=== PATIENT | female | born 1945 | race Caucasian/White ===

== ENCOUNTER 2019-09-25 11:30 | Outpatient (CLI) | payer MEDICARE, SELFPAY ==
--- NOTE | ~2019-09-25 | XR_ITS ---
XR wrist LT min 3V DATE: 09/25/2019 12:03 INDICATION: Left wrist and hand pain TECHNIQUE: 4 views COMPARISON: None FINDINGS: There is prominent osteoarthritic change at the first carpometacarpal joint. Moderate osteopenia. No fracture, dislocation, periosteal reaction or bone destruction. No erosive change or chondrocalcin osis. IMPRESSION: Osteoarthritis at first carpometacarpal joint Moderate osteopenia. Reviewed, dictated and finalized at location A.
--- NOTE | ~2019-09-25 | XR_ITS ---
XR hand LT min 3V DATE: 09/25/2019 12:03 INDICATION: Left hand pain TECHNIQUE: 3 views COMPARISON: None FINDINGS: There is osteoarthritis of the first carpometacarpal joint and multiple interphalangeal brissa nts with particularly severe involvement at the third and most severely at the second distal interpha langeal joints. There is medial subluxation at the second distal interphalangeal joint. There is caitlin re joint space narrowing and prominent spurring at the distal interphalangeal joints of the second an d third digits. Lesser osteoarthritic changes noted at additional interphalangeal joints of the hand. No fracture, dislocation, periosteal reaction or bone destruction. IMPRESSION: Polyarticular osteoarthritis, involving particularly the first carpometacarpal and second and third distal interphalangeal joints Reviewed, dictated and finalized at location A. IMPRESSION: Polyarticular osteoarthritis, involving particularly the first carp ometacarpal and second and third distal interphalangeal joints
== END 2019-09-25 11:31 | disposition home or self-care (01) ==
PROVIDERS: PCP Family Medicine; Visit Provider Nurse Practitioner Family
DX: M79.642 Pain in left hand (principal); M19.042 Primary osteoarthritis, left hand; M85.842 Other specified disorders of bone density and structure, left hand
CPT/HCPCS: 73110; 73130

== ENCOUNTER 2020-03-15 08:49 | Outpatient (CLI) | payer MEDICARE, SELFPAY ==
--- NOTE | ~2020-03-15 | MM_ITS ---
EXAMINATION: MM screening jaqueline BI w canelo HISTORY: Screening mammogram TECHNIQUE: Craniocaudal and mediolateral oblique 3-D tomosynthesis images were obtained and synthetic 2-D images were generated. CAD analysis was submitted and interpreted. COMPARISON: 03/06/2019, 03/04/2018, 03/09/2017 bilateral digital screening mammogram examinations BREAST PARENCHYMAL COMPOSITION: The breasts are heterogeneously dense, which may obscure small masses . FINDINGS: There are two biopsy markers on the right; history of two benign right breast biopsies. The re are multiple bilateral benign calcifications. There is no evidence of suspicious mass, calcificat ion, or architectural distortion to suggest malignancy in either breast. There has been no suspicious interval change. IMPRESSION: 1. No mammographic evidence of malignancy. 2. Recommend routine screening mammography in one year. BI-RADS Category 2: Benign finding(s). Reviewed, dictated and finalized at location A. LE HOME LOT UTILITY WORKER
== END 2020-03-15 08:50 | disposition home or self-care (01) ==
LOC: ANHIMG 08:56
PROVIDERS: PCP Family Medicine; Visit Provider Obstetrics & Gynecology Gynecology
DX: Z12.31 Encounter for screening mammogram for malignant neoplasm of breast (principal)
CPT/HCPCS: 77063; 77067

== ENCOUNTER 2020-05-25 11:53 | Observation (INO) | payer MEDICARE, SELFPAY ==
[2020-05-25] VITALS (13 sets, daily range): BP systolic 137–174; BP diastolic 70–84; PULSE 66–92; RESP 12–17; TEMP 36.4–36.9; O2SAT 98–100; BMI 21.4
--- NOTE | ~2020-05-25 | XR_ITS ---
EXAMINATION: XR chest 1V DATE: 05/25/2020 12:32 INDICATION: Syncope. TECHNIQUE: A single frontal view of the chest was obtained. COMPARISON: Chest single view 10/02/2016, chest CT 09/07/2006 FINDINGS: There is mild scarring at the lung apices. A calcified left lung nodule and calcified left hilar lymph nodes are consistent with old granulomatous disease. No pleural effusion or pneumothorax. The heart size is normal. IMPRESSION: 1. Mild scarring at the lung apices. Reviewed, dictated and finalized at location A. DENT CARE MANAGER RN
--- NOTE | ~2020-05-25 | CT_ITS ---
EXAMINATION: CT brain wo con DATE: 05/25/2020 12:31 INDICATION: Syncope. Headache. TECHNIQUE: Computed tomography (CT) of the head was performed without intravenous contrast. The mA wa s adjusted according to patient size. Iterative reconstruction technique was employed. Exam dose: 60 5.33 mGy-cm total exam DLP. COMPARISON: 02/24/2015 MRI brain/brainstem 02/24/[address] brain FINDINGS: No intracranial mass lesion or hemorrhage or recent cerebrovascular accident is evident. No midline shift or mass effect effect. Normal ventricular size. No subdural or epidural hematoma. Orbital contents are unremarkable. Mastoid air cells and included paranasal sinuses are unremarkable. No fracture or bone destruction of the cranial vault. IMPRESSION: No significant abnormality Reviewed, dictated and finalized at Location A. Reviewed, dictated and finalized at location A. MAN IMPRESSION: No significant abnormality
--- NOTE | ~2020-05-25 | US_ITS ---
EXAMINATION: US carotid duplex BI DATE: 05/26/2020 11:14 INDICATION: Syncope. TECHNIQUE: Grayscale, color Doppler, and pulsed Doppler images of the cervical carotid arteries were obtained. The degree of vessel stenosis is placed in one of the following categories: normal, <50%, 5 0-69%, >=70% but less than near-occlusion, near-occlusion, or total occlusion. Note that percent sten osis relative to normal distal artery lumen diameter is indirectly measured from velocity measurement s as described by Jun, et al. Radiology 2003; 229:340-346. COMPARISON: Ultrasound 02/25/2015 FINDINGS: RIGHT: The right common carotid artery (CCA) peak systolic velocity (PSV) is 86 cm/s. The right internal car otid artery (ICA) PSV is 97 cm/s. The right ICA end-diastolic velocity (EDV) is 26 cm/s. The right IC A/CCA PSV ratio is 1.1. Grayscale and color Doppler images yield an estimate of <50% diameter reducti on from plaque in the ICA. There is antegrade flow in the right vertebral artery. LEFT: The left CCA PSV is 74 cm/s. The left ICA PSV is 81 cm/s. The left ICA EDV is 32 cm/s. The left ICA/C CA PSV ratio is 1.1. Grayscale and color Doppler images yield an estimate of <50% diameter reduction from plaque in the ICA. There is antegrade flow in the left vertebral artery. IMPRESSION: 1. <50% stenosis in the right internal carotid artery. 2. <50% stenosis in the left internal carotid artery. Reviewed, dictated and finalized at location A. DEALER
--- NOTE | ~2020-05-25 | MR_ITS ---
EXAMINATION: MR brain/brain stem wo/w con EXAM DATE: 05/26/2020 10:52 INDICATION: Syncope. Dizziness. TECHNIQUE: Magnetic resonance imaging (MRI) of the brain/brain stem obtained without contrast. Sagit dian T1, axial diffusion, gradient echo (T2*), T1, T2, FLAIR sequences obtained. Patient was then inj ected with 10 cc intravenous Multihance contrast. Axial and coronal postcontrast T1 weighted sequence s obtained. Comparison is made to prior examination from 02/24/2015. FINDINGS: There are no areas of restricted diffusion to suggest acute infarction. There is no acute hemorrhage seen on the T2*, a hemosiderin sensitive sequence. No intraparenchymal brain mass lesion. Punctate old right pontine lacunar infarction. There is mild periventricular and subcortical T2/FL AIR signal hyperintensity, nonspecific but probably related to small vessel ischemic disease (microan giopathy). There are no extra-axial collections. Flow voids are seen in the cerebral arteries on t he T2-weighted sequences consistent with their expected patency. The orbits are unremarkable. Soft tissue is unremarkable. There are no areas of abnormal enhancement on the postcontrast images. IMPRESSION: 1. Punctate old right pontine lacunar infarction. 2. Chronic age related findings. Reviewed, dictated and finalized at location B. C TEACHER
--- NOTE | 2020-05-25 12:14 | ECG_ITS ---
Measurements Intervals [place] Rate: 66 P: 74 AK: 205 QRS: 64 QRSD: 102 T: 59 QT: 423 QTc: 446 Interpretive Statements SINUS RHYTHM POSSIBLE LEFT ATRIAL ENLARGEMENT BORDERLINE ECG Electronically Signed On 05-25-2020 13:06:53 PIPE INSULATOR HELPER by Bradford Pacheco D.O.
--- NOTE | 2020-05-25 12:17 | ED.SYNCOPE ---
HPI - Syncope General Chief Complaint: Syncope Stated Complaint: SYNCOPAL EVENT, DIZZINESS Time Seen by Provider: 05/25/20 12:00 Source: patient Mode of arrival: wheelchair Limitations: no limitations History of Present Illness HPI narrative: Patient is 74 year old female with history of hypertension who presents for evaluation of a syncopal episode. She states she pulled out to her orthodox and she started feeling back all over. She returns she then passed out. When she gained consciousness, she had nausea and a mild headache. She called her , and he drove her to ER. She reports weakness and difficulty standing due to weakness. She continues to have nausea, but denies fever, vomiting or diarrhea. She denies chest pain, shortness of breath, palpitations . She denies history of passing out. Related Data Home Medications Medication Instructions Recorded Confirmed amlodipine 5 mg PO DAILY 05/25/20 05/25/20 aspirin 325 mg PO HS 05/25/20 05/25/20 atorvastatin 20 mg PO HS 05/25/20 05/25/20 levothyroxine 25 mcg PO DAILY 05/25/20 05/25/20 lisinopril 40 mg PO DAILY 05/25/20 05/25/20 polysorbate 80-glycerin [Refresh 1 drp OPHTHALMIC (EYE) BID PRN 05/25/20 05/25/20 Dry Eye Therapy] Allergies Allergy/AdvReac Type Severity Reaction Status Date / Time No Known Allergies Allergy Verified 05/25/20 16:24 Review of Systems Review of Systems: All systems reviewed & are unremarkable except as noted in HPI and below PMFSH Past Medical History Medical History (Updated 05/25/20 @ 17:54 by Mary Garcias NP) Graves disease History of TIA (transient ischemic attack) HTN (hypertension) with goal to be determined Hyperlipidemia Hypertension Surgical History Surgical History (Updated 05/25/20 @ 12:25 by Renee Castro MD) H/O: hysterectomy Family History Family History (Updated 05/25/20 @ 17:49 by Mary Garcias NP) Mother Diabetes mellitus Father Acute myocardial infarction Social History Social History (Updated 05/25/20 @ 17:50 by Mary Garcias NP) Social History: The patient lives with her Fahad and he is the durable power securities attorney for healthcare. The patient is a full code. The patient has 3 children. 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 Rarely drinks alcohol and does not use marijuana or any illicit drugs. Smoking status: Never smoker Alcohol intake: former Alcohol use details: rarely Substance use: never Gender identity (if verbalized by the patient): Female Spiritual care concerns: No Exam Const: General: no acute distress and alert Orientation/consciousness: patient oriented x3 HENMT: Head: normocephalic and atraumatic Ears: TM's normal bilaterally Face and sinus: face symmetric Mouth: Yes Normal oral and palatal mucosa present, Yes lip normal, Yes oropharynx normal and Yes moist mucous membranes Throat: posterior oropharynx normal, tonsils normal and uvula midline Eyes: EOM: EOMs intact bilaterally Chest: Chest palpation & inspection: normal inspection of the chest Resp: Effort & Inspection: normal respiratory effort and no retractions Auscultation: clear to auscultation bilaterally Cardio: Rate: regular rate Rhythm: regular rhythm Heart sounds: no murmurs GI: GI Palp: Yes Soft to palpation, No Tenderness to palpation present (GI) and No Guarding due to palpation present (GI) Auscultation: normal bowel sounds Skin: General skin exam: normal color Rashes: no rashes Neuro: General: patient oriented x3, moves all extremities and CN's II-XI intact bilaterally Course Consultations Consultation #1: I discussed case with Mary who accepts for observation for evaluation of syncope Date: 05/25/20 Time: 13:22 Vital Signs Vital signs: Vital Signs Pulse Rate 70 05/25/20 12:04 Respiratory Rate 17 05/25/20 12:04 Blood Pressure 140/78 05/25/20 12:04 Pulse Oximetry 100 05/25/20 12:04 Tem
--- NOTE | 2020-05-25 12:26 | PC.NURSE ---
1226 - Patient to CT at this time.
[2020-05-25 12:31] LABS: Basophils Percent Auto 0.7 % (0.2-1.2); Eosinophils Absolute Auto 0.2 K/mm3 (0-0.3); Eosinophils Percent Auto 2.9 % (0-4.4); Hematocrit 38.2 % (37.0-47.0); Hemoglobin 12.1 g/dL (12.0-15.0); Immature Granulocyte Absolute 0.02 K/mm3 (0.00-0.031); Immature Granulocyte Percent A 0.3 % (0-0.5); Lymphocytes Absolute Auto 1.62 K/mm3 (0.9-3.2); Mean Corpuscular HGB Conc 31.7 g/dl (32-36); Mean Corpuscular Hemoglobin 30.9 pg (26-34); Mean Corpuscular Volume 97.7 fl (80-100); Mean Platelet Volume 9.5 fl (7.4-10.4); Monocytes Absolute Auto 0.8 K/mm3 (0.1-0.6); Monocytes Percent Auto 13.5 % (2.6-8.5); Neutrophils Absolute Auto 3.2 K/mm3 (1.3-6.7); Neutrophils Percent Auto 54.6 % (45.5-73.1); Platelet Count Result 151 k/mm3 (150-375); Red Blood Count 3.91 M/mm3 (4.2-5.4); Red Cell Distribution Width 12.7 % (11.5-14.5); White Blood Count 5.8 K/mm3 (4.5-10.0)
[2020-05-25] MEDS: ONDANSETRON INJ 4 MG/2 ML VIAL IV PUSH (12:43)
[2020-05-25 12:46] LABS: Alanine Aminotransferase 25 U/L (4-35); Albumin Level 4.1 g/dL (3.5-5.1); Alkaline Phosphatase 80 U/L (38-126); Anion Gap 9 mmol/L (8-16); Aspartate Amino Transferase 38 U/L (14-36); Bilirubin,Total 0.4 mg/dL (0.2-1.3); Blood Urea Nitrogen 17 mg/dL (7-17); Carbon Dioxide 27 mmol/L (22-30); Chloride 106 mmol/L (98-107); Estimated CRCL calculation 53 ml/min; Estimated Glomerular Filt Rate > 60; Glucose 110 mg/dL (65-105); Magnesium 1.8 mg/dL (1.6-2.3); Potassium 3.9 mmol/L (3.4-5.0); Sodium 142 mmol/L (137-145)
[2020-05-25 12:57] LABS: Add Urine Microscopic? NO; Appearance Urine Clear (Clear); Bacteria Urine Trace /hpf; Bilirubin Urine Negative (Negative); Blood Urine Negative (Negative); Color Urine Colorless (Yellow); Glucose Urine UA Negative (Negative); Ketones Urine Negative (Negative); Leukocyte Esterase Ur Negative LEU/UL (Negative); Mucus Urine Rare /lpf; Nitrate Urine Negative (Negative); Protein Urine Negative (Negative); RBC Urine 0-2 /hpf (0-2); Urobilinogen Urine Negative mg/dL (<2.0); WBC Urine 0-3 /hpf
[2020-05-25 13:00] LABS: Troponin I < 0.012 ng/mL (0.000-0.034)
[2020-05-25 13:05] LABS: INR 0.9; Prothrombin Time 12.7 Seconds (11.1-14.7)
[2020-05-25 13:07] LABS: Partial Thromboplastin Time 26.4 SECONDS (22.3-36.8)
[2020-05-25 14:03] LABS: Glucose Point of Care 97 (65-105)
--- NOTE | 2020-05-25 15:21 | PC.NURSE ---
1522 - Report called to RN on 3rd med floor.
--- NOTE | 2020-05-25 15:51 | ADMGEN ---
This patient, Óscar Pak, was admitted to 3 Medical Room 340-01. Patient/family oriented to hospital policies and general routines including ID bracelet, bed and alarms, visiting hours, pain management, procedures, bathroom and other care routines, personal items, smoking policy, room service/diet, and visiting hours. Information on how to activate the Rapid Response Team has been discussed. Patient/Family are encouraged to report perceived risks to care and to ask questions if they do not understand what they are told or what they should do.
--- NOTE | 2020-05-25 17:40 | PM.IMHP ---
H&P: HPI History of Present Illness Date/Time: 05/25/20 17:40 Chief Complaint: Syncopal episode Narrative: Óscar Pak is a 74 year old female of having crease disease and hypertension. The patient came in to the emergency room to be evaluated for syncopal episode today. The patient stated that she was going to pickle maker her granddaughter. She was outside of the yarsanism in her car. She said that she started to have a pain all over her body and felt very dizzy. She also felt very nauseated. She said she has not been sleeping very well. She said that she just blacked out in her car. The car was not moving she was just sitting there. She was not sure how long she lost consciousness but when she regained consciousness she called her . He came to pick her up. She did have weakness and difficulty standing at that time. Since that time I did ambulate her to the bathroom without any difficulty. She has no focal weakness. No difficulty swallowing or any slurred speech. She has no fever chills. Patient stated that usually her thyroid levels are within normal limits. She was due to have her thyroid level checked tomorrow. The chest x-ray was read as mild scarring at the lung bases. Head CT was noted to have no abnormalities. Patient's blood pressure 174/84. The patient stated that she started to feel much better but wanted to stay overnight just to be monitored. Heart rate is 66 and she sinus rhythm possible left atrial enlargement. Patient is being admitted into observation status on the date of service of 05/25/2020. Review of Systems Review of Systems: All systems reviewed & are unremarkable except as noted in HPI and below Constitutional: Constitutional: Reports as per HPI and Reports no additional constitutional complaints Eyes: Eyes: Reports as per HPI and Reports no additional eye complaints ENT: Reports system reviewed and no additional complaints, except as documented and Reports Normal hearing present Cardiovascular: Cardiovascular: Reports no additional cardiovascular complaints Respiratory: Respiratory: Reports no additional respiratory complaints and Reports no additional respiratory complaints Gastrointestinal: Gastrointestinal: Reports as per HPI and Reports no additional gastrointestinal complaints Musculoskeletal: Musculoskeletal: Reports no additional musculoskeletal complaints Integumentary/Breasts: Skin/Breast: Reports system reviewed and no additional complaints, except as docu and Reports as per HPI Neurologic: Reports system reviewed and no additional complaints, except as documented, Reports as per HPI and Reports Normal hearing present Psychiatric: Psychiatric: Reports no additional psychiatric complaints and Reports as per HPI Endocrine: Endocrine: Reports no additional endocrine complaints Hematologic/Lymphatic: Hematologic/Lymphatic: Reports no additional hematologic/lymphatic complaints Allergic/Immunologic: Allergic/Immunologic: Reports no additional allergic/immunologic complaints [facility] Past Medical History Medical History (Updated 05/25/20 @ 17:54 by Mary Garcias NP) Graves disease History of TIA (transient ischemic attack) HTN (hypertension) with goal to be determined Hyperlipidemia Hypertension Surgical History Surgical History (Updated 05/25/20 @ 12:25 by Renee Castro MD) H/O: hysterectomy Family History Family History (Updated 05/25/20 @ 17:49 by Mary Gracias NP) Mother Diabetes mellitus Father Acute myocardial infarction Social History Social History (Updated 05/25/20 @ 17:50 by Mary Garcias NP) Social History: The patient lives with her Fahad and he is the durable power corporate associate attorney for healthcare. The patient is a full code. The patient has 3 children. 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 Rarely drinks alcohol and does not use marijuana or any illicit drugs. Smoking status: Never smoker Alcohol intake:
[2020-05-25] MEDS: ASPIRIN 325 MG TABLET PO (20:01)
[2020-05-25] MEDS: ATORVASTATIN 20 MG TABLET PO (20:01)
[2020-05-26] VITALS (13 sets, daily range): BP systolic 129–153; BP diastolic 58–84; PULSE 64–100; RESP 16; TEMP 36.4–36.6; O2SAT 96–100
[2020-05-26] MEDS: LEVOTHYROXINE SODIUM 25 MCG TABLET PO (05:30)
--- NOTE | 2020-05-26 06:00 | ECHO_ITS ---
Patient Info Name: Óscar Pak Age: 74 years : 1945 Gender: Female Ht: 64 in Wt: 125 lbs BSA: 1.60 m2 HR: 78 bpm BP: 146 / 76 mmHg Heart Rhythm: Sinus Rhythm Technical Quality: Good Exam Date: 05/26/2020 2:12 PM Exam Location: [facility] Patient Status: Outpatient Admit Date: 05/25/2020 Staff Ordering Physician: Renee Castro MD No Bake Molder: Alicja Green RDCS Attending Provider: Fidelia Noble PA-C Referring Physician: Matthew PRICE; Exam Type: CA echo doppler color flow Study Info Indications R55 - Syncope and collapse Complete two-dimensional, color flow and Doppler transthoracic echocardiogram is performed. Summary 1. Complete two-dimensional, color flow and Doppler transthoracic echocardiogram is performed. 2. Left ventricular systolic function is normal, estimated at 65-70%. 3. There is no increased left ventricular wall thickness. 4. The left ventricular diastolic function is normal. 5. There is mild mitral valve regurgitation. 6. There is trace tricuspid valve regurgitation. 7. Unable to estimate PA systolic pressure due to poor spectral resolution of tricuspid regurgitant jet velocity. 8. There is trivial pericardial effusion, circumferentially. There is a moderate loculated pericardial effusion in proximity to the right atrium without apparent invagination of the right atrial free wall. No evidence of tamponade physiology. Left Ventricle Left ventricular chamber dimension is normal. Left ventricular systolic function is normal, estimated at 65-70%. There is no increased left ventricular wall thickness. The left ventricular diastolic function is normal. Right Ventricle Right ventricular chamber dimension is normal. Right ventricular systolic function is normal. Left Atria Left atrial chamber dimension is normal. Right Atria Right atrial chamber dimension is normal. Aortic Valve The aortic valve is probable trileaflet. There is no aortic valve stenosis. There is no aortic valve regurgitation. Pulmonic Valve The pulmonic valve is not well visualized. There is trace pulmonic regurgitation. Mitral Valve The mitral valve has normal leaflets. There is mild mitral valve regurgitation. The mitral valve annulus is moderately calcified. Tricuspid Valve The tricuspid valve leaflets are normal. There is trace tricuspid valve regurgitation. Unable to estimate PA systolic pressure due to poor spectral resolution of tricuspid regurgitant jet velocity. Pericardium/Pleural The pericardium appears normal. There is trivial pericardial effusion, circumferentially. There is a moderate loculated pericardial effusion in proximity to the right atrium without apparent invagination of the right atrial free wall. No evidence of tamponade physiology. Inferior Vena Cava Normal inferior vena cava with >50% collapse upon inspiration consistent with normal right atrial pressure, 5 mmHg. Aorta The aortic root size at the sinus of Valsalva is normal. Left Ventricular Outflow Tract Name Value Normal LVOT 2D LVOT Diameter 2.0 cm LVOT Doppler LVOT Peak Gradient
[2020-05-26 06:07] LABS: Chloride 105 mmol/L (98-107)
[2020-05-26 06:53] LABS: Alanine Aminotransferase 24 U/L (4-35); Albumin Level 3.6 g/dL (3.5-5.1); Alkaline Phosphatase 72 U/L (38-126); Anion Gap 3 mmol/L (8-16); Aspartate Amino Transferase 34 U/L (14-36); Bilirubin,Total 0.5 mg/dL (0.2-1.3); Blood Urea Nitrogen 17 mg/dL (7-17); Calcium 8.8 mg/dL (8.4-10.2); Carbon Dioxide 29 mmol/L (22-30); Estimated CRCL calculation 42 ml/min; Estimated Glomerular Filt Rate > 60; Glucose 97 mg/dL (65-105); Magnesium 2.1 mg/dL (1.6-2.3); Potassium 4.2 mmol/L (3.4-5.0); Sodium 137 mmol/L (137-145)
[2020-05-26] MEDS: lisinopriL 20 MG TABLET 40 MG PO (09:04)
[2020-05-26] MEDS: amLODIPine BESYLATE 5 MG TABLET PO (09:04)
--- NOTE | 2020-05-26 16:08 | PM.IMPN ---
Progress Note: A&P Assessment and Plan (1) Syncopal episodes: Code(s): R55 - Syncope and collapse Status: Acute Assessment and Plan: Patient's symptoms seem more concerning for possible seizure (absence versus partial) or possible cardiac arrhythmia -will await echo -telemetry shows no abnormal arrhythmias. There are few PVCs -neurology has been consulted and recommended an EEG -patient may benefit from a 28 day Holter monitor if etiology is not found -we discussed that she will not be able to drive for at least a month until we make sure this does not reoccur -MRI and carotids negative for acute pathology -she does have a history of stroke on MRI that she takes aspirin for (2) Graves disease: Code(s): E05.00 - Thyrotoxicosis with diffuse goiter without thyrotoxic crisis or storm Status: Chronic Assessment and Plan: TSH within normal limits (3) Hyperlipidemia: Code(s): E78.5 - Hyperlipidemia, unspecified Status: Chronic Assessment and Plan: Chronic, continue atorvastatin (4) HTN (hypertension) with goal to be determined: Code(s): I10 - Essential (primary) hypertension Status: Acute Assessment and Plan: Last blood pressure 146/79 - Continue with amlodipine and lisinopril. Time Spent With Patient Time with patient: 25 - 35 minutes Subjective Date/time seen: 05/26/20 16:08 Interval history: Pt is a 74-year-old female here for loss of consciousness. Patient was seen today and there is events were reviewed again with her. She states that she was in her normal state health and she was sitting in her parked car and then suddenly felt out of her body . She had no numbness, tingling, involuntary movements, sweating, lightheadedness, or dizziness immediately prior to this. She just stated she felt weird and then noticed she had possible loss of consciousness because she does not remember what happened for a few seconds. She did not fall forward or anything like that. She does not recall any involuntary movements and did not have any pain or focal weakness afterwards. Immediately after, she was able to call her . She got out of the car and said she generally felt weak and nauseated but no other symptoms. This is never happened before in the past other than her syncopized being more than 20 years ago after standing at a hospital which does not seem to be related. At this time she has not had any recurrence. Pt denies nausea, vomiting, fevers, chills, constipation, diarrhea, chest pain, sob, or abdominal pain. Review of Systems Review of Systems: All systems reviewed & are unremarkable except as noted in HPI and below Exam Narrative: Exam Narrative: General: Well developed well nourished patient in NAD HEENT: normocephalic Neck: supple Neuro: Alert and oriented x4. Cranial nerves 2-12 intact. Equal strength the upper lower extremities 5/5. Able to do alternating movements and [id number] CV:RRR. Telemetry just shows occasional PVCs Resp:CTA Abd: Soft, non distended. No pain to palpation. Positive bowel sounds Extremities: No swelling, erythema, or pain to palpation. Objective Data Vital Signs Vital Signs: Vital Signs - 24 hr 05/25/20 19:40 05/25/20 19:42 05/25/20 19:44 Temperature 98.4 F Pulse Rate 74 Respiratory Rate 16 Blood Pressure 137/74 137/73 143/82 H Pulse Oximetry 99 05/25/20 20:00 05/26/20 00:00 05/26/20 04:00 Temperature Pulse Rate 69 75 66 Respiratory Rate Blood Pressure Pulse Oximetry 05/26/20 05:29 05/26/20 08:00 05/26/20 08:09 Temperature 97.7 F Pulse Rate 71 100 Respiratory Rate 16 Blood Pressure 136/58 L 145/79 H Pulse Oximetry 96 05/26/20 08:10 05/26/20 12:00 05/26/20 13:56 Temperature 97.6 F Pulse Rate 77 77 Respiratory Rate 16 Blood Pressure 143/84 H 146/79 H Pulse Oximetry 100 Intake/Output Intake/Output: Intake & Outpu
[2020-05-26] MEDS: SACCHAROMYCES BOULARDII 250 MG CAPSULE PO (18:15)
[2020-05-26] MEDS: ASPIRIN 325 MG TABLET PO (22:25)
[2020-05-26] MEDS: ATORVASTATIN 20 MG TABLET PO (22:26)
[2020-05-27] VITALS (8 sets, daily range): BP systolic 131–143; BP diastolic 55–80; PULSE 65–90; RESP 16; TEMP 36.2; O2SAT 98
[2020-05-27] MEDS: LEVOTHYROXINE SODIUM 25 MCG TABLET PO (06:37)
[2020-05-27] MEDS: lisinopriL 20 MG TABLET 40 MG PO (08:24)
[2020-05-27] MEDS: SACCHAROMYCES BOULARDII 250 MG CAPSULE PO (08:24)
[2020-05-27] MEDS: amLODIPine BESYLATE 5 MG TABLET PO (08:25)
--- NOTE | 2020-05-27 12:06 | WPDNEURCNPN ---
Assessment and Plan Assessment and plan (1) Syncopal episodes: Code(s): R55 - Syncope and collapse Status: Acute (2) Graves disease: Code(s): E05.00 - Thyrotoxicosis with diffuse goiter without thyrotoxic crisis or storm Status: Chronic (3) HTN (hypertension) with goal to be determined: Code(s): I10 - Essential (primary) hypertension Status: Acute (4) Hyperlipidemia: Code(s): E78.5 - Hyperlipidemia, unspecified Status: Chronic Additional Plan all the pros and cons of the diagnosis were discussed with the patient, at this stage we do not think that it is seizure but in the future if episodes recur then they would like to re-evaluate her and follow in the office. Consult date: 05/27/20 Time Seen: 12:00 HPI: Óscar Pak is a 74 year old female admitted to the hospital for syncopal episode, reportedly she was going to shrimp picker her granddaughter and was outside of the restorationist in her car when she started having pain all over her body and felt extremely dizzy along with the nausea. she has not been sleeping very well. she blacked out in the car and was not sure how long she was out but when she became conscious she called her . subsequently was experiencing weakness and difficulties in standing, at the time of initial evaluation in the ER chest x-ray was negative ,CT scan the brain was normal . admitted to the hospital for further observation. does have a history of Graves disease, TIA in the past, hypertension and hyperlipidemia, never smoker former alcohol drinker and medications included amlodipine aspirin and atorvastatin levothyroxine lisinopril with no allergies. Doppler study of the carotid less than 50% stenosis bilaterally, echocardiogram with mild mitral valve regurgitation tricuspid regurgitation and trivial pericardial effusion circumferentially, MRI with chronic age-related finding along with punctate old right pontine lacunar infarction. Review of Systems Review of Systems: All systems reviewed & are unremarkable except as noted in HPI and below PMFSH Past Medical History Medical History Graves disease History of TIA (transient ischemic attack) HTN (hypertension) with goal to be determined Hyperlipidemia Hypertension Surgical History Surgical History H/O: hysterectomy Family History Family History Mother Diabetes mellitus Father Acute myocardial infarction Social History Social History Social History: The patient lives with her Fahad and he is the durable power attorney general for healthcare. The patient is a full code. The patient has 3 children. 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 Rarely drinks alcohol and does not use marijuana or any illicit drugs. Smoking status: Never smoker Alcohol intake: former Alcohol use details: rarely Substance use: never Gender identity (if verbalized by the patient): Female Spiritual care concerns: No Meds Home Medications and Allergies Home Medications Medication Instructions Recorded Confirmed Type amlodipine 5 mg PO DAILY 05/25/20 05/25/20 History aspirin 325 mg PO HS 05/25/20 05/25/20 History atorvastatin 20 mg PO HS 05/25/20 05/25/20 History levothyroxine 25 mcg PO DAILY 05/25/20 05/25/20 History lisinopril 40 mg PO DAILY 05/25/20 05/25/20 History polysorbate 80-glycerin [Refresh 1 drp OPHTHALMIC (EYE) BID PRN 05/25/20 05/25/20 History Dry Eye Therapy] Allergies Allergy/AdvReac Type Severity Reaction Status Date / Time No Known Allergies Allergy Verified 05/25/20 16:24 Vital Signs Vital Signs - 24 hr 05/26/20 13:56 05/26/20 16:00 05/26/20 19:33 Temperature 36.4 C 36.6 C Pulse Rate 77 81 64 Respiratory Rate 16 16 Blood Pressure 146/79 H 1
--- NOTE | 2020-05-27 12:37 | P.NEURO_ITS ---
Neurology EEG Report General Information Date of Study: 05/27/20 TEST eeg DIAGNOSIS Syncopal episode CONDITION OF RECORDING awake drowsy and sleep EEG NUMBER 21-85 CLINICAL HISTORY patient reported she loss consciousness 2 days ago for a very brief movement and then was nauseous and weak. A new arthritis medication was started about 2 days ago EEG DESCRIPTION basic resting occipital frequency consists of large amount of well-organized l ow to medium voltage 8 to 10 hertz per 2nd alpha admixed with minimal amount of low-voltage 15 to 18 hertz per 2nd beta. During drowsiness low-voltage beta activity seen diffusely admixed with waxing and waning alpha activity posteriorly. Bilateral symmetrical sleep activity seen during sleep hyperventilation not done photic stimulation not done. Non paroxysmal. Nonfocal. Nonlateralizing. IMPRESSION Normal EEG
--- NOTE | 2020-05-27 13:25 | PM.DS ---
DS: Admitting Diagnosis Admitting Diagnosis Admitting Diagnosis: Loss of consciousness DS: Discharge Diagnosis Discharge Diagnosis (1) Syncopal episodes: Code(s): R55 - Syncope and collapse Status: Acute Assessment and Plan: Syncope verses loss of consciousness -echo nor EEG shows any abnormality -telemetry shows no abnormal arrhythmias. There are few PVCs -neurology has been consulted and has no additional recommendations -patient may benefit from a 28 day Holter monitor if this reoccurs. plan to f/u with pcp and cardiology -we discussed that she will not be able to drive for at least a month until we make sure this does not reoccur -MRI and carotids negative for acute pathology -she does have a history of stroke on MRI that she takes aspirin for (2) Graves disease: Code(s): E05.00 - Thyrotoxicosis with diffuse goiter without thyrotoxic crisis or storm Status: Chronic Assessment and Plan: TSH within normal limits (3) Hyperlipidemia: Code(s): E78.5 - Hyperlipidemia, unspecified Status: Chronic Assessment and Plan: Chronic, continue atorvastatin (4) HTN (hypertension) with goal to be determined: Code(s): I10 - Essential (primary) hypertension Status: Acute Assessment and Plan: Last blood pressure 140/76 - Continue with amlodipine and lisinopril. (5) Abnormal echocardiogram: Code(s): R93.1 - Abnormal findings on diagnostic imaging of heart and coronary circulation Status: Acute Assessment and Plan: Echo states: There is trivial pericardial effusion, circumferentially. There is a moderate loculated pericardial effusion in proximity to the right atrium without apparent invagination of the right atrial free wall. No evidence of tamponade physiology. Spoke with the patient and Cardiology about this. She has no signs of tamponade and I do not believe this is the cause of her syncope. Cardiology recommended to follow-up with them in the office. I educated the patient on worrisome signs and symptoms to come back to emergency room for. DS: Summary Hospital Course Hospital Course: Patient is 74-year-old female with a past medical history of hypertension and previous stroke who presented emergency room for a few seconds of loss of conscious. Patient states she was sitting in her car and then felt like she spaced out . She states that she was in her normal state health and she was sitting in her parked car and then suddenly felt out of her body . She had no numbness, tingling, involuntary movements, sweating, lightheadedness, or dizziness immediately prior to this. She just stated she felt weird and then noticed she had possible loss of consciousness because she does not remember what happened for a few seconds. She did not fall forward or anything like that. She does not recall any involuntary movements and did not have any pain or focal weakness afterwards. Immediately after, she was able to call her . She got out of the car and said she generally felt weak and nauseated but no other symptoms. This is never happened before in the past other than her syncopized being more than 20 years ago after standing at a hospital which does not seem to be related. During this hospitalization she underwent a brain MRI which showed an old stroke but nothing new, carotid Doppler which showed no significant disease, EEG which was normal, and was monitored on telemetry which showed no arrhythmias. Labs, including TSH, were normal. UA negative. She did have an echo that was abnormal, please see above for further details. All-in-all, the patient did not have any recurring symptoms and was eager for discharge. She was educated about worrisome signs and symptoms to come back to emergency room for and was discharged in stable condition. Status at Discharge Functional status at discharge: independent ambulation Overall status
== END 2020-05-27 13:50 | disposition home or self-care (01) ==
LOC: ANHED 13:43 → ANH3MED 14:43
PROVIDERS: Nurse Practitioner; Admitting Provider Internal Medicine; Emergency Provider General Practice; PCP Family Medicine; Visit Provider Physician Assistant
DX: R55 Syncope and collapse (principal); E05.00 Thyrotoxicosis with diffuse goiter without thyrotoxic crisis or storm; E78.5 Hyperlipidemia, unspecified; I10 Essential (primary) hypertension; R93.1 Abnormal findings on diagnostic imaging of heart and coronary circulation; R53.1 Weakness; R91.8 Other nonspecific abnormal finding of lung field; I31.3 Pericardial effusion (noninflammatory); I65.23 Occlusion and stenosis of bilateral carotid arteries; R11.0 Nausea; Z79.82 Long term (current) use of aspirin; Z79.899 Other long term (current) drug therapy; Z86.73 Personal history of transient ischemic attack (TIA), and cerebral infarction without residual deficits
CPT/HCPCS: 36415; 70450; 70553; 71045; 80053; 81003; 82948; 83605; 83735; 84443; 84484; 85025; 85610; 85730; 93005; 93306; 93880; 95816; 96374; 99285; A9270; A9577; G0378; J2405

== ENCOUNTER → 2020-06-29 13:25 | Outpatient (CLI) | payer MEDICARE, SELFPAY ==
--- NOTE | ~2020-06-29 | DEXA_ITS ---
Bone Density Report Name: Óscar Pak Age: 74 Sex: Female Ethnicity: White Date of : 1945 Indication: osteopenia; hysterectomy; Referring Provider: CATALINA LOPEZ Study: Bone densitometry was performed. Exam Date: June 29, 2020 Accession number: [id number] Bone Density: Region BMD T-score Z-score Classification AP Spine (L1-L4) 0.983 -0.6 1.7 Normal Femoral Neck (Left) 0.596 -2.3 -0.3 Osteopenia Total Hip (Left) 0.855 -0.7 1.0 Normal Femoral Neck (Right) 0.570 -2.5 -0.5 Osteoporosis Total Hip (Right) 0.749 -1.6 0.1 Osteopenia Total Hip Mean 0.802 -1.2 0.6 Osteopenia World Health Organization criteria for BMD impression classify patients as: Normal (T-score at or above -1.0), Osteopenia (T-score between -1.0 and -2.5), or Osteoporosis (T-score at or below -2.5). 10-year Fracture Risk: FRAX not reported because: Some T-score for Spine Total or Hip Total or Femoral Neck at or below -2.5 Previous Exams: Region Exam Age BMD T-score BMD Change BMD Change Date g/cm2 vs Baseline vs Previous AP Spine(L1-L4) 06/29/2020 74 0.983 -0.6 -0.025* -0.029* 03/05/2018 72 1.012 -0.3 0.004 -0.013 01/18/2016 70 1.025 -0.2 0.017 0.017 07/29/2009 63 1.008 -0.4 Total Hip(Left) 06/29/2020 74 0.855 -0.7 0.020 -0.014 03/05/2018 72 0.869 -0.6 0.034* -0.016 01/18/2016 70 0.885 -0.5 0.050* 0.050* 07/29/2009 63 0.835 -0.9 Total Hip(Right) 06/29/2020 74 0.749 -1.6 0.009 -0.022 03/05/2018 72 0.770 -1.4 0.030* -0.020 01/18/2016 70 0.791 -1.2 0.050* 0.050* 07/29/2009 63 0.740 -1.7 *Denotes significance at 95% confidence level, LSC for AP Spine = 0.022 g/cm2, LSC for Total Hip = 0.027 g/cm2 Clinical Information Provided by Patient: Has used the following medications: Vitamin D Has the following medical conditions: Hysterectomy Patient maximum height was 64.5 Menopause Age: 51 Does not regularly consume dairy products Drinks caffeinated beverages Onset of menses at age 14 Number of children 3 Impression: The patient has osteoporosis, based on the Right Femoral Neck T-score. The BMD for the AP Spine(L1-L4) decreased, changing by -0.029 since the last DXA exam. Discussion: INCREASED RISK OF FRACTURE. BONE DENSITY IS UNDESIRABLY LOW AT ONE OR MORE SKE
== END ==
PROVIDERS: PCP Family Medicine; Visit Provider Obstetrics & Gynecology Gynecology
DX: Z78.0 Asymptomatic menopausal state (principal); M85.852 Other specified disorders of bone density and structure, left thigh; M85.851 Other specified disorders of bone density and structure, right thigh; M81.0 Age-related osteoporosis without current pathological fracture
CPT/HCPCS: 77080

== ENCOUNTER 2020-08-15 13:43 | Outpatient (CLI) | payer MEDICARE, SELFPAY ==
--- NOTE | ~2020-08-15 | CT_ITS ---
EXAMINATION: CT brain wo/w con DATE: 08/15/2020 14:16 INDICATION: Syncope. TECHNIQUE: Computed tomography (CT) of the head was performed without and with 100 mL Omnipaque 350 i ntravenous contrast. The mA was adjusted according to patient size. Iterative reconstruction techniqu e was employed. The dose-length product was 1210.67 mGy-cm. COMPARISON: Head CT 05/25/2020, brain MRI 05/25/2020 FINDINGS: There are scattered areas of low attenuation in the cerebral white matter, which is within normal limits for the patient's age. There is no intracranial hemorrhage, acute infarction, or abnorm al intracranial mass lesion. The ventricles are normal in size. The paranasal sinuses are clear. Ther e is a small right mastoid effusion. IMPRESSION: 1. Normal aging brain. Reviewed, dictated and finalized at location A. IMPRESSION: 1. Normal aging brain.
[2020-08-15 14:08] LABS: Estimated Glomerular Filt Rate > 60
== END 2020-08-15 13:44 | disposition home or self-care (01) ==
PROVIDERS: PCP Family Medicine; Visit Provider Nurse Practitioner Family
DX: R55 Syncope and collapse (principal)
CPT/HCPCS: 70470; Q9967

== ENCOUNTER 2021-03-22 15:02 | Outpatient (CLI) | payer MEDICARE, SELFPAY ==
--- NOTE | ~2021-03-22 | MM_ITS ---
EXAMINATION: MM screening jaqueline BI w canelo HISTORY: Screening mammogram TECHNIQUE: Craniocaudal and mediolateral oblique 3-D tomosynthesis images were obtained and synthetic 2-D images were generated. CAD analysis was submitted and interpreted. COMPARISON: 03/15/2020, 03/06/2019, 03/04/2018 bilateral screening mammogram examinations BREAST PARENCHYMAL COMPOSITION: The breasts are heterogeneously dense, which may obscure small masses . FINDINGS: Right-sided biopsy markers are again noted; history of prior benign right breast biopsies. Scattered bilateral benign calcifications are again noted. There is no evidence of suspicious mass, c alcification, or architectural distortion to suggest malignancy in either breast. There has been no s uspicious interval change. IMPRESSION: 1. No mammographic evidence of malignancy. 2. Recommend routine screening mammography in one year. BI-RADS Category 2: Benign finding(s). Reviewed, dictated and finalized at location A. ETIC SALES CONSULTANT
== END 2021-03-22 15:03 | disposition home or self-care (01) ==
LOC: ANHIMG 15:04
PROVIDERS: PCP Family Medicine; Visit Provider Obstetrics & Gynecology Gynecology
DX: Z12.31 Encounter for screening mammogram for malignant neoplasm of breast (principal)
CPT/HCPCS: 77063; 77067

== ENCOUNTER → 2021-10-06 09:32 | Outpatient (CLI) | payer MEDICARE, SELFPAY ==
--- NOTE | ~2021-10-06 | XR_ITS ---
XR_CERV2-3V_CR DATE: 10/06/2021 10:04 INDICATION: Neck pain TECHNIQUE: Standing AP, lateral, open-mouth and swimmer views COMPARISON: None FINDINGS: C1 and C2 are normally aligned and the odontoid process is intact. There is mild loss of height at C2-3 interspace. There is 3 mm anterolisthesis at C5-6. There is severe degenerative change at the apophyseal joints of the cervical spine. No fracture or dislocation or locked facet or prevertebral soft tissue swelling is detected. IMPRESSION: Severe degenerative change of the apophyseal joints of the cervical spine 3 mm anterolisthesis at C5-6 Reviewed, dictated and finalized at Location A. Reviewed, dictated and finalized at location A.
--- NOTE | ~2021-10-06 | XR_ITS ---
XR thoracic spine 2V DATE: 10/06/2021 10:04 INDICATION: Thoracic back pain TECHNIQUE: AP, lateral views COMPARISON: 10/06/2021 cervical spine FINDINGS: There is osteopenia. There is mild anterolisthesis at T1-2. There is moderate levoscoliosis of the thoracic spine. The thoracic pedicles are intact. No fracture or dislocation or bone destruction is detected. No para spinal soft tissue thickening. IMPRESSION: Osteopenia Levoscoliosis Mild anterolisthesis at T1 -2 Reviewed, dictated and finalized at location A.
== END ==
PROVIDERS: PCP Family Medicine; Visit Provider Nurse Practitioner Family
DX: M85.88 Other specified disorders of bone density and structure, other site (principal); M50.30 Other cervical disc degeneration, unspecified cervical region
CPT/HCPCS: 72040; 72070

== ENCOUNTER → 2021-10-26 10:42 | Outpatient (CLI) | payer MEDICARE, SELFPAY ==
--- NOTE | ~2021-10-26 | MR_ITS ---
EXAMINATION: MR cervical spine wo con DATE: 10/26/2021 11:12 INDICATION: Cervicalgia TECHNIQUE: Magnetic resonance imaging (MRI) of the cervical spine was performed without intravenous c ontrast. Sequences included sagittal T2-weighted FSE, sagittal T2-weighted FS FSE, sagittal T1-weight ed FSE, axial MERGE and axial T2-weighted FSE. COMPARISON: Cervical spine radiographs dated 10/06/2021 FINDINGS: 2 mm anterolisthesis C6 on C7 and 1-2 mm anterolisthesis T1 on T2. Vertebral body heights are normal . Marrow edema likely related to prominent cervical facet osteoarthritis at multiple levels in the mi d to lower cervical spine which will be further detailed below. Marrow signal is otherwise normal mil d disc height loss at C3-C4 through C6-7 and at T2-3. Mild to moderate disc height loss at T3-T4 and T4-T5. There is mild associated central disc protrusion with only minimal central canal stenosis at T 3-T4 and more prominent central disc extrusion at T4-T5 resulting in mild central canal stenosis. Cor d signal intensity is normal. Cervical soft tissues are unremarkable. The following disc levels are s pecifically discussed: C2-C3: The disc does not extend beyond the endplate margin. There is no uncovertebral joint osteoarth ritis. The bilateral facet joints are fused. There is no neural foraminal stenosis. There is no centr al canal stenosis. C3-C4: Disc is bulging, eccentric to the left. There is mild right and moderate left uncovertebral noy int osteoarthritis. There is moderate to severe right and severe left facet joint osteoarthritis. The re is mild right and moderate left neural foraminal stenosis. There is mild central canal stenosis. C4-C5: Disc is bulging. There is mild bilateral uncovertebral joint osteoarthritis. There is severe b ilateral facet joint osteoarthritis. There is mild left and mild to moderate right neural foraminal s tenosis. There is mild central canal stenosis. C5-C6: Disc is bulging with superimposed annular fissure and small central disc extrusion with disc m aterial extending up to 3 to 4 mm cephalad to the level of the inferior endplate of C5. There is mild bilateral uncovertebral joint osteoarthritis. There is severe bilateral facet joint osteoarthritis. There is mild left and moderate right neural foraminal stenosis. There is mild central canal stenosis . C6-C7: Disc is mildly bulging with superimposed annular fissure and small central disc extrusion with disc material extending up to 3 mm cephalad to the level of the inferior endplate of C6. There is mi ld bilateral uncovertebral joint osteoarthritis. There is severe right and moderate left facet joint osteoarthritis. There is mild bilateral neural foraminal stenosis with moderate extra foraminal steno sis on the right. There is mild central canal stenosis. C7-T1: Disc is minimally bulging. There is mild bilateral uncovertebral joint osteoarthritis. There i s mild to moderate bilateral facet joint osteoarthritis. There is no neural foraminal stenosis. There is no central canal stenosis. IMPRESSION: 1. Cervical spondylosis with multilevel mild degenerative disc disease and multilevel severe bilatera l facet osteoarthritis. Reviewed, dictated and finalized at location A. IMPRESSION: 1. Cervical spondylosis with multilevel mild degenerative disc disease and mult ilevel severe bilateral facet osteoarthritis.
== END ==
PROVIDERS: PCP Family Medicine; Visit Provider Nurse Practitioner Family
DX: M47.892 Other spondylosis, cervical region (principal); M50.30 Other cervical disc degeneration, unspecified cervical region
CPT/HCPCS: 72141

== ENCOUNTER 2022-01-16 12:46 | Outpatient (CLI) | payer MEDICARE, SELFPAY ==
--- NOTE | ~2022-01-16 | US_ITS ---
EXAMINATION: US venous doppler [facility] DATE: 01/16/2022 13:36 INDICATION: Bilateral lower limb edema TECHNIQUE: Rodriguez scale images without and with compression and Doppler images of the bilateral lower e xtremity veins were obtained. COMPARISON: None FINDINGS: The right common femoral vein, profunda femoral vein, femoral vein, popliteal vein, peroneal trunk, p osterior tibial veins, and greater saphenous vein are patent. The left common femoral vein, profunda femoral vein, femoral vein, popliteal vein, peroneal trunk, po sterior tibial veins, and greater saphenous vein are patent. IMPRESSION: 1. Patent bilateral lower extremity veins. No evidence of deep venous thrombosis. Reviewed, dictated and finalized at location A. IMPRESSION: 1. Patent bilateral lower extremity veins. No evidence of deep venous thrombosi s.
== END 2022-01-16 12:47 | disposition home or self-care (01) ==
PROVIDERS: PCP Family Medicine; Visit Provider Family Medicine
DX: R60.0 Localized edema (principal)
CPT/HCPCS: 93970

== ENCOUNTER 2022-05-22 09:13 | Outpatient (CLI) | payer MEDICARE, SELFPAY ==
--- NOTE | ~2022-05-22 | MM_ITS ---
EXAMINATION: MM screening jaqueline BI w canelo HISTORY: Screening TECHNIQUE: Craniocaudal and mediolateral oblique 3-D tomosynthesis images were obtained and synthetic 2-D images were generated. CAD analysis was submitted and interpreted. COMPARISON: Comparison to multiple prior studies sequentially, with oldest reviewed study dated 01/20. BREAST PARENCHYMAL COMPOSITION: The breasts are extremely dense, which lowers the sensitivity of mamm ography FINDINGS: Stable benign-appearing breast calcifications. There is no evidence of suspicious mass, gabriella cification, or architectural distortion to suggest malignancy in either breast. There has been no jere picious interval change. IMPRESSION: 1. No mammographic evidence of malignancy. 2. Recommend routine screening mammography in one year. BI-RADS Category 2: Benign finding(s). Reviewed, dictated and finalized at location A. MACY AIDE
== END 2022-05-22 09:14 | disposition home or self-care (01) ==
PROVIDERS: PCP Family Medicine; Visit Provider Obstetrics & Gynecology Gynecology
DX: Z12.31 Encounter for screening mammogram for malignant neoplasm of breast (principal)
CPT/HCPCS: 77063; 77067

== ENCOUNTER 2022-06-01 15:06 | Outpatient (CLI) | payer MEDICARE, SELFPAY ==
--- NOTE | ~2022-06-01 | CT_ITS ---
EXAMINATION: CT cervical spine wo con DATE: 06/01/2022 15:35 INDICATION: Foraminal stenosis of cervical region. TECHNIQUE: Computed tomography (CT) of the cervical spine was performed without intravenous contrast. Automated exposure control and iterative reconstruction technique were employed. The dose-length pro duct was 99.10 mGy-cm. COMPARISON: Cervical spine radiograph 10/06/2021 FINDINGS: There is mild scarring at the lung apices. There is 5 degrees levocurvature of cervical spi ne. There is 2 mm anterolisthesis of C4 on C5, C5 on C6, C6 on C7, and T1 on T2. Vertebral body heigh ts are normal. There is interbody fusion at C2-C3. There is mildly decreased disc height at C6-C7, T1 -T2, and T2-T3. The following disc levels are specifically discussed: C2-C3: There is no uncovertebral joint hypertrophy. There is ankylosis of the facet joints with mild hypertrophy. There is no neural foraminal stenosis. There is no central canal stenosis. C3-C4: There is mild right and severe left uncovertebral joint osteoarthritis. There is severe bilate ral facet joint osteoarthritis. There is moderate left neural foraminal stenosis. There is no central canal stenosis. C4-C5: There is mild bilateral uncovertebral joint osteoarthritis. There is severe bilateral facet noy int osteoarthritis. There is mild bilateral neural foraminal stenosis. There is no central canal sten osis. C5-C6: There is mild bilateral uncovertebral joint osteoarthritis. There is severe bilateral facet noy int osteoarthritis. There is mild bilateral neural foraminal stenosis. There is mild central canal st enosis. C6-C7: There is no uncovertebral joint osteoarthritis. There is severe bilateral facet joint osteoart hritis. There is moderate right and mild left neural foraminal stenosis. There is mild central canal stenosis. C7-T1: There is no uncovertebral joint osteoarthritis. There is severe bilateral facet joint osteoart hritis. There is no neural foraminal stenosis. There is no central canal stenosis. T1-T2: There is severe bilateral facet joint osteoarthritis. There is mild right and severe left neur al foraminal stenosis. There is no central canal stenosis. IMPRESSION: 1. Moderate cervical spondylosis. Reviewed, dictated and finalized at location A. T METAL FABRICATOR
--- NOTE | ~2022-06-01 | XR_ITS ---
EXAMINATION: XR_CERV2-3V_CR DATE: 06/01/2022 15:39 INDICATION: Foraminal stenosis of cervical region. TECHNIQUE: Flexion and extension views of cervical spine were obtained. COMPARISON: Cervical spine radiographs 10/06/2021, CT cervical spine 06/01/2022 FINDINGS: There is 2 mm anterolisthesis of C6 on C7. Vertebral body heights are normal. There is mild ly decreased disc height at C6-C7. There is no abnormal motion with flexion or extension. There is mu ltilevel severe facet joint osteoarthritis. No central canal stenosis or prevertebral soft tissue swe lling. IMPRESSION: 1. Moderate cervical spondylosis. Reviewed, dictated and finalized at location A. OSIVE OPERATOR BOMB
== END 2022-06-01 15:07 | disposition home or self-care (01) ==
PROVIDERS: PCP Family Medicine; Visit Provider Neurological Surgery
DX: M48.02 Spinal stenosis, cervical region (principal); M47.892 Other spondylosis, cervical region
CPT/HCPCS: 72040; 72125

== ENCOUNTER 2023-04-20 08:12 | Emergency (ER) | payer MEDICARE, SELFPAY ==
[2023-04-20 08:24] VITALS: BP 159/82; PULSE 94; RESP 18; TEMP 36.4; O2SAT 97
--- NOTE | 2023-04-20 08:39 | ED.URI ---
HPI - URI/Sore Throat General Chief Complaint: Upper Respiratory Infection Stated Complaint: Sore Throat/Ears Irritation Time Seen by Provider: 04/20/23 08:27 Source: patient and RN notes reviewed Mode of arrival: ambulatory Limitations: no limitations History of Present Illness HPI Narrative: Presents today with a total day history of nasal congestion, sore throat,, sinus pressure, postnasal drainage. She currently rates it VIII/10 and has been taking Claritin without relief. Denies fever, cough. She took a home COVID test yesterday that was negative. Related Data Home Medications Medication Instructions Recorded Confirmed amlodipine 5 mg tablet 5 mg PO DAILY 05/25/20 04/20/23 aspirin 325 mg tablet 325 mg PO HS 05/25/20 04/20/23 atorvastatin 20 mg tablet 20 mg PO HS 05/25/20 04/20/23 levothyroxine 25 mcg tablet 25 mcg PO DAILY 05/25/20 04/20/23 lisinopril 40 mg tablet 40 mg PO DAILY 05/25/20 04/20/23 polysorbate 80-glycerin 1 %-1 % 1 drp ophthalmic (eye) BID PRN Dry 05/25/20 04/20/23 eye drops Eye(S) ergocalciferol (vitamin D2) 1,250 See Rx Instructions .Route .COMPLEX 04/20/23 04/20/23 mcg (50,000 unit) capsule levetiracetam 500 mg tablet 500 mg PO BID 04/20/23 04/20/23 Allergies Allergy/AdvReac Type Severity Reaction Status Date / Time No Known Allergies Allergy Verified 04/20/23 08:14 Review of Systems Review of Systems: CONSTITUTIONAL: Denies body aches, fever, chills, or sweats. EYES: Denies visual changes, redness, or discharge. ENT: Denies rhinorrhea, or otalgia.+ congestion, sinus pressure, sore throat, postnasal drip CARDIOVASCULAR: Denies chest pain, palpitations, or edema. RESPIRATORY: Denies cough or dyspnea. GASTROINTESTINAL: Denies abdominal pain, nausea, vomiting, or diarrhea. GENITOURINARY: Denies dysuria or hematuria. SKIN: Denies rash, itching, or wounds. MUSCULOSKELETAL: Denies back pain, joint pain, or myalgia. NEUROLOGIC: Denies numbness, tingling, or weakness.+ headache PSYCH: Denies depression or anxiety. [facility] Past Medical History Medical History Graves disease History of TIA (transient ischemic attack) HTN (hypertension) with goal to be determined Hyperlipidemia Hypertension Surgical History Surgical History H/O: hysterectomy Family History Family History Mother Diabetes mellitus Father Acute myocardial infarction Social History Social History Social History: The patient lives with her Fahad and he is the durable power assistant prosecuting attorney for healthcare. The patient is a full code. The patient has 3 children. 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 Rarely drinks alcohol and does not use marijuana or any illicit drugs. Smoking status: Never smoker Alcohol intake: former Alcohol use details: rarely Substance use: never Gender identity (if verbalized by the patient): Female Spiritual care concerns: No Comments At time of signature, I have reviewed and agree with nursing past medical, surgical, social and family history unless otherwise noted. Please see nursing chart for further information. There is no relevant family history pertinent to the presenting complaint Exam Narrative: GENERAL: Well-appearing, well-nourished, and in no acute distress. HEAD: Normocephalic, atraumatic. EYES: EOMI. No redness or drainage. Conjunctivae normal. ENT: Mucous membranes pink and tacky. Nares congested. No rhinorrhea. TMs normal bilaterally. Throat normal. Uvula midline. NECK: Normal AROM. Supple. No lymphadenopathy. CHEST: No respiratory distress. Clear to auscultation. HEART: Regular rate and rhythm. No murmur appreciated. EXTREMITIES: Normal range of motion. No edema. SKIN: Warm, dry,
== END 2023-04-20 08:44 | disposition home or self-care (01) ==
PROVIDERS: Emergency Provider Nurse Practitioner; PCP Family Medicine
DX: J01.90 Acute sinusitis, unspecified (principal); E05.00 Thyrotoxicosis with diffuse goiter without thyrotoxic crisis or storm; I10 Essential (primary) hypertension; E78.5 Hyperlipidemia, unspecified; Z86.73 Personal history of transient ischemic attack (TIA), and cerebral infarction without residual deficits
CPT/HCPCS: 99213; G0463

== ENCOUNTER 2023-07-16 15:04 | Outpatient (CLI) | payer MEDICARE, SELFPAY ==
--- NOTE | ~2023-07-16 | MM_ITS ---
EXAMINATION: MM screening jaqueline BI w canelo HISTORY: Screening mammogram TECHNIQUE: Craniocaudal and mediolateral oblique 3-D tomosynthesis images were obtained and synthetic 2-D images were generated. CAD analysis was submitted and interpreted. COMPARISON: 05/22/2022, 03/22/2021 bilateral screening mammogram examinations BREAST PARENCHYMAL COMPOSITION: The breasts are heterogeneously dense, which may obscure small masses . FINDINGS: Biopsy marker on the right; history of prior benign right breast biopsy. Scattered bilateral benign calcified microhematomas. There is no evidence of suspicious mass, calcifi cation, or architectural distortion to suggest malignancy in either breast. There has been no suspici ous interval change. IMPRESSION: 1. No mammographic evidence of malignancy. 2. Recommend routine screening mammography in one year. BI-RADS Category 2: Benign finding(s). Reviewed, dictated and finalized at location A.
== END 2023-07-16 15:05 | disposition home or self-care (01) ==
PROVIDERS: PCP Family Medicine; Visit Provider Obstetrics & Gynecology Gynecology
DX: Z12.31 Encounter for screening mammogram for malignant neoplasm of breast (principal)
CPT/HCPCS: 77063; 77067

== ENCOUNTER 2023-11-14 09:04 | Outpatient (CLI) | payer MEDICARE, SELFPAY ==
--- NOTE | ~2023-11-14 | XR_ITS ---
[id number] Ordering provider: Mitzi Acosta, DRAMA CRITIC-C History: . no recent injury left side neck pain . Comparison: June 01, 2022 FINDINGS: VERTEBRAL BODIES: Normal height and alignment. No visible fracture or subluxation. The dens is intact . DISK SPACES: Well maintained. Multilevel facet joint disease. Multilevel uncovertebral joint osteoarthritic changes. PARASPINOUS SOFT TISSUES: No prevertebral soft tissue swelling. IMPRESSION: No acute osseous abnormality cervical spine. Reviewed, dictated and finalized at location A.
== END 2023-11-14 09:05 ==
PROVIDERS: PCP Nurse Practitioner Family; Visit Provider Nurse Practitioner Family
DX: M54.12 Radiculopathy, cervical region (principal); M54.6 Pain in thoracic spine
CPT/HCPCS: 72040

== ENCOUNTER 2023-11-19 11:46 | Outpatient (CLI) | payer MEDICARE, SELFPAY ==
--- NOTE | ~2023-11-19 | MR_ITS ---
MRI of the cervical spine Clinical History: Radiculopathy Technique: Axial T2-weighted and gradient images, and sagittal T1-weighted, T2-weighted, and STIR halle ges were acquired. COMPARISON: 10/26/2021 Findings: No fracture and 5. Osseous alignment is stable from prior exam. Stable grade 1 anterolisthe sis of C6 over C7. No suspicious bone marrow signal abnormality seen. At C2-C3, there is no disc bulge or herniation. No spinal canal stenosis, cord compression, or neural foraminal narrowing. At C3-C4, there is no significant disc bulge or herniation. No spinal canal stenosis, cord compressio n, or right neural foraminal narrowing. There is left neural foraminal narrowing with mild left facet arthropathy. At C4-C5, there is no significant disc bulge or herniation. No spinal canal stenosis or cord compress ion. There is bilateral facet arthropathy with probable mild bilateral neural foraminal narrowing. At C5-C6, there is mild disc osteophyte complex, but no canal stenosis or cord compression. There is bilateral facet arthropathy, left worse than right, with bilateral neural foraminal narrowing, left w orse than right. At C6-C7, there is disc osteophyte complex, without canal stenosis or cord compression. There is righ t neural foraminal narrowing with right facet arthropathy. Left neural foramen preserved. Paravertebral soft tissues are unremarkable. No abnormal signal seen in the spinal cord. Impression: [id number] degenerative spondylosis, as above. Stable grade 1 anterolisthesis of C6 over C7. Reviewed, dictated and finalized at [facility]. Impression: [id number] degenerative spondylosis, as above. Stable grade 1 anterolisthesis of C6 over C7.
== END 2023-11-19 11:47 ==
LOC: GOSHIMG 11:48
PROVIDERS: Visit Provider Nurse Practitioner Family
DX: M47.22 Other spondylosis with radiculopathy, cervical region (principal)
CPT/HCPCS: 72141

== ENCOUNTER 2024-03-09 15:40 | Outpatient (CLI) | payer MEDICARE, SELFPAY ==
--- NOTE | ~2024-03-09 | XR_ITS ---
EXAMINATION: XR hip RT min 2V DATE: 03/09/2024 15:49 INDICATION: Right hip pain. TECHNIQUE: 2 views of right hip were obtained. COMPARISON: None. FINDINGS: Alignment is normal. No fracture. There is mild right hip osteoarthritis. IMPRESSION: 1. Mild right hip osteoarthritis. Reviewed, dictated and finalized at location A. E HAND
== END 2024-03-09 15:41 | disposition home or self-care (01) ==
LOC: MICIMG 15:40
PROVIDERS: PCP Nurse Practitioner Family; Visit Provider Nurse Practitioner Family
DX: M16.11 Unilateral primary osteoarthritis, right hip (principal)
CPT/HCPCS: 73502

== ENCOUNTER 2024-04-20 16:52 | Emergency (ER) | payer MEDICARE, SELFPAY ==
--- NOTE | 2024-04-20 17:00 | ED.URI ---
HPI - URI/Sore Throat General Chief Complaint: Upper Respiratory Infection Stated Complaint: congestion Time Seen by Provider: 04/20/24 17:01 Source: patient Mode of arrival: ambulatory Limitations: no limitations History of Present Illness HPI Narrative: Óscar is a 78-year-old female patient presenting to the clinic today with complaints of sinus congestion, sinus pain, and postnasal drip x5 weeks. She reports she is coughing and blowing out brown green is nasal drainage. Denies any fever or chills. Denies any chest pain or shortness of breath. Related Data Home Medications ?Medication ?Instructions ?Recorded ?Confirmed ?Last Taken ?Type amlodipine 5 mg tablet 5 mg PO DAILY 05/25/20 04/20/23 Unknown History aspirin 325 mg tablet 325 mg PO HS 05/25/20 04/20/23 Unknown History atorvastatin 20 mg tablet 20 mg PO HS 05/25/20 04/20/23 Unknown History levothyroxine 25 mcg tablet 25 mcg PO DAILY 05/25/20 04/20/23 Unknown History lisinopril 40 mg tablet 40 mg PO DAILY 05/25/20 04/20/23 Unknown History polysorbate 80-glycerin 1 %-1 % 1 drp ophthalmic (eye) BID PRN Dry 05/25/20 04/20/23 Unknown History eye drops Eye(S) ergocalciferol (vitamin D2) 1,250 See Rx Instructions .Route .COMPLEX 04/20/23 04/20/23 Unknown History mcg (50,000 unit) capsule levetiracetam 500 mg tablet 500 mg PO BID 04/20/23 04/20/23 Unknown History Allergies Allergy/AdvReac Type Severity Reaction Status Date / Time No Known Allergies Allergy Verified 04/20/24 17:08 Review of Systems Review of Systems: Pertinent positives per HPI. Patient denies any fever, chills, rash, headache, visual changes, dizziness, cough, shortness of breath, chest pain, palpitations, nausea, vomiting, diarrhea, constipation, abdominal pain, or any urinary issues. [facility] Past Medical History Medical History HTN (hypertension) with goal to be determined Hyperlipidemia History of TIA (transient ischemic attack) Graves disease Hypertension Surgical History Surgical History H/O: hysterectomy Family History Family History Mother Diabetes mellitus Father Acute myocardial infarction Social History Social History Social History: The patient lives with her Fahad and he is the durable power family law attorney for healthcare. The patient is a full code. The patient has 3 children. 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 Rarely drinks alcohol and does not use marijuana or any illicit drugs. Smoking status: Never smoker Alcohol intake: former Alcohol use details: rarely Substance use: never Gender identity (if verbalized by the patient): Female Spiritual care concerns: No Comments At the time of my signature, I reviewed and agree with the nursing past medical, surgical, social, and family history. There is no relevant family history pertinent to the patient complaint. Exam Narrative: General: Well-developed, well nourished, in no apparent distress Head: Normocephalic, atraumatic Eyes: Pupils equally round and reactive to light bilaterally, EOM intact, sclera and conjunctive clear, no discharge, lids normal Ears: TMs intact and clear, ear canals clear, no drainage, grossly hearing normal. Nose: Nares patent, green discharge, severe inflammation, maxillary and frontal sinus tenderness. Mouth: Oral pharynx without lesions or masses, good dentition, MMM. Postnasal drip Neck: Supple, trachea midline, no enlargement of anterior or posterior cervical nodes, no thyroid masses or goiter palpable. Cardio: Regular rate and rhythm, s1 and s2 normal, no murmur appreciated. Resp: Clear to auscultation bilaterally, no rhonchi, rales, wheezing or rubs Course Course Emergency Course: Portions of this record may have been created with voice recognition software. Level of Care: Express Care Visit Vital Signs Vital signs: Vital signs reviewed MDM - URI/Sore Throat MDM Narrative Medical decision making narrative: At the time of visit patient is resting comfortably on the exam table. Patient appears to be nontoxic. Plan: I suspect patient has acute bacterial rhinosinusitis. Prescription for Augmentin and prednisone was sent to the pharmacy per Supportive measures were discussed with the patient and they voiced understanding discharge instructions and agrees to treatment plan. Return precautions reviewed Differential Diagnosis Differential diagnosis: Likely upper respiratory infection, otitis media, sinusitis, viral infection, bronchitis, influenza, pharyngitis and other (COVID) Discharge Plan Discharge Clinical Impression: Acute bacterial rhinosinusitis Patient Disposition: Home, Self-Care Condition: Stable Instructions: Antibiotic Form, Rhinosinusitis (ED) Additional Instructions: Take prescription medications only as prescribed-Augmentin and prednisone Increase fluids and stay well hydrated Tylenol/motrin for pain/fever Flonase and OTC antihistamines as directed Vicks vapor rub to open sinuses Sinus rinses for congestion Cepacol spray, cough drops, throat lozenges, warm tea with honey/lemon, gargle salt water to soothe throat BRAT diet for diarrhea Clear liquids x 24 hours then advance as tolerated for nausea/vomiting Go to the ED if you develop a worsening in your condition- high fever not controlled by Tylenol or Motrin, dehydration, weakness, lethargy, shortness of breath, or chest pain. Follow up with your PCP in 3-5 days if symptoms persist. Patient Language: Gibraltarian Prescriptions: New amoxicillin-pot clavulanate 875-125 mg tablet 1 tablet PO Q12H 10 Days Qty: 20 0RF prednisone 20 mg tablet 40 mg PO DAILY 5 Days Qty: 10 0RF No Action ergocalciferol (vitamin D2) 1,250 mcg (50,000 unit) capsule See Rx Instructions .ROUTE .COMPLEX Rx Instructions: 1,250 mcg orally twice a month levetiracetam 500 mg tablet 500 mg PO BID atorvastatin 20 mg tablet 20 mg PO HS aspirin 325 mg Tablet 325 mg PO HS amlodipine 5 mg tablet 5 mg PO DAILY levothyroxine 25 mcg tablet 25 mcg PO DAILY lisinopril 40 mg tablet 40 mg PO DAILY polysorbate 80-glycerin 1-1 % Drops 1 drp OPHTHALMIC (EYE) BID PRN (Reason: Dry Eye(S)) Follow-up/Referrals: PHYSICIAN,ELECTRONICS TEST ENGINEER [Primary Care Provider] - Time of Disposition: 17:09 Quality NIHSS Nursing Documentation ED NIHSS nursing documentation: reviewed/agree
[2024-04-20 17:04] VITALS: BP 163/84; PULSE 87; RESP 18; TEMP 36.6; O2SAT 99
== END 2024-04-20 17:13 | disposition home or self-care (01) ==
PROVIDERS: Emergency Provider Nurse Practitioner Family; Referring Provider Emergency Medicine
DX: J01.90 Acute sinusitis, unspecified (principal); I10 Essential (primary) hypertension; E78.5 Hyperlipidemia, unspecified; E05.00 Thyrotoxicosis with diffuse goiter without thyrotoxic crisis or storm; Z79.82 Long term (current) use of aspirin
CPT/HCPCS: 99213; G0463

== ENCOUNTER 2024-07-13 07:08 | Outpatient (CLI) | payer MEDICARE, SELFPAY ==
--- NOTE | ~2024-07-13 | US_ITS ---
Limited ABDOMINAL ULTRASOUND Ordering provider: Elena Christianson APRN History: . elevated liver enzymes . Comparison: The FINDINGS: LIVER: Normal size and echotexture. No focal hepatic lesions or perihepatic fluid collections are iman ntified. Portal vein flow is normal. GALLBLADDER: Unremarkable. No evidence for stones, sludge, gallbladder wall thickening or pericholecy stic fluid collections. Wall thickness is 1 mm. A negative sonographic Nguyen's sign was noted. BILIARY DUCTS: No evidence for intra or extrahepatic biliary dilation. Common bile duct measures 4.2 mm in diameter which is within normal limits. PANCREAS: Partially visualized. UPPER ABDOMINAL AORTA: Normal in caliber. IVC: Patent. FREE FLUID: None. IMPRESSION: Unremarkable limited ultrasound of the abdomen. Reviewed, dictated and finalized at location A.
--- OUTSIDE RECORDS SUMMARY | 2024-07-13 07:10 | XMS_ITS | Continuity of Care Document ---
Author Organization [facility] Address [address] [place] [address] Phone Care Team Providers Care Farmworker General Name Role Phone Doisy, Edward Unavailable Unavailable Advance Directives Directive Yes / No Effective Date File Name No Information Encounters Encounter Description Practice Location Reason(s) For Visit Diagnoses Date Provider Providers Copied on Encounter [facility], [address], [place], [place], [id number], [place] tel:[phone] [facility] No Information [address] Edward. [address] , [address], [place], [address], [place]. tel:[phone] Family History Family Member Type Diagnosis Age At Onset No Information Payers Payer name Insurance type Covered democrat ID Authoriza tion(s) No Information Social History Type Description Quantity Date Captured Comments Sex Female Smoking Status No Information Chief Complaint And Reason For Visit No Information Reason For Referral Reason For Referral No Information History Of Present Illness Encounter Date Complaint History Of Prese nt Illness No Information Functional Status Date Functional Assessmen t No Information Instructions Date Instruction Additional Infor mation No Information Assessments Type Assessment Date No Information Patient Care Teams Name Effective Dates (start - stop) Status Members No Information
--- OUTSIDE RECORDS SUMMARY | 2024-07-13 07:11 | XMS_ITS | Encounter Summary ---
Author Organization [facility] Healthcare Address [address] [place] [address] Care Team Providers Care Laborer Pipelines Name Role Phone Devora Olguin MD Primary Care Provider [phone] Encounter Details Date Type Department Care Team (Late st Contact Info) Description 07/12/2024 Results Follow-Up [facility] Medical Group Cardiology [address] [facility] [address], [place] [id number] [place] [address] [place] [address] [address] [place], [place] [id number] Social History Tobacco Use Types Packs/Day Years Used Date Smoking Tobacco: Never Smokeless Tobacco: Never Alcohol Use Standard Drinks/Week Comments Yes 0 (1 standard drink = 0.6 oz pur e alcohol) PHQ-2 Answer Date Recorded PHQ-2 Total Score (If total score is 3 or more points, staff should administer the PHQ-9) 0 10/01/2019 Comments Unknown Sex and Gender Information Value Date Recorded Sex Assigned at Not on file Legal 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
--- OUTSIDE RECORDS SUMMARY | 2024-07-13 07:11 | XMS_ITS | Referral Summary ---
Author Organization [address] Address [address] [place] [phone] Care Team Providers Care Order Desk Clerk Name Role Phone Devora Olguin MD Primary Care Provider [phone] Encounters Date Type Department Care Team Description 07/12/2024 Results Follow-Up [facility] Medical Group Cardiology [address] [place], [place] [address] [address] Ciaran George MD 07/01/2024 2:00 PM CDT Ancillary Procedure [facility] Medical [facility] Cardiology [address] [place] [address] [place] [phone] FLORES (dyspnea on exertion); Essential hypertension 05/27/2024 11:15 AM MECHANICAL MANAGER Office Visit [facility] Cardiology [address] [place] [address] [place] [phone] Ciaran George MD FLORES (dyspnea on exertion) (Primary Dx); Essential hypertension; History of CVA (cerebrovascular accident); History of syncope from Last 3 Months Allergies No known active allergies Medications lisinopril (PRINIVIL,ZESTR IL) 40 mg tablet take 1 tablet by oral route every day 0 0 03/15/2015 Active ergocalciferol (VITAMIN D) 50,000 unit capsule take 1 tab twice a month 10 3 03/25/2012 Active atorvastatin (LIPITOR) 20 mg tablet Take 1 tablet (20 mg total) by mouth daily Active Lacto.acidophil us-Bif.animalis 5 billion cell capsule, sprinkle Take by mouth. Active cholecalciferol (VITAMIN D-3) 2,000 unit capsule 1 capsule (2,000 Units total) Active levothyroxine (Synthroid) 25 mcg tablet Take 1 tablet (25 mcg total) by mouth daily 90 tablet 3 10/06/2019 Active levETIRAcetam (KEPPRA) 500 mg tablet Take 1 tablet (500 mg total) by mouth 2 (two) times a day Active aspirin 81 mg enteric coated tablet Take 1 tablet (81 mg total) by mouth daily 30 tablet 11 08/29/2022 Active amLODIPine (NORVASC) 10 mg tablet TAKE 1 TABLET BY MOUTH DAILY 100 tablet 2 12/30/2023 Active Active Problems Problem Noted Date Diagnosed Date Syncope and collapse 12/12/2020 Assessment & Plan (12/12/2020 2:57 PM CDT): Patient has had 4 episodes of syncope and/or near-syncope. Echocardiography and extended Holter monitoring have been unrevealing to date. In addition CT imaging of the brain, MRI, and EEG have been unrevealing. Based on clinical description of events, her recurrent syncope is doubtful for seizure. With the MRI an EEG being normal save for an incidental lacune in the [place], I do not have any reason to believe these episodes were seizure. I have suggested if she would have additional episode she may wish to consider pursuing a tilt-table test to exclude autonomic insufficiency as a explanation. She will follow-up in neurology clinic on an as-needed basis. Hypothyroidism 09/05/2013 Overview (07/25/2016): HYPOTHYROIDISM NOS Assessment & Plan (10/01/2019 10:14 AM CDT): Will check TSH and free T4 Will adjust dose of Levothyroxine accordingly . If there is a need to make changes, will recheck levels in 2-3 months. Instructions to patient on taking medication properly : in the morning, on an empty stomach , 1 h part from food and/or other meds. If any doses are missed, can take 2-3 tab together ,to make up for the missed dose; make sure at the end to the week, 7 tabs have been taken. Samples provided Will send 90 day rx when results. Assessment & Plan (03/11/2018 9:44 AM MECHANICAL MANAGER): Will check TSH and free T4 Will adjust dose of Levothyroxine accordingly . If there is a need to make changes, will recheck levels in 2-3 months. Instructions to patient on taking medication properly : in the morning, on an empty stomach , 1 h part from food and/or other meds. If any doses are missed, can take 2-3 tab together ,to make up for the missed dose; make sure at the end to the week, 7 tabs have been taken. Send rx Assessment & Plan (03/05/2017 9:39 AM MECHANICAL MANAGER): Check TSH, free T4 Adjust dose of Levothyroxine accordingly . 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 Social History Tobacco Use Types Packs/Day Years [...] on file Legal Sex Female 10:53 AM MECHANICAL MANAGER Gender Identity Not on file Sexual Orientation Not on file Last Filed Vital Signs Vital Sign Reading Time Taken Comments Blood Pressure 134/70 05/27/2024 11:19 AM MECHANICAL MANAGER Pulse 100 05/27/2024 11:19 AM MECHANICAL MANAGER Temperature 36.6 C (97.8 F) 12/12/2020 2:00 PM CDT Respiratory Rate 12 10/01/2019 9:46 AM CDT Oxygen Saturation 98% 05/27/2024 11:19 AM MECHANICAL MANAGER Inhaled Oxygen Concentration - - Weight 56.2 kg (124 lb) 05/27/2024 11:19 AM MECHANICAL MANAGER Height 162.6 cm (5' 4 ) 05/27/2024 11:19 AM MECHANICAL MANAGER Body Mass Index 21.28 05/27/2024 11:19 AM MECHANICAL MANAGER Plan of Treatment Not on file Procedures Procedure Name Priority Date/Time Associated Diagnosis Comments TRANSTHORACIC ECHO (TTE) COMPLETE W DOPPLER/CF WO CONTRAST Routine 07/01/2024 2:18 PM CDT FLORES (dyspnea on exertion) Essential hypertension from Last 3 Months Results * TRANSTHORACIC ECHO (TTE) COMPLETE W DOPPLER/CF WO CONTRAST (07/01/2024 2:18 PM CDT) Anatomical Region Laterality Modality Ultrasound 07/01/2024 1:55 PM CDT Narrative 07/01/2024 2:44 PM CDT [facility] Medical Group Cardiology [address] [facility] [address], [place] [address] [address] [facility] [address], [place] [address] P:[phone] P:[phone] Echocardiographic Report Patient Name: ÓSCAR PAK S : 1945 Study Date: 07/01/2024 1:55:56 PM Gender: F Tech: Location: [facility] Provider: CIARAN GEORGE Height(Cm): 163 BSA: 1.6 Weight(Kg): 56.2 Heart Rate: 87 BP: 134 / 70 Quality: Good Order Provider: CIARAN GEORGE PROCEDURES: Echocardiographic Report: Transthoracic echocardiogram with complete 2D, M-Mode, and color Doppler examination. With Strain Analysis. INDICATIONS: Dyspnea on Exertion and I10 Essential (primary) hypertension. MEASUREMENTS: 2D/MM Value Range Doppler Value Range EF Mod BP 64 % [ 54 - 74 ] NELLIE Vmax 2.00 cm2 [ 2.00 - 4.00 ] EF Teich MM 76 % [ 54 - 74 ] AV Mean PG 5 mmHg LVIDd 2D 4.11 cm [ 3.80 - 5.20 ] AV Peak Taran 1.46 m/s [ 1.00 - 1.70 ] LVIDd MM 3.71 cm [ 3.80 - 5.20 ] AV Peak PG 9 mmHg LVIDs 2D 2.41 cm [ 2.20 - 3.50 ] AV VTI 28.98 cm LVIDs MM 2.07 cm [ 2.20 - 3.50 ] LVOT Diam 2.13 cm [ 1.70 - 2.10 ] LVPWd 2D 1.07 cm [ 0.60 - 0.90 ] LVOT Peak Taran 0.82 m/s [ 0.70 - 1.10 ] LVPWd MM 1.24 cm [ 0.60 - 0.90 ] LVOT VTI 17.86 cm IVSd 2D 1.08 cm [ 0.60 - 0.90 ] MV E Peak Taran 0.93 m/s [ 0.60 - 1.30 ] IVSd MM 1.34 cm [ 0.60 - 0.90 ] MV A Peak Taran 1.36 m/s [ 1.00 - 1.20 ] LA Dimension MM 3.46 cm [ 2.70 - 3.80 ] MV Mean PG 5 mmHg [ 0 - 5 ] AoR Diam MM 3.25 cm [ 2.70 - 3.70 ] MV PHT 47 msec [ 20 - 100 ] LA Volume Index 26 cc/m2 [ 16 - 34 ] MVA PHT 4.67 cm2 [ 2.00 - 4.00 ] ACS MM 1.84 cm MV Decel Time 152 msec [ 104 - 258 ] PV Peak Taran 0.89 m/s [ 0.40 - 0.80 ] TR Peak Taran 2.54 m/s [ 1.00 - 2.80 ] TR Peak PG 26 mmHg RVSP 34.00 mmHg [ 10.00 - 36.00 ] Lateral E` 0.08 m/s [ 0.10 - 0.15 ] E` 0.06 m/s E/E` 12 2D/MM Value Range Doppler Value Range - FINDINGS: Interpretation Site: Exam was interpreted at [facility]. Left Ventricle: Normal left ventricular size. Mild concentric left ventricular hypertrophy. Normal global left ventricular systolic function. Impaired diastolic relaxation Grade I. Ejection fraction is measured at 64 %. Global Longitudinal Strain is -16 %. Right Ventricle: Normal right ventricular size. Normal right ventricular systolic function. Left Atrium: The left atrium is normal in size. Right Atrium: The right atrium is normal in size. Atrial Septum: Normal atrial septum. Mitral Valve: Mild mitral annular calcification. Trivial regurgitation of the mitral valve. Aortic Valve: Normal appearance of the aortic valve. No evidence of hemodynamically significant aortic stenosis by Doppler. Tricuspid Valve: Normal appearance of the tricuspid valve. Estimated peak RVSP is 34 mmHg. Mild tricuspid regurgitation. Pulmonic Valve: Normal appearance of the pulmonic valve. Mild pulmonic regurgitation. Pericardium: Trivial to small pericardial effusion, predominantly along RA wall. No echocardiographic evidence to suggest pericardial tamponade. Aorta: Normal aortic root. IVC: Normal size and normal respiratory collapse consistent with normal right atrial pressure (<5 mmHg). CONCLUSIONS: Normal left ventricular size. Mild left ventricular hypertrophy. Normal global left ventricular systolic function. Impaired diastolic relaxation Grade I. Ejection fraction is measured at 64 %. Global Longitudinal Strain is -16 %. Normal RV size and systolic function. Mild mitral annular calcification. Trivial MR. Normal appearance of the aortic valve. No evidence of hemodynamically significant aortic stenosis by Doppler. Estimated RVSP 34 mmHg. Mild tricuspid and pulmonic regurgitation. Trivial to small pericardial effusion, predominantly along RA wall. No echocardiographic evidence to suggest pericardial tamponade. Electronically Signed By: Ciaran George MD, [facility] 07/01/2024 2:43:17 PM CDT Procedure Note Ciaran George MD - 07/01/2024 [facility] Medical Group Cardiology [address] [facility] [address], [place] [address] [address] [facility] [address] [place] [address] P:[phone] P:[phone] Echocardiographic Report Patient Name: ÓSCAR PAK S : 1945 Study Date: 07/01/2024 1:55:56 PM Gender: F Tech: Location: [place] Ref Provider: CIARAN GEORGE Height(Cm): 163 BSA: 1.6 Weight(Kg): 56.2 Heart Rate: 87 BP: 134 / 70 Quality: Good Order Provider: KOUL,CIARAN PROCEDURES: Echocardiographic Report: Transthoracic echocardiogram with complete 2D, M-Mode, and color Dopplerexamination. With Strain Analysis. INDICATIONS: Dyspnea on Exertion and I10 Essential (primary) hypertension. MEASUREMENTS: 2D/MM Value Range Doppler ValueRange EF Mod BP 64 % [ 54 - 74 ] NELLIE Vmax 2.00cm2 [ 2.00 - 4.00 ] EF Teich MM 76 % [ 54 - 74 ] AV Mean PG 5mmHg LVIDd 2D 4.11 cm [ 3.80 - 5.20 ] AV Peak Taran 1.46m/s [ 1.00 - 1.70 ] LVIDd MM 3.71 cm [ 3.80 - 5.20 ] AV Peak PG 9mmHg LVIDs 2D 2.41 cm [ 2.20 - 3.50 ] AV VTI 28.98cm LVIDs MM 2.07 cm [ 2.20 - 3.50 ] LVOT Diam 2.13 cm[ 1.70 - 2.10 ] LVPWd 2D 1.07 cm [ 0.60 - 0.90 ] LVOT Peak Taran 0.82m/s [ 0.70 - 1.10 ] LVPWd MM 1.24 cm [ 0.60 - 0.90 ] LVOT VTI 17.86cm IVSd 2D 1.08 cm [ 0.60 - 0.90 ] MV E Peak Taran 0.93m/s [ 0.60 - 1.30 ] IVSd MM 1.34 cm [ 0.60 - 0.90 ] MV A Peak Taran 1.36m/s [ 1.00 - 1.20 ] LA Dimension MM 3.46 cm [ 2.70 - 3.80 ] MV Mean PG 5 mmHg[ 0 - 5 ] AoR Diam MM 3.25 cm [ 2.70 - 3.70 ] MV PHT 47 msec[ 20 - 100 ] LA Volume Index 26 cc/m2 [ 16 - 34 ] MVA PHT 4.67cm2 [ 2.00 - 4.00 ] ACS MM 1.84 cm MV Decel Time 152msec [ 104 - 258 ] PV Peak Taran 0.89 m/s [ 0.40 - 0.80 ] TR Peak Taran 2.54 m/s [ 1.00 - 2.80 ] TR Peak PG 26 mmHg RVSP 34.00 mmHg [ 10.00 - 36.00 ] Lateral E` 0.08 m/s [ 0.10 - 0.15 ] E` 0.06 m/s E/E` 12 2D/MM Value Range Doppler ValueRange - FINDINGS: Interpretation Site: Exam was interpreted at [facility]. Left Ventricle: Normal left ventricular size. Mild concentric left ventricularhypertrophy. Normal global left ventricular systolic function. Impaired diastolic relaxation Grade I.Ejection fraction is measured at 64 %. Global Longitudinal Strain is -16 %. Right Ventricle: Normal right ventricular size. Normal right ventricular systolicfunction. Left Atrium: The left atrium is normal in size. Right Atrium: The right atrium is normal in size. Atrial Septum: Normal atrial septum. Mitral Valve: Mild mitral annular calcification. Trivial regurgitation of the mitralvalve. Aortic Valve: Normal appearance of the aortic valve. No evidence of hemodynamicallysignificant aortic stenosis by Doppler. Tricuspid Valve: Normal appearance of the tricuspid valve. Estimated peak RVSP is 34 mmHg.Mild tricuspid regurgitation. Pulmonic Valve: Normal appearance of the pulmonic valve. Mild pulmonic regurgitation. Pericardium: Trivial to small pericardial effusion, predominantly along RA wall. Noechocardiographic evidence to suggest pericardial tamponade. Aorta: Normal aortic root. IVC: Normal size and normal respiratory collapse consistent with normal rightatrial pressure (<5 mmHg). CONCLUSIONS: Normal left ventricular size. Mild left ventricular hypertrophy. Normalglobal left ventricular systolic function. Impaired diastolic relaxation Grade I.Ejection fraction is measured at 64 %. Global Longitudinal Strain is -16 %. Normal RV size and systolic function. Mild mitral annular calcification. Trivial MR. Normal appearance of the aortic valve. No evidence of hemodynamicallysignificant aortic stenosis by Doppler. Estimated RVSP 34 mmHg. Mild tricuspid and pulmonic regurgitation. Trivial to small pericardial effusion, predominantly along RA wall. Noechocardiographic evidence to suggest pericardial tamponade. Electronically Signed By: Ciaran George MD, [facility] 07/01/2024 2:43:17 PM CDT Ciaran George MD CV ECHO PROCEDURES Final Result from Last 3 Months Insurance [facility] UHC MEDICARE ADVANTAGE [place] [address] [facility] MEDICARE ADVANTAGE Care Teams Order Desk Clerk Relationship Specialty Start Date End Date Devora Olguin MD [address] [place] [address] PCP - General Family Medicine 05/27/24
--- OUTSIDE RECORDS SUMMARY | 2024-07-13 07:11 | XMS_ITS | Clinical Summary ---
Author Organization [address] Address [address] [place] [phone] Care Team Providers Care Acquisitions Assistant Name Role Phone Devora Olguin MD Primary Care Provider [phone] Allergies No known active allergies Medications lisinopril [...] results. Assessment & Plan (03/11/2018 9:44 AM SAUSAGE SMOKER): Will check TSH and free T4 Will [...] rx Assessment & Plan (03/05/2017 9:39 AM SAUSAGE SMOKER): Check TSH, free T4 Adjust dose of Levothyroxine accordingly . 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 Encounters Date Type Department Care Team Description 07/12/2024 Results Follow-Up [facility] Medical Group Cardiology [address] [facility] [address] [place] [phone] Ciaran George MD 07/01/2024 2:00 PM CDT Ancillary Procedure [facility] Cardiology [address] [facility] [address] [place] [phone] FLORES (dyspnea on exertion); Essential hypertension 05/27/2024 11:15 AM SAUSAGE SMOKER Office Visit [facility] Cardiology [address] [place] [address] [address] [place] [phone] Ciaran George MD FLORES (dyspnea on exertion) (Primary Dx); Essential hypertension; History of CVA (cerebrovascular accident); History of syncope from Last 3 Months Surgical History Surgery Date Site/Laterality Comments HYSTERECTOMY 04/22/1989 - 04/21/1990 EYE SURGERY TONSILLECTOMY/ADENOIDECTOMY BREAST BIOPSY 01/01/2014 Right BREAST BIOPSY 01/01/2014 Right Medical History Medical History Date Comments Disorder of thyroid Thyroid dise ase Osteoporosis osteoporosis Hypertension History of TIA (transient ischemic attack) Cancer (HCC) High cholesterol Family History Medical History Relation Name Comments Arthritis Brother Fortino Heart attack Father Tanisha Diabetes Mother Heidy Hypertension Mother Heidy Diabetes type II Other Family hist ory of Diabetes -Type II; Arthritis Sister Simona Relation Name Status Comments Brother Fortino Alive Father Tanisha (Age 73) Mother Heidy (Age 89) Other Sister Simona Alive Social History Tobacco Use Types Packs/Day Years [...] on file Legal Sex Female 10:53 AM SAUSAGE SMOKER Gender Identity Not on file Sexual Orientation Not on file Obstetrics History Last Filed Vital Signs Vital Sign Reading Time Taken Comments Blood Pressure 134/70 05/27/2024 11:19 AM SAUSAGE SMOKER Pulse 100 05/27/2024 11:19 AM SAUSAGE SMOKER Temperature 36.6 C (97.8 F) 12/12/2020 2:00 PM CDT Respiratory Rate 12 10/01/2019 9:46 AM CDT Oxygen Saturation 98% 05/27/2024 11:19 AM SAUSAGE SMOKER Inhaled Oxygen Concentration - - Weight 56.2 kg (124 lb) 05/27/2024 11:19 AM SAUSAGE SMOKER Height 162.6 cm (5' 4 ) 05/27/2024 11:19 AM SAUSAGE SMOKER Body Mass Index 21.28 05/27/2024 11:19 AM SAUSAGE SMOKER Plan of Treatment Health Maintenance Due Date Last Done Comments Fall Risk Assessment 1945 Hepatitis C Screening 1945 Osteoporosis Screening-Bone Density Scan 1945 DTaP/Tdap/Td Vaccine (1 - Tdap) 1957 Hepatitis B Screening 1964 Well Visit 65+ 08/23/2011 Depression Screening 09/30/2020 10/01/2019, 03/05/20 17 Influenza Vaccine (#1) 2023 9, 02/05/2018, 01/17/2017, Additional history exists Pneumococcal vaccine 65+ Completed 07/18/2016, 06/20 Zoster Vaccine Completed 01/23/2019, 05/2018, 04/22/2011 Breast Cancer Screening-Mammogram Discontinued 07/16/2023, 12/17/2013, 10/10/2012, Additional history exists Procedures Procedure Name Priority Date/Time Associated Diagnosis Comments TRANSTHORACIC ECHO (TTE) COMPLETE W DOPPLER/CF WO CONTRAST Routine 07/01/2024 2:18 PM CDT FLORES (dyspnea on exertion) Essential hypertension from Last 3 Months Results * TRANSTHORACIC ECHO (TTE) COMPLETE W DOPPLER/CF WO CONTRAST (07/01/2024 2:18 PM CDT) Anatomical Region Laterality Modality Ultrasound 07/01/2024 1:55 PM CDT Narrative 07/01/2024 2:44 PM CDT [facility] Medical Group Cardiology [address], [place] [address] [address] [facility] [address], [place] [address] P:[phone] P:[phone] Echocardiographic Report Patient Name: ÓSCAR PAK S : 1945 Study Date: 07/01/2024 1:55:56 PM Gender: F Tech: Location: [facility] Provider: CIARAN GEORGE Height(Cm): 163 BSA: [...] FINDINGS: Interpretation Site: Exam was interpreted at [facility]. Left Ventricle: Normal left ventricular size. Mild [...] tamponade. Electronically Signed By: Ciaran George MD, [facility] 07/01/2024 2:43:17 PM CDT Procedure Note Ciaran George MD - 07/01/2024 [facility] Medical Group Cardiology [address] [facility] [address] [address] [address] [facility] [address] [place], [place] [address] P:[phone] P:[phone] Echocardiographic Report Patient Name: ÓSCAR PAK S : 1945 Study Date: 07/01/2024 1:55:56 PM Gender: F Tech: Location: [facility] Provider: CIARAN GEORGE Height(Cm): 163 BSA: [...] FINDINGS: Interpretation Site: Exam was interpreted at [facility]. Left Ventricle: Normal left ventricular size. Mild [...] tamponade. Electronically Signed By: Ciaran George MD, [facility] 07/01/2024 2:43:17 PM CDT Ciaran George MD CV ECHO PROCEDURES Final Result from Last [address] [place] [address] [facility] MEDICARE ADVANTAGE [facility] MEDICARE ADVANTAGE [facility] MEDICARE ADVANTAGE Care Teams Acquisitions Assistant Relationship Specialty Start Date End Date Devora Olguin MD [address] [place] [address] PCP - General Family Medicine 05/27/24
--- OUTSIDE RECORDS SUMMARY | 2024-07-13 07:11 | XMS_ITS | Data Portability ---
Author Organization [place] - [facility], Main Office Address [address] [place] [address] Assessment No assessment recorded. Plan of Treatment Reminders Order Date Submit Date Provider Last Modified By Organization Details Last Modified Time Details Appointments None recorded. Lab noninvasive colorectal cancer DNA + occult blood screening, QL, stool 2023 024 [email or web address] [employer] (Cologuard Orders Only), [address], [address], [place], [address], 4 08:56:17 CBC w/ auto diff 2022 023 [email or web address] Not available 3 08:06:51 BMP, serum or plasma 2022 023 [email or web address] Not available 3 08:06:51 lipid panel, serum 2022 023 [email or web address] Not available 3 08:06:51 hepatic function panel, serum 2022 023 [email or web address] Not available 3 08:06:52 TSH, serum or plasma 2022 023 [email or web address] Not available 3 08:06:51 T4, free, serum 2022 023 [email or web address] Not available 3 08:06:51 Referral None recorded. Procedures None recorded. Surgeries None recorded. Imaging None recorded. Medication Orders atorvastati n 20 mg tablet 2023 024 BETINA [facility], [facility] [address], [place] [address], [place], [place], [id number], 10:55:07 Patient TargetsNo targets recorded. Patient Instructions Encounter Date Encounter Id Patient Instructions Last Modified By Organization Details Last Modified Time 08/21/2022 [id number] dementia rating scale-2* [email or web address] Not available 08/21/2022 12:24:34 multi-dimensiona l health assessment questionnaire* BETINA Not available 08/21/2022 11:16:54 care plan* [email or web address] Not available 05/2022 12:24:25 Personalized Hea lth Plan and Screening Recommendations Advance Directives - Do you have one? Advance Directives - Do we have your advance directive on file in your health record? Primary Prevention/Interven tion (prevents or decreases the chance of common diseases from occurring) Smoking Risk: Alcohol Misuse Screening: Weight: Physical activity: Nutrition: Fall Risk (screened today): Vaccines Pneumococcal: Influenza: Your next one in the fall of this year Chronic Disease Risks Stroke: I have no recommendations Act rafal diagnosis, Continue current treatment plan Heart Attack: I have no recommendations Act rafal diagnosis, Continue current treatment plan Clogging of the Arteries: I have no recommendations Act rafal diagnosis, Continue current treatment plan Diabetes: Active diagnosis, Continue current treatment plan Secondary Prevention/Interven tion (detects treatable diseases before they may cause symptoms, disability, or ) Breast Cancer Screening with mammogram: Cervical/Uterine/Ov wilman Cancer Screening: Osteoporosis Screening: Date Screening Last Performed: Colon Cancer Screening: Colonoscopy Fecal Occult Blood Cologuard (DNA stool test) Date Screening Last Performed: Eye Disease Screening: Dementia Risk: Depression Screening: Active diagnosis, Continue current treatment plan Not available 09/18/2022 18:12:53 08/28/2023 [id number] dementia rating scale-2* [email or web address] Not available 08/28/2023 13:40:05 Personalized Hea lth Plan and Screening Recommendations Advance Directives - Do you have one? Advance Directives - Do we have your advance directive on file in your health record? Primary Prevention/Interven tion (prevents or decreases the chance of common diseases from occurring) Smoking Risk: Alcohol Misuse Screening: Weight: Physical activity: Nutrition: Fall Risk (screened today): Vaccines Pneumococcal: Influenza: Your next one in the fall of this year Chronic Disease Risks Stroke: I have no recommendations Act rafal diagnosis, Continue current treatment plan Heart Attack: I have no recommendations Act rafal diagnosis, Continue current treatment plan Clogging of the Arteries: I have no recommendations Act rafal diagnosis, Continue current treatment plan Diabetes: Active diagnosis, Continue current treatment plan Secondary Prevention/Interven tion (detects treatable diseases before they may cause symptoms, disability, or ) Breast Cancer Screening with mammogram: Cervical/Uterine/Ov wilman Cancer Screening: Osteoporosis Screening: Date Screening Last Performed: Colon Cancer Screening: Date Screening Last Performed: Eye Disease Screening: Dementia Risk: Depression Screening: Active diagnosis, Continue current treatment plan Not available 09/08/2023 12:50:16 Reason for Referral None Reported. Results Created Date Observation Date Name Description Value Unit Range Abnormal Flag Note LastModifiedBy Organization Detail LastModifiedTime 01/11/20 22 01/11/2022 VITAM IN D,25- OH,TO SIMONE,I A vitamin D,25-oh,tota l,ia 74 NG/mL 30-100 normal Vitam in D Statu s 25-OH Vitam in D: Defic iency : <20 ng/mL Insuf ficie ncy: 20 - 29 ng/mL Optim al: > or = 30 ng/mL For 25-OH Vitam in D testi ng on patie nts on D2-shultz pplem entat ion and patie nts for whom quant itati on of D2 and D3 fract ions is requi red, the [facility] Ass[facility] eD(TM ) 25-OH VIT D, (D2,D 3), LC/MS /MS is recom jaye d: order code 07779 (mitul ents >2yrs ). See Note 1 Note 1 For addit ional infor stephanie lizama e refer to http: //myriam michelle.Que stDia gnost ics.c om/fa q/FAQ 199 (This link is being provi ded for infor matio nal/ educa jun l purpo ses only. ) Not Available [facility] [address], [address], 01/11/2022 07:20:38 01/11/20 22 01/11/2022 VITAM IN B12/F OLATE , SERUM PANEL vitamin B12 290 pg/mL 200-11 00 normal Pleas e Note: Altho ugh the refer ence range for vitam in B12 is 200-1 100 pg/mL , it has been repor thiago that betwe en 5 and 10% of patie nts with value s betwe en 200 and 400 pg/mL may exper ience neuro psych iatri c and hemat ologi c abnor malit ies due to occul t B12 defic iency ; less than 1% of patie nts with value s above 400 pg/mL will have sympt oms. Not Available [facility] [address], [address], 01/11/2022 07:20:37 01/11/20 22 01/11/2022 VITAM IN B12/F OLATE , SERUM PANEL folate, serum 13.5 NG/mL normal Refer ence Range Low: <3.4 Borde rline : 3.4-5 .4 Guera l: >5.4 Not Available [facility] [address], [address], 01/11/2022 07:20:37 01/11/20 22 01/11/2022 CBC (INCL UDES DIFF/ PLT) white blood cell count 5.3 thous and/u L 3.8-10 .8 normal Not Available [facility] [address], [address], 01/11/2022 07:20:37 01/11/2001/11/2022 CBC (INCL UDES DIFF/ PLT) red blood cell count 3.96 eddi on/uL 3.80-5 .10 normal Not Available [facility] [address], [address], 01/11/2022 07:20:37 01/11/20 22 01/11/2022 CBC (INCL UDES DIFF/ PLT) hemoglobin 11.9 g/dL 11.7-1 5.5 normal Not Available [address], [address], 01/11/2022 07:20:37 01/11/20 22 01/11/2022 CBC (INCL UDES DIFF/ PLT) hematocrit 37.0 % 35.0-4 5.0 normal Not Available [address], [address], 01/11/2022 07:20:37 01/11/2001/11/2022 CBC (INCL UDES DIFF/ PLT) MCV 93.4 fL 80.0-1 00.0 normal Not Available [address], [address], 01/11/2022 07:20:37 01/11/20 22 01/11/2022 CBC (INCL UDES DIFF/ PLT) MCH 30.1 pg 27.0-3 3.0 normal Not Available [address], [address], 01/11/2022 07:20:37 01/11/20 22 01/11/2022 CBC (INCL UDES DIFF/ PLT) MCHC 32.2 g/dL 32.0-3 6.0 normal Not Available [address], [address], 01/11/2022 07:20:37 01/11/2001/11/2022 CBC (INCL UDES DIFF/ PLT) RDW 11.8 % 11.0-1 5.0 normal Not Available [address], [address], 01/11/2022 07:20:37 01/11/20 22 01/11/2022 CBC (INCL UDES DIFF/ PLT) platelet count 176 thous and/u L 140-40 0 normal Not Available [address], [address], 01/11/2022 07:20:37 01/11/20 22 01/11/2022 CBC (INCL UDES DIFF/ PLT) MPV 9.8 fL 7.5-12 .5 normal Not Available [address], [address], 01/11/2022 07:20:37 01/11/20 22 01/11/2022 CBC (INCL UDES DIFF/ PLT) absolute neutrophils 3535 cells /uL 1500-7 800 normal Not Available [address], [address], 01/11/2022 07:20:37 01/11/20 22 01/11/2022 CBC (INCL UDES DIFF/ PLT) absolute lymphocytes 843 cells /uL 850-39 00 low Not Available [address], [address], 01/11/2022 07:20:37 01/11/20 22 01/11/2022 CBC (INCL UDES DIFF/ PLT) absolute monocytes 604 cells /uL 200-95 0 normal Not Available [address], [address], 01/11/2022 07:20:37 01/11/20 22 01/11/2022 CBC (INCL UDES DIFF/ PLT) absolute eosinophils 270 cells /uL 15-500 normal Not Available [address], [address], 01/11/2022 07:20:37 01/11/20 22 01/11/2022 CBC (INCL UDES DIFF/ PLT) absolute basophils 48 cells /uL 0-200 normal Not Available [address], [address], 01/11/2022 07:20:37 01/11/20 22 01/11/2022 CBC (INCL UDES DIFF/ PLT) neutrophils 66.7 % normal Not Available [address], [address], 01/11/2022 07:20:37 01/11/20 22 01/11/2022 CBC (INCL UDES DIFF/ PLT) lymphocytes 15.9 % normal Not Available [address], [address], 01/11/2022 07:20:37 01/11/20 22 01/11/2022 CBC (INCL UDES DIFF/ PLT) monocytes 11.4 % normal Not Available [address], [address], 01/11/2022 07:20:37 01/11/20 22 01/11/2022 CBC (INCL UDES DIFF/ PLT) eosinophils 5.1 % normal Not Available [address], [address], 01/11/2022 07:20:37 01/11/20 22 01/11/2022 CBC (INCL UDES DIFF/ PLT) basophils 0.9 % normal Not Available [address], [address], 01/11/2022 07:20:37 01/11/20 22 01/11/2022 BASIC METAB OLIC PANEL creatinine 0.82 mg/dL 0.60-1 .00 normal Not Available [facility] [address], [address], 01/11/2022 07:20:36 01/11/20 22 01/11/2022 BASIC METAB OLIC PANEL glucose 84 mg/dL 65-99 normal Fasti ng refer ence inter miryam Not Available [address], [address], 01/11/2022 07:20:36 01/11/20 22 01/11/2022 BASIC METAB OLIC PANEL urea nitrogen (BUN) 20 mg/dL 7-25 normal Not Available [address], [address], 01/11/2022 07:20:36 01/11/20 22 01/11/2022 BASIC METAB OLIC PANEL eGFR 75 mL/mi n/1.7 3m2 > or = 60 normal The eGFR is based on the CKD-E PI 2020 equat ion. To calcu late the new eGFR from a previ ous Creat inine or Cysta tin C resul t, go to https ://saloni marquez.linda christine.o christine/mei spicer s/ kdoqi /gfr% 5Fcal culat or Not Available [place] [address] [place], [address], 01/11/2022 07:20:36 01/11/20 22 01/11/2022 BASIC METAB OLIC PANEL BUN/creatini ne ratio not applic able (calc ) 6-22 Not Available [place] [address] [place], [address], 01/11/2022 07:20:36 01/11/20 22 01/11/2022 BASIC METAB OLIC PANEL sodium 143 mmol/ L 135-14 6 normal Not Available [address], [address], 01/11/2022 07:20:36 01/11/20 22 01/11/2022 BASIC METAB OLIC PANEL potassium 4.3 mmol/ L 3.5-5. 3 normal Not Available [place] [address] [place], [address], 01/11/2022 07:20:36 01/11/20 22 01/11/2022 BASIC METAB OLIC PANEL chloride 109 mmol/ L 98-110 normal Not Available [place] [address] [place], [address], 01/11/2022 07:20:36 01/11/20 22 01/11/2022 BASIC METAB OLIC PANEL carbon dioxide 28 mmol/ L 20-32 normal Not Available [address], [address], 01/11/2022 07:20:36 01/11/20 22 01/11/2022 BASIC METAB OLIC PANEL calcium 9.3 mg/dL 8.6-10 .4 normal Not Available [address], [address], 01/11/2022 07:20:36 01/11/20 22 01/11/2022 TSH+F REE T4 TSH 3.15 mIU/L 0.40-4 .50 normal Not Available [address], [address], 01/11/2022 07:20:35 01/11/20 22 01/11/2022 TSH+F REE T4 T4, free 1.2 NG/dL 0.8-1. 8 normal Not Available [address], [address], 01/11/2022 07:20:35 03/21/20 22 03/22/2022 VITAM IN B12 vitamin B12 948 pg/mL 200-11 00 normal Not Available [address], [address], 03/22/2022 18:34:17 03/21/20 22 03/22/2022 FOLAT E, SERUM folate, serum 20.7 NG/mL normal Refer ence Range Low: <3.4 Borde rline : 3.4-5 .4 Guera l: >5.4 Not Available [address], [address], 03/22/2022 18:34:17 06/28/19 23 06/28/2022 FOLAT E, SERUM folate, serum 21.3 NG/mL normal Refer ence Range Low: <3.4 Borde rline : 3.4-5 .4 Guera l: >5.4 Not Available [address], [address], 06/28/2022 03:09:16 06/28/19 23 06/28/2022 VITAM IN B12 vitamin B12 1071 pg/mL 200-11 00 normal Not Available [address], [address], 06/28/2022 03:09:17 03/11/20 23 03/12/2023 LIPID PANEL , STAND DELLA cholesterol, total 150 mg/dL <200 normal Not Available [address], [address], 03/12/2023 05:04:38 03/11/20 23 03/12/2023 LIPID PANEL , STAND EDLLA HDL cholesterol 64 mg/dL > or = 50 normal Not Available [address], [address], 03/12/2023 05:04:38 03/11/20 23 03/12/2023 LIPID PANEL , STAND DELLA triglyceride s 84 mg/dL <150 normal Not Available [address], [address], 03/12/2023 05:04:38 03/11/20 23 03/12/2023 LIPID PANEL , STAND DELLA LDL-choleste rol 70 mg/dL _(gabriella c) normal Refer ence range : <100 Ok able range <100 mg/dL for prima ry preve ntion ; <70 mg/dL for patie nts with CHD or diabe tic patie nts with > or = 2 CHD risk facto rs. LDL-C is now calcu lated using the Irma n-Hop kins calcu latroxanna n, which is a valid ated novel metho d provi amber licea r accur acy than the Fried herlinda equat ion in the estim ation of LDL-C . Irma michelle SS et al. HOWARD. 2013; 310(1 9): 2061- 2068 (http ://ed ucati on.Total Immersion raynaWSC Group. Animal [employer]/f aq/FA Q164) Not Available [address], [address], 03/12/2023 05:04:38 03/11/20 23 03/12/2023 LIPID PANEL , STAND DELLA chol/HDLC ratio 2.3 (calc ) <5.0 normal Not Available [address], [address], 03/12/2023 05:04:38 03/11/20 23 03/12/2023 LIPID PANEL , STAND DELLA non HDL cholesterol 86 mg/dL _(gabriella c) <130 normal For patie nts with diabe kathia plus 1 major ASCVD risk facto r, treat ing to a non-H DL-C goal of <100 mg/dL (LDL- C of <70 mg/dL ) is consi dered a thera pewilmer c salmao n. Not Available [address], [address], 03/12/2023 05:04:38 03/11/20 23 03/12/2023 BASIC METAB OLIC PANEL glucose 93 mg/dL 65-99 normal Fasti ng refer ence inter miryam Not Available [place] [address] [place], [address], 03/12/2023 05:04:39 03/11/20 23 03/12/2023 BASIC METAB OLIC PANEL urea nitrogen (BUN) 19 mg/dL 7-25 normal Not Available [facility] [address], [address], 03/12/2023 05:04:39 03/11/20 23 03/12/2023 BASIC METAB OLIC PANEL creatinine 0.80 mg/dL 0.60-1 .00 normal Not Available [address], [address], 03/12/2023 05:04:39 03/11/20 23 03/12/2023 BASIC METAB OLIC PANEL eGFR 76 mL/mi n/1.7 3m2 > or = 60 normal Not Available [address], [address], 03/12/2023 05:04:39 03/11/20 23 03/12/2023 BASIC METAB OLIC PANEL BUN/creatini ne ratio SEE NOTE: (calc ) 6-22 Not Repor thiago: BUN and Creat inine are withi n refer ence range . Not Available [address], [address], 03/12/2023 05:04:39 03/11/20 23 03/12/2023 BASIC METAB OLIC PANEL sodium 141 mmol/ L 135-14 6 normal Not Available [address], [address], 03/12/2023 05:04:39 03/11/20 23 03/12/2023 BASIC METAB OLIC PANEL potassium 4.3 mmol/ L 3.5-5. 3 normal Not Available [address], [address], 03/12/2023 05:04:39 03/11/20 23 03/12/2023 BASIC METAB OLIC PANEL chloride 108 mmol/ L 98-110 normal Not Available [address] [place], [address], 03/12/2023 05:04:39 03/11/20 23 03/12/2023 BASIC METAB OLIC PANEL carbon dioxide 27 mmol/ L 20-32 normal Not Available [address], [address], 03/12/2023 05:04:39 03/11/20 23 03/12/2023 BASIC METAB OLIC PANEL calcium 8.9 mg/dL 8.6-10 .4 normal Not Available [address], [address], 03/12/2023 05:04:39 03/11/20 23 03/12/2023 HEPAT IC FUNCT ION PANEL protein, total 6.0 g/dL 6.1-8. 1 low Not Available [address], [address], 03/12/2023 05:04:40 03/11/20 23 03/12/2023 HEPAT IC FUNCT ION PANEL albumin 3.8 g/dL 3.6-5. 1 normal Not Available [address], [address], 03/12/2023 05:04:40 03/11/20 23 03/12/2023 HEPAT IC FUNCT ION PANEL globulin 2.2 g/dL_ (calc ) 1.9-3. 7 normal Not Available [address], [address], 03/12/2023 05:04:40 03/11/20 23 03/12/2023 HEPAT IC FUNCT ION PANEL albumin/glob ulin ratio 1.7 (calc ) 1.0-2. 5 normal Not Available [address], [address], 03/12/2023 05:04:40 03/11/20 23 03/12/2023 HEPAT IC FUNCT ION PANEL bilirubin, total 0.5 mg/dL 0.2-1. 2 normal Not Available [address], [address], 03/12/2023 05:04:40 03/11/20 23 03/12/2023 HEPAT IC FUNCT ION PANEL bilirubin, direct 0.1 mg/dL < or = 0.2 normal Not Available [address], [address], 03/12/2023 05:04:40 03/11/20 23 03/12/2023 HEPAT IC FUNCT ION PANEL bilirubin, indirect 0.4 mg/dL _(gabriella c) 0.2-1. 2 normal Not Available [facility] [address], [address], 03/12/2023 05:04:40 03/11/20 23 03/12/2023 HEPAT IC FUNCT ION PANEL alkaline phosphatase 189 U/L 37-153 high Not Available [facility] [address], [address], 03/12/2023 05:04:40 03/11/20 23 03/12/2023 HEPAT IC FUNCT ION PANEL AST 34 U/L 10-35 normal Not Available [address], [address], 03/12/2023 05:04:40 03/11/20 23 03/12/2023 HEPAT IC FUNCT ION PANEL ALT 30 U/L 6-29 high Not Available [facility] [address], [address], 03/12/2023 05:04:40 03/11/20 23 03/12/2023 CBC (INCL UDES DIFF/ PLT) white blood cell count 4.1 thous and/u L 3.8-10 .8 normal Not Available [facility] [address], [address], 03/12/2023 05:04:41 03/11/20 23 03/12/2023 CBC (INCL UDES DIFF/ PLT) red blood cell count 3.76 eddi on/uL 3.80-5 .10 low Not Available [facility] [address], [address], 03/12/2023 05:04:41 03/11/20 23 03/12/2023 CBC (INCL UDES DIFF/ PLT) hemoglobin 11.8 g/dL 11.7-1 5.5 normal Not Available [address], [address], 03/12/2023 05:04:41 03/11/20 23 03/12/2023 CBC (INCL UDES DIFF/ PLT) hematocrit 35.5 % 35.0-4 5.0 normal Not Available [address], [address], 03/12/2023 05:04:41 03/11/20 23 03/12/2023 CBC (INCL UDES DIFF/ PLT) MCV 94.4 fL 80.0-1 00.0 normal Not Available [address], [address], 03/12/2023 05:04:41 03/11/20 23 03/12/2023 CBC (INCL UDES DIFF/ PLT) MCH 31.4 pg 27.0-3 3.0 normal Not Available [address], [address], 03/12/2023 05:04:41 03/11/20 23 03/12/2023 CBC (INCL UDES DIFF/ PLT) MCHC 33.2 g/dL 32.0-3 6.0 normal Not Available [address], [address], 03/12/2023 05:04:41 03/11/20 23 03/12/2023 CBC (INCL UDES DIFF/ PLT) RDW 11.8 % 11.0-1 5.0 normal Not Available [address], [address], 03/12/2023 05:04:41 03/11/20 23 03/12/2023 CBC (INCL UDES DIFF/ PLT) platelet count 168 thous and/u L 140-40 0 normal Not Available [address], [address], 03/12/2023 05:04:41 03/11/20 23 03/12/2023 CBC (INCL UDES DIFF/ PLT) MPV 10.1 fL 7.5-12 .5 normal Not Available [address], [address], 03/12/2023 05:04:41 03/11/20 23 03/12/2023 CBC (INCL UDES DIFF/ PLT) absolute neutrophils 2169 cells /uL 1500-7 800 normal Not Available [address], [address], 03/12/2023 05:04:41 03/11/20 23 03/12/2023 CBC (INCL UDES DIFF/ PLT) absolute lymphocytes 1111 cells /uL 850-39 00 normal Not Available [address], [address], 03/12/2023 05:04:41 03/11/20 23 03/12/2023 CBC (INCL UDES DIFF/ PLT) absolute monocytes 574 cells /uL 200-95 0 normal Not Available [address], [address], 03/12/2023 05:04:41 03/11/20 23 03/12/2023 CBC (INCL UDES DIFF/ PLT) absolute eosinophils 197 cells /uL 15-500 normal Not Available [address], [address], 03/12/2023 05:04:41 03/11/20 23 03/12/2023 CBC (INCL UDES DIFF/ PLT) absolute basophils 49 cells /uL 0-200 normal Not Available [address], [address], 03/12/2023 05:04:41 03/11/20 23 03/12/2023 CBC (INCL UDES DIFF/ PLT) neutrophils 52.9 % normal Not Available [address], [address], 03/12/2023 05:04:41 03/11/20 23 03/12/2023 CBC (INCL UDES DIFF/ PLT) lymphocytes 27.1 % normal Not Available [address], [address], 03/12/2023 05:04:41 03/11/20 23 03/12/2023 CBC (INCL UDES DIFF/ PLT) monocytes 14.0 % normal Not Available [address], [address], 03/12/2023 05:04:41 03/11/20 23 03/12/2023 CBC (INCL UDES DIFF/ PLT) eosinophils 4.8 % normal Not Available [facility] [address], [address], 03/12/2023 05:04:41 03/11/20 23 03/12/2023 CBC (INCL UDES DIFF/ PLT) basophils 1.2 % normal Not Available [address], [address], 03/12/2023 05:04:41 03/11/20 23 03/12/2023 T4, FREE T4, free 1.0 NG/dL 0.8-1. 8 normal Not Available [address], [address], 03/12/2023 05:04:42 03/11/20 23 03/12/2023 TSH TSH 5.12 mIU/L 0.40-4 .50 high Not Available [address], [address], 03/12/2023 05:04:43 07/10/19 24 07/11/2023 T4, FREE T4, free 1.2 NG/dL 0.8-1. 8 normal Not Available [address], [address], 07/11/2023 06:01:16 07/10/19 24 07/11/2023 TSH TSH 2.42 mIU/L 0.40-4 .50 normal Not Available [facility] [address] [place], [address], 07/11/2023 06:01:17 09/10/19 24 09/10/2023 COLOG UARD cologuard result reportable NEGATI VE negati ve normal NEGAT RAFAL TEST RESUL T. A negat rafal Colog uard resul t indic ates a low likel ihood that a color ectal cance r (CRC) or advan mihaela adeno ma (meredith omato us polyp s with more advan mihaela pre-m align ant featu res) is prese nt. The [facility] e that a perso n with a negat rafal Colog uard test has a color ectal cance r is less than 1 in 1500 (nega tive predi ctive value >99.9 %) or has an advan mihaela adeno ma is less than 5.3% (nega tive predi ctive value 94.7% ). These data are based on a prosp ectiv e cross -sect ional study of 10,00 0 indiv idual s at [facility] risk for color ectal cance r who were scree isiah with both Colog uard and colon oscop y. (Zoraida Harden. et al, N Engl J Med 2014; 370(1 4):12 86-12 97) The guera l value (refe rence range ) for this assay is negat rafal. COLOG UARD RE-SC REENI NG RECOM MENDA TION: Perio dic color ectal cance r screchichi gupta is an impor tant part of preve ntive healt hcare for asymp tomat ic indiv idual s at [facility] risk for color ectal cance r. Follo wing a negat rafal Colog uard resul t, the Ameri can Cance r Socie ty and U.S. Multi -Soci ety Task Force scree candy guide lines recom mend a Colog uard re-sc reeni ng inter miryam of 3 years . Refer ences : Neto can Cance r Socie ty Guide line for Color ectal Cance r Scree candy: https ://saloni w.can cer.o rg/ca ncer/ colon -rect al-ca ncer/ detec tion- diagn osis- stagi ng/ac s-rec ommen datio ns.ht ml.; Victoriano DK, Janki powell CR, Matthew HarrisK, Color ectal Cance r Scree candy: Recom menda tions for Physi cians and Patie nts from the U.S. Multi -Soci ety Task Force on Color ectal Cance r Scree candy , Am J Gastr oente rolog y 2017; 112:1 016-1 030. TEST DESCR IPTIO N: [place] site algor ithmi c jonathon sis of stool DNA-b manish alfaro with hemog lobin immun oassa y. Quant itati ve value s of indiv idual bioma rkers are not repor table and are not assoc iated with indiv idual bioma rker resul t refer ence range s. Colog uard is inten ded for color ectal cance r scree candy of adult s of eithe r sex, 45 years or older , who are at [facility] for color ectal cance r (CRC) . Colog uard has been appro maycol for use by the U.S. FDA. The perfo rmanc e of Colog uard was estab lishe d in a cross secti onal study of [facility] adult s aged 50-84 . Colog uard perfo rmanc e in patie nts ages 45 to 49 years was estim ated by sub-g roup jonathon sis of near- age group s. Colon oscop ies perfo rmed for a posit rafal resul t may find as the most clini guicho signi jesica mendez n: color ectal cance r [4.0% ], advan mihaela adeno ma (incl uding sessi le boone thiago polyp s great er than or equal to 1cm diame ter) [20%] or non- advan mihaela adeno ma [31%] ; or no color ectal neopl gemma [45%] . These estim ates are deriv ed from a prosp ectiv e cross -sect ional teresa gupta study of , 0 indiv idual s at avera ge risk for color ectal cance r who were scree isiah with both Colog uard and colon oscop y. (Zoraida Cline al, N Engl J Med 2014; 370(1 4):12 86-12 97.) Colog uard may produ ce a false negat rafal or false posit rafal resul t (no color ectal cance r or preca ncero us polyp prese nt at colon oscop y follo w up). A negat rafal Colog uard test resul t does not guara ntee the absen ce of CRC or advan mihaela adeno ma (pre- cance r). The curre nt Colog uard teresa gupta inter miryam is every 3 years . ([employer] and [place] [employer] Task Force ). Colog uard perfo rmanc e data in a 0 patie nt pivot al study using colon oscop y as the refer ence metho d can be acces sed at the follo wing locat ion: www.e xactl abs.c om/re sammy . Addit ional descr iptio n of the Colog uard test proce ss, warni ngs and preca ution s can be found at www.c robbin kangd.c om. Not Available [employer] (Cologuard Orders Only) [address], [place], [address], 09/23/2023 20:53:06 01/17/20 22 01/16/2022 US, doppl er, venou s No observ ation record ed. [id number], [address], 06/20/2022 01:33:19 05/22/19 23 05/22/2022 MAMMO , teresa gupta, digit al, bilat eral No observ ation record ed. [id number] [place], [address], 06/20/2022 01:33:19 06/01/19 23 06/01/2022 XR, cervi gabriella spine No observ ation record ed. [id number], [place], [address], 06/20/2022 01:33:19 06/01/19 23 06/01/2022 CT, cervi gabriella spine , w/o contr ast No observ ation record ed. [id number], [place], [address], 06/20/2022 01:33:19 08/21/19 23 08/20/2022 DEXA No observ ation record ed. [address], [address], 08/21/2022 08:08:57 07/16/19 24 07/16/2023 MAMMO , scree candy, bilat eral No observ ation record ed. [address] [facility], [place], [address], 08/28/2023 10:37:50 Result Notes None recorded. Problems Name Problem SNOMED Code Status Onset Date Resolution Date Notes Provider Name and Address Organization Details Recorded Time Acute sinusitis 50813379 Active Not Available [facility] 4 09:14:42 Pain in throat 717768171 Active Not Available [facility] 4 09:14:42 Cerebrovas cular accident 766820811 Completed Not Available [facility] 3 01:11:19 Gastroesop hageal reflux disease 570330141 Active Not Available [facility] 4 09:14:42 Transient cerebral ischemia 922084809 Active 5 Not Available [facility] 4 09:14:42 Sinusitis 19123432 Active Not Available [facility] 4 09:14:42 Primary malignant neoplasm of uterine cervix 791034983 Active s/p hyst Not Available [facility] 4 09:14:42 Hypertensi ve disorder 21378685 Active Not Available [facility] 4 09:14:42 Upper respirator y infection 25187283 Active Not Available [facility] 4 09:14:42 Nasal congestion 78415601 Active Not Available [facility] 4 09:14:42 Posterior rhinorrhea 63688226 Active Not Available [facility] 4 09:14:42 Fatigue 69199448 Active Not Available [facility] 4 09:14:42 Seizure 72382470 Active 2021 Not Available [facility] 4 09:14:42 Degenerati on of cervical interverte bral disc 97907392 Active 2022 Not Available [facility] 4 09:14:42 Essential hypertensi on 26123532 Active 2022 Not Available [facility] 4 09:14:42 Hypothyroi dism 90915416 Active 2022 Not Available [facility] 4 09:14:42 Hyperlipid emia 21300526 Active 2022 Not Available [facility] 4 09:14:42 Edema of lower extremity 430348982 Active 2022 Not Available [facility] 4 09:14:42 Problem Notes None recorded. Procedures Surgical History Date Name Laterality Status Provider Name and Address Organization Details Recorded Time 4 Medicare Wellness CPT Code, subsequent completed Zulma Liu RN [facility] [facility] 08/28/2023 10:26:50 3 Medicare Wellness CPT Code, subsequent completed DONNIE Clark Rosa [place] [employer] [facility] 08/21/2022 10:28:05 3 Medicare Wellness CPT Code, Initial completed [facility] 08/21/2022 10:28:07 Imaging Results Imaging Date Name Status LastModified by Organiz ation Details LastModified Time 06/01/2022 XR, cervical spine completed [id number] [address] [place] [address] [place] [address], [address], 06/20/2022 01:33:19 05/22/2022 MAMMO, screening, digital, bilateral completed [id number] [address] [place] [address], [place], [address], 06/20/2022 01:33:19 06/01/2022 CT, cervical spine, w/o contrast completed [id number] [address] [place] [address], [place], [address], 06/20/2022 01:33:19 01/16/2022 US, doppler, venous completed [id number] [address] [place] [address], [place], [address], 06/20/2022 01:33:19 08/20/2022 DEXA completed [address], [address], 08/21/2022 08:08:57 07/16/2023 MAMMO, screening, bilateral completed [address], [address], 08/28/2023 10:37:50 Procedure Notes None recorded. Medical Equipment None Reported. Allergies Allergen ID Allergen Name Allergen Category Reaction Reaction Severity Criticality Documentation Date Start Date Code Code System Note Provider Name and Address Organization Details Recorded Time 2702 Augmentin medicatio n Not available Not available Not available 06/20/2022 46417 2 RxNorm c-dif f Not Available [facility] 01:32:21 Medications Name Sig Start Date Stop Date Status Note LastModified by Organization Details LastModified Time cyclobenz aprine 10 mg tablet TAKE 1/2 TO 1 TABLET BY MOUTH THREE TIMES DAILY FOR 10 DAYS NEEDED 01/10 completed Not Available Not Available Not Available methocarb lesa 500 mg tablet TAKE ONE TABLET BY MOUTH EVERY 6 HOURS NEEDED FOR MUSCLE ACHE active Not Available Not Available No t Available doxycycli ne hyclate 100 mg capsule TAKE 1 CAPSULE BY MOUTH TWICE DAILY FOR 10 DAYS 08/27 completed Not Available Not Available Not Available atorvasta tin 20 mg tablet TAKE 1 TABLET BY MOUTH EVERY NIGHT AT BEDTIME active Not Available Not Available No t Available azithromy ralph 250 mg tablet TK 2 TS PO D FOR 1 DAY THEN 1 T D FOR 4 DAYS. active Not Available Not Available No t Available aspirin 325 mg tablet Take 1 tablet every day by oral route. 2015 active Not Available Not Available Not Avai lable levetirac etam 500 mg tablet TAKE 1 TABLET BY MOUTH TWICE DAILY. active Not Available Not Available No t Available hydrocodo ne 5 mg-acetam inophen 325 mg tablet TAKE ONE TABLET BY MOUTH EVERY 4 HOURS NEEDED FOR PAIN active Not Available Not Available No t Available lisinopri l 20 mg tablet Take 1 tablet twice a day by oral route for 90 days. 09/27 completed Not Available Not Available Not Available prednison e 20 mg tablet Take 2 tablets every day by oral route for 5 days. 04/03 completed Not Available Not Available Not Available alendrona te 70 mg tablet Take 1 tablet every week by oral route for 84 days. 04/05 completed Not Available Not Available Not Available alclometa sone 0.05 % topical cream 01/10 completed Not Available Not Available Not Available amlodipin e 5 mg tablet Take 1 tablet by mouth once daily 03/29 completed Not Available Not Available Not Available sulfameth oxazole 800 mg-trimet hoprim 160 mg tablet Take 1 tablet every 12 hours by oral route for 10 days. 10/02 completed Not Available Not Available Not Available omeprazol e 40 mg capsule,d elayed release Take 1 capsule every day by oral route. active Not Available Not Available No t Available triamcino lone acetonide 0.1 % topical cream APPLY THIN LAYER TOPICALL Y TO THE AFFECTED AREA TWICE DAILY active Not Available Not Available No t Available levothyro xine 25 mcg tablet TAKE 1 TABLET BY MOUTH ONCE DAILY 08/27 completed Not Available Not Available Not Available amoxicill in 875 mg tablet Take 1 tablet every 12 hours by oral route with meals for 10 days. 10/02 completed Not Available Not Available Not Available famotidin e 20 mg tablet Take 1 tablet twice a day by oral route. 08/21 completed Not Available Not Available Not Available estradiol 1 mg tablet TK 1 T PO QD active Not Available Not Available No t Available amlodipin e 10 mg tablet 1 po qday active Not Available Not Available No t Available levothyro xine 50 mcg tablet TAKE 1 TABLET BY MOUTH DAILY active Not Available Not Available No t Available simvastat in 20 mg tablet Take 1 po daily 09/27 completed Not Available Not Available Not Available methylpre dnisolone acetate 40 mg/mL suspensio n for injection 08/21 completed Not Available Not Available Not Available cyanocoba dinorah (vit B-12) 1,000 mcg/mL injection solution Inject 1 mL every month by subcutan eous route. 08/21 completed Not Available Not Available Not Available oseltamiv ir 75 mg capsule 08/27 completed Not Available Not Available Not Available neomycin- polymyxin -dexameth 3.5 mg/mL-10, 000 unit/mL-0 .1% eye drops INSTILL 1 DROP IN AFFECTED EYE(S) FOUR TIMES DAILY FOR 5 DAYS active Not Available Not Available No t Available lisinopri l 10 mg tablet Take 1 tablet every day by oral route for 30 days. active Not Available Not Available No t Available lisinopri l 30 mg tablet Take 1 tablet twice a day by oral route for 30 days. active Not Available Not Available No t Available gabapenti n 300 mg capsule 08/21 completed Not Available Not Available Not Available furosemid e 20 mg tablet TAKE 1 TO 2 TABLETS BY MOUTH EVERY MORNING NEEDED FOR SWELLING active Not Available Not Available No t Available estradiol 0.5 mg tablet Take 1 tablet every day by oral route for 90 days. 05/[address] Ole figueredo Not Available Not Available Not Available ergocalci ferol (vitamin D2) 1,250 mcg (50,000 unit) capsule TAKE ONECAPSU LE BY MOUTH TWICE A MONTH active Not Available Not Available No t Available levofloxa ralph 500 mg tablet TK 1 T PO Q 24 H FOR 7 DAYS 04/03 completed Not Available Not Available Not Available methylpre dnisolone 4 mg tablets in a dose pack FOLLOW PACKAGE DIRECTIO NS 08/21 completed Not Available Not Available Not Available albuterol sulfate HFA 90 mcg/actua tion aerosol inhaler Inhale 2 puffs every 4 hours by inhalati on route. 04/03 completed Not Available Not Available Not Available celecoxib 100 mg capsule TAKE 1 CAPSULE BY MOUTH TWICE DAILY 08/21 completed Not Available Not Available Not Available lisinopri l 40 mg tablet TAKE 1 TABLET BY MOUTH DAILY active Not Available Not Available No t Available fluticaso ne propionat e 50 mcg/actua tion nasal spray,jere pension [place] 1 spray every day by intranas al route as needed for 30 days. active Use 1 spray into both nostril daily as directed . Not Available Not Available Not Available amoxicill in 875 mg-potass ium clavulana te 125 mg tablet TAKE 1 TABLET BY MOUTH EVERY 12 HOURS FOR 10 DAYS 08/27 completed Not Available Not Available Not Available amoxicill in 500 mg-potass ium clavulana te 125 mg tablet Take 1 tablet every 12 hours by oral route. 11/10 completed Not Available Not Available Not Available Blood Glucose Test strips test once daily dx E16.2 active Not Available Not Available No t Available [facility] 1.5 billion cell capsule Take 1 capsule every day by oral route in the morning for 30 days. 12/02 completed Not Available Not Available Not Available Fluzone High-Dose 2013- (PF) 180 mcg/0.5 mL intramusc ular syringe INJECT 0.5 ML INTRAMUS CULARLY DIRECTED . 05/12 completed Not Available Not Available Not Available Fluzone High-Dose (PF) 180 mcg/0.5 mL intramusc ular syringe active Not Available Not Available Not Available OneTouch Verio Flex Meter TEST DIRECTED active Not Available Not Available No t Available Fluzone High-Dose (PF) 180 mcg/0.5 mL intramusc ular syringe ADM 0.5ML IM UTD 04/01 completed Not Available Not Available Not Available Shingrix (PF) 50 mcg/0.5 mL intramusc ular suspensio n, kit PHARMACI ST ADMINIST ERED IMMUNIZA TION ADMINIST ERED AT TIME OF DISPENSI NG active Not Available Not Available No t Available OneTouch Delica Plus Lancet 33 gauge TEST EVERY DAY active Not Available Not Available No t Available Fluad 65yr up(PF)45 mcg(15 mcgx3)/0. 5 mL intramusc ular syringe PHARMACI ST ADMINIST ERED IMMUNIZA TION ADMINIST ERED AT TIME OF DISPENSI NG active Not Available Not Available No t Available ID NOW COVID-19 Test Kit TEST DIRECTED TODAY active Not Available Not Available No t Available Fluad Quad [id number] (65yr up)(PF) 60 mcg (15 mcg x 4)/0.5mL IM syringe PHARMACI ST ADMINIST ERED IMMUNIZA TION ADMINIST ERED AT TIME OF DISPENSI NG active Not Available Not Available No t Available Paxlovid 300 mg (150 mg x 2)-100 mg tablets in a dose pack TK 2 NIRMATRE LVIR TS AND 1 RITONAVI R T TOGETHER PO BID FOR 5 DAYS 08/27 completed Not Available Not Available Not Available Vitals Date Recorded Body mass index (BMI) Body height Oxygen saturation Oxygen saturation in Arterial blood by Pulse oximetry Heart rate Body temperature Body weight Systolic blood pressure Diastolic blood pressure Provider Name and Address Organization Details Last Updated DateTime 2 21.5 kg/m2 162.56 cm 98 % 98 % 74 /min 97.9 [degF] 72273.0 5 g 152 mm[Hg] 88 mm[Hg] Not Available [facility] 3 01:07:08 Date Recorded Body mass index (BMI) Body height Oxygen saturation Oxygen saturation in Arterial blood by Pulse oximetry Heart rate Body temperature Body weight Systolic blood pressure Diastolic blood pressure Provider Name and Address Organization Details Last Updated DateTime 2 21.6 kg/m2 162.56 cm 98 % 98 % 81 /min 97.7 [degF] 03302.6 4 g 130 mm[Hg] 80 mm[Hg] Not Available [facility] 3 01:07:09 Date Recorded Body height Body mass index (BMI) Body weight Body temperature Heart rate Oxygen saturation Oxygen saturation in Arterial blood by Pulse oximetry Systolic blood pressure Diastolic blood pressure Provider Name and Address Organization Details Last Updated DateTime 3 162.56 cm 21.1 kg/m2 09479.8 6 g 97.3 [degF] 72 /min 97 % 97 % 100 mm[Hg] 71 mm[Hg] Jacquie Brewer [place] [facility] [place] [employer] 3 10:30:51 Date Recorded Body height Body mass index (BMI) Body weight Body temperature Heart rate Provider Name and Address Organization Details Last Updated DateTime 02/18/2023 162.56 cm 21.3 kg/m2 45231.45 g 97.6 [degF] 76 /min Zulma Liu RN [facility] [facility] 3 16:19:12 Date Recorded Systolic blood pressure Diastolic blood pressure Provider Name and Address Organization Details Last Updated DateTime 02/18/2023 138 mm[Hg] 82 mm[Hg] Elizabeth Manuel MD [address] [facility], [facility] [address], [place], [address], [facility] [facility] 02/18/2023 16:45:14 Date Recorded Body height Body mass index (BMI) Body weight Body temperature Heart rate Oxygen saturation Oxygen saturation in Arterial blood by Pulse oximetry Systolic blood pressure Diastolic blood pressure Provider Name and Address Organization Details Last Updated DateTime 162.56 cm 21.1 kg/m2 91398.8 6 g 98 [degF] 90 /min 96 % 96 % 136 mm[Hg] 78 mm[Hg] Zulma Liu RN [facility] [facility] 10:29:13 Social History Question Answer Notes LastModified by Organizat ion Details LastModified Time Tobacco Smoking Status Never Smoker Not Available [facility] 06/20/2022 00:53:50 What Is Your Level Of Alcohol Consumption? None [id number] Information not available 06/20/2022 What Is Your Level Of Caffeine Consumption? Moderate [id number] Information not available 06/20/2022 How Much Tobacco Do You Chew? None [id number] Information not available 06/20/2022 What Type Of Diet Are You Following? REGULAR [id number] Information not available 06/20/2022 Do You Or Have You Ever Used E-cigarettes Or Vape? Never Used Electronic Cigarettes [id number] Information not available 06/20/2022 What Is Your Occupation? Retired [id number] Information not available 06/20/2022 What Was The Date Of Your Most Recent Tobacco Screening? 08/28/2023 Information not available 08/28/2023 Do You Or Have You Ever Used Smokeless Tobacco? Never Used Smokeless Tobacco [id number] Information not available 06/20/2022 How Much Tobacco Do You Smoke? No [id number] Information not available 06/20/2022 Do You Use Any Illicit Or Recreational Drugs? No [email or web address] Information not available 08/21/2022 Do You Or Have You Ever Used Any Other Forms Of Tobacco Or Nicotine? No [email or web address] Information not available 08/21/2022 Sex: Unknown Functional Status Question Answer Note LastModified by Organizat ion Details LastModified Time What is your exercise level? Moderate [id number] Information not available 06/20/2022 Mental Status None recorded. Family History Relationship Description Onset Age of this Age Resolved Age Notes LastModified by Organization Details LastModified Time Father No current problems or disability [email or web address] Not available 08/21 10:40:09 Mother No current problems or disability [email or web address] Not available 08/21 10:40:09 Notes:No breast, ovary, colo n cancer Medical History Condition Response BLINDNESS N RHEUMATIC FEVER N KIDNEY STONES N BLADDER PROBLEMS N MRSA N OTHER # 1 N POLIO N LUNG DISEASE/DISORDER N RADIATION / CHEMOTHERAPY N COPD N Other # 2 N BLOOD DISEASES N SURGERY N EAR OR HEARING PROBLEMS N MUMPS N FEMALE PROBLEMS / INFECTIONS N DEPRESSION (INCLUDING POST ) N BOWEL PROBLEMS N STROKE/TIA N THYROID DISEASE N ULCERS N BENIGN PROSTATIC HYPERPLASIA N MEASLES N CERVICALGIA N TB SKIN TEST N MYOCARDIAL INFARCTION N PARAPELGIA N OBESITY N GERD/NAUSEA N ANEURYSM N URINARY/BLADDER/KIDNEY PROBLEMS N CORONARY ARTERY DISEASE (CAD) N MENIERE'S DISEASE N ADDICTION CONCERNS N ENDOMETRIOSIS N USE OF BLOOD THINNERS N SKIN PROBLEMS N EMPHYSEMA N GASTROINTESTINAL DISORDER N MUSCLE,JOINT OR BONE PROBLEMS N GASTROINTESTINAL BLEEDING N BLOOD CLOTS N ASTHMA N CATARACTS N ERECTILE DYSFUNCTION N GI PROBLEMS N CHF N Low Testosterone N NEUROPATHY N INFERTILITY N AIDS/HIV N FRACTURES N CHEMOTHERAPY / RADIATION N VISION/EYE PROBLEMS N LIVER DISEASE N MALE HYPOGONADISM N HYPERTENSION N TOURETTE'S N ANXIETY DISORDER N BLOOD TRANSFUSION N ANEMIA/BLOOD DISORDER N CHRONIC EAR INFECTIONS N BRONCHITIS N TUBERCULOSIS N GLAUCOMA N FOOT PROBLEM N DIVERTICULITIS N SLEEP APNEA N CHICKENPOX N ALLERGIES/HAYFEVER N INFECTIOUS DISEASE N PROSTATE N HEART ARRHYTHMIA N INSOMNIA N HIGH CHOLESTEROL / HYPERLIPIDEMIA N HYPERTHYROIDISM N EYE PROBLEMS N EATING DISORDER N EDEMA N CHRONIC PAIN SYNDROME N CONSTIPATION N CAROTID BLOCKAGE N BACK / NECK PROBLEMS N HAVE YOU BEEN HOSPITALIZED OR SEEN IN [facility] ER IN THE PAST YEAR ? N ATHEROSCLEROSIS N BREAST PROBLEMS N DIALYSIS N ECZEMA N FIBROMYALGIA N OSTEOPOROSIS N ARTHRITIS N NO SIGNIFICANT PAST MEDICAL HISTORY N APPENDICITIS N DIABETES, TYPE N BAD TEETH N HEARTBURN / REFLUX N ADD/ADHD N AUTISM SPECTRUM DISORDER (ASD) N HEPATITIS / LIVER DISEASE N PULMONARY DISEASE N GOUT N SLEEP DISORDER N ALZHEIMER'S DISEASE N PAIN N HERPES N DEMENTIA N SEIZURES/EPILEPSY N HEADACHES/MIGRAINES N VASCULAR DISEASE N PACEMAKER N DIZZINESS N KIDNEY DISEASE N HEART DISEASE/HEART PROBLEMS N SCARLET FEVER N MULTIPLE SCLEROSIS N MENTAL DISORDER/ILLNESS N DEVELOPMENTAL OR BEHAVIORAL DISORDERS N CARDIAC ARRHYTHMIA N CANCER: SPECIFY N PNEUMONIA N Gall Stones N ATRIAL FIBRILLATION N PULMONARY EMBOLISM N AUTOIMMUNE DISEASE N Gynecological History Statement/Question Response Abnormal Pap N Date of Last Mammogram Date of Last Colonoscopy Most Recent Bone Density Date of Last Pap Current Control Method Menopause Breast Problems no Obstetrics History GPAL:G 3 P 3 0 0 3 Type Value Full Term 3 Living 3 Total 3 Immunizations Vaccine Type Date Status Note Provider Nam e and Address Organization Details Recorded Time Respiratory syncytial virus (RSV) vaccine, unspecified 4 completed Zohra Fernandez RN null, [place] - [facility] [employer] 06/21/2023 16:04:52 COVID-19, mRNA, LNP-S, bivalent, PF, 30 mcg/0.3 mL dose 2 completed Not Available [facility] 05/31/2023 06:23:31 pneumococcal polysaccharide PPV23 7 completed Not Available [facility] 05/31/2023 06:23:31 Pneumococcal conjugate PCV 13 6 completed Not Available [facility] 05/31/2023 06:23:31 Influenza, split virus, trivalent, preservative 5 completed Not Available [facility] 05/31/2023 06:23:31 Influenza, split virus, trivalent, preservative 4 completed Not Available [facility] 05/31/2023 06:23:31 zoster live 2 completed Not Available [facility] 05/31/2023 06:23:31 Influenza, high-dose, quadrivalent, PF 2 completed Not Available [facility] 05/31/2023 06:23:31 Past Encounters Encounter ID Performer Location Encounter Start Date Encounter Closed Date Diagnosis/Indication Diagnosis SNOMED-CT Code Diagnosis ICD10 Code Diagnosis Note [id number] [facility] [place] [address] [place] [address] 06/23/2020 00:00:00 07/13/2020 18:06:58 [id number] [facility] [place] [address] [place] [address] 08/10/2020 00:00:00 08/10/2020 13:21:51 [id number] [facility] [place] [address] [place] [address] 08/24/2020 00:00:00 08/24/2020 11:51:52 [id number] [facility] [place] [address] [place] [address] 10/05/2020 00:00:00 10/18/2020 15:20:58 [id number] [facility] [place] [address] [place] [address] 01/26/2021 00:00:00 02/17/2021 09:25:47 [id number] [facility] [place] [address] [place] [address] 07/12/2021 00:00:00 07/18/2021 21:44:27 [id number] [facility] [place] [address] [place] [address] 01/10/2022 00:00:00 01/10/2022 10:17:33 [id number] [facility] [place] [address] [place] [address] 01/15/2022 00:00:00 01/15/2022 16:00:14 [id number] [facility] [place] [address] [place] [address] 01/24/2022 00:00:00 02/12/2022 21:20:55 [id number] [facility] [address] [facility] [facility] [address] [place] [address] 03/29/2022 00:00:00 04/19/2022 18:57:15 [id number] Elizabeth Manuel MD [facility] Primary Care [facility] [address] [place] [address] 08/21/2022 10:20:59 08/21/2022 11:11:05 Degeneration of cervical intervertebral disc 25109152 M50.30 seeing neurosurge ry after failing PT, meds, home traction Adult heal th examination 859114588 Z00.[address] Handy for paps and mammograms DEXA done with bdr 2022 Cologuard normal 06-01-2020 , repeat 2023 hold [id number] labs in December Screening for disorder 400707883 Z13.9 [id number] Elizabeth Manuel MD [facility] Primary Care [address] [place] [address] 02/18/2023 16:09:59 02/18/2023 16:50:22 Essential hypertension 00824625 I10 stable Hypothyroidism 43244706 E03.9 stable Hyperlipidemia 55459735 E78.5 Edema of l ower extremity 401324399 R60.0 likely a combo of htn, amlodipine and dependent edemareass urance givencompr ession stockings, elevation [id number] Elizabeth Manuel MD [facility] Primary Care [address] [place] [address] 08/28/2023 10:23:42 08/28/2023 10:58:23 Adult health examination 211859458 Z00.[address] Handy for paps and mammograms DEXA done with bdr ologu della normal 06-01-2020 , repeat ordered 2023Shingl es vaccine 12/08, 02/07Prevn ar 13 2016Pneumo vax 23 2017RSV 2024Covid boosters per cdc guidelineF valerie vaccine yearly Screening for disorder 684935070 Z13.9 Screening for malignant neoplasm of colon 909438027 Z12.11 Essential hypertension 00619658 I10 stable Hyperlipidemia 92734837 E78.5 stable Health Concerns Section Related Observation LastModified by Organization Detai ls LastModified Time None Recorded Concern Status LastModified by Organization Details LastModified Time None Recorded Advance Directives Directive None Recorded Payers Encounter Date Sequence Insurance Name Policy Number Policy Waldron Covered Member ID Waldron Member ID Guarantor Name 08/21/2022 1 [facility] (MEDICARE REPLACEMENT/A DVANTAGE - PPO) [id number] Óscar S Pasha [id number] Óscar S Pasha 02/18/2023 1 [facility] (MEDICARE REPLACEMENT/A DVANTAGE - PPO) [id number] Óscar S Pasha [id number] Óscar S Pasha 08/28/2023 1 [facility] (MEDICARE REPLACEMENT/A DVANTAGE - PPO) [id number] Óscar S Pasha [id number] Óscar S Pasha Notes Date Note Type Note Provider Name and Address Organization Details Recorded Time 08/21/2022 text/html here for shar s exam. She is dealing with neck pain. Has done pt, home traction, injections will meet with Dr. Gray to discuss spinal surgery Elizabeth Manuel MD [address], [place], [address], [employer] 09/18/2022 18:13:07 02/18/2023 text/html here for shar s exam. She is dealing with neck pain. Has done pt, home traction, injections will meet with Dr. Gray to discuss spinal surgery update 02/19/23: Since last appt she has undergone T1-T2 foraminotomy and feeling well. No syncopal episodes. No chest pain or sob. She does have edema in lower extremities that is better in AM and worse later in the day Elizabeth Manuel MD [address], [place], [address], [employer] 02/19/2023 09:46:46 08/28/2023 text/html here for shar s exam. No chest pain or sob, no syncopal episodes Elizabeth Manuel MD [address], [place], [address], [employer] 09/08/2023 12:50:30 OBGyn Episode No OBEpisode recorded.
--- OUTSIDE RECORDS SUMMARY | 2024-07-13 07:11 | XMS_ITS | Clinical Summary ---
Author Organization [facility] Address [address] [facility] [place] [address] Care Team Providers Care Ball Winder Name Role Phone Jess Bird MD Primary Care Provider [phone] Source Comments [facility],non-[facility] Affiliates and Associated Physician Practices is amultiple site organization consisting of ambulatory clinics and hospital sitesin [place], [place], [place] and [place]. This disclosure is being madepursuant to the Care Everywhere program and may not contain all information available regarding this patient. Last updated 18.[facility] [employer] Social History Tobacco Use Types Packs/Day Years Used Date Smoking Tobacco: Never Assessed Sex and Gender Information Value Date Recorded Sex Assigned at Not on file Gender Identity Not on file Sexual Orientation Not on file Last Filed Vital Signs Vital Sign Reading Time Taken Comments Blood Pressure 155/85 07/07/2015 8:56 AM CDT Pulse 80 07/07/2015 8:56 AM CDT Temperature 36.6 C (97.8 F) 07/07/2015 8:56 AM CDT Respiratory Rate - - Oxygen Saturation - - Inhaled Oxygen Concentration - - Weight 56.9 kg (125 lb 8 oz) 07/07/2015 8:56 AM CDT Height 162.6 cm (5' 4 ) 07/07/2015 8:56 AM CDT Body Mass Index 21.54 07/07/2015 8:56 AM CDT Plan of Treatment Health Maintenance Due Date Last Done Comments BONE DENSITY TESTING 1945 HEPATITIS C SCREENING 08/17/1964 DTAP/TDAP/TD VACCINES (1 - Tdap) 1965 PNEUMOCOCCAL VACCINE 50+ (1 of 1 - PCV) 1996 ZOSTER VACCINE (1 of 2) 1996 Respiratory Syncytial Virus (RSV) Vaccine Pt: or over 60 yrs (1 - 1-dose 75+ series) 2021 COVID-19 VACCINE (1 - 2023-2 5 season) 2023 INFLUENZA VACCINE (#1) 2023 DEPRESSION SCREENING 04/22/2024 MEDICARE AWV CALENDAR YEAR 2024 HEPATITIS B VACCINE Aged Out No longe r eligible based on patient's age to complete this topic HIB VACCINE Aged Out No longer eligi ble based on patient's age to complete this topic HPV VACCINE Aged Out No longer eligi ble based on patient's age to complete this topic MENINGOCOCCAL (Group B) VACC INE SHARED DECISION-MAKING Aged Out No longer eligibl e based on patient's age to complete this topic MENINGOCOCCAL GROUPS A/C/Y/W VACCINE Aged Out No longer eligible b ased on patient's age to complete this topic Care Teams Ball Winder Relationship Specialty Start Date End Date Jess Bird MD [address] [place] [phone] PCP - General 08/17/20
--- OUTSIDE RECORDS SUMMARY | 2024-07-13 07:11 | XMS_ITS | Clinical Summary ---
Author Organization [facility] [place] Address [address] [place] [address] Phone Care Team Providers Care Teacher'S Aide Name Role Phone Jess Bird MD Primary Care Provider [phone] Allergies No known active allergies Medications estradiol (ESTRACE) 2 mg tabletIndication s:Abnormal mammogram Take 2 mg by mouth daily. Active ergocalciferol (VITAMIN D2) 50,000 unit capsuleIndicatio ns:Abnormal mammogram Take 50,000 Units by mouth. Active cholecalciferol, Vitamin D3, (VITAMIN D3) 2,000 unit TabletIndication s:Abnormal mammogram Take by mouth daily. Active LEVOTHYROXINE SODIUM (SYNTHROID ORAL)Indications :Abnormal mammogram Take by mouth. Active ALENDRONATE SODIUM (ALENDRONATE ORAL)Indications :Abnormal mammogram Take by mouth. Active Active Problems Patient Care Coordination No te Formatting of this note migh t be different from the original. Primary Care: Jess Bird MD Referring Provider: Dorene Handy MD [address] [facility] [address] [place] [address] Other: Problem Noted Date Diagnosed Date Abnormal mammogram 12/25/2013 Graves disease Cervical cancer Overview (01/01/2014): mirco invasive cervical cancer Family History Medical History Relation Name Comments Heart Disease Father Cancer Paternal Grandfather bone ca ncer Relation Name Status Comments Father Paternal Grandfather Social History Tobacco Use Types Packs/Day Years Used Date Smoking Tobacco: Never Smokeless Tobacco: Never Alcohol Use Standard Drinks/Week Comments Yes 0 (1 standard drink = 0.6 oz pur e alcohol) rarely Comments No Sex and Gender Information Value Date Recorded Sex Assigned at Not on file Legal Sex Female 10:58 AM CDT Gender Identity Not on file Sexual Orientation Not on file Occupation Industry Job Start Date Job End Date Not on file Not on file Not on file Not on file Last Filed Vital Signs Vital Sign Reading Time Taken Comments Blood Pressure 188/106 01/01/2014 10:36 AM CDT Pulse 64 01/01/2014 10:36 AM CDT Temperature - - Respiratory Rate - - Oxygen Saturation - - Inhaled Oxygen Concentration - - Weight 57.4 kg (126 lb 9.6 oz) 01/01/2014 10:36 AM CDT Height 163.8 cm (5' 4.5 ) 01/01/2014 10:36 AM CD T Body Mass Index 21.4 01/01/2014 10:36 AM CDT Plan of Treatment Health Maintenance Due Date Last Done Comments DTAP/TDAP/TD VACCINES (1 - Tdap) 1965 PNEUMOCOCCAL VACCINE 50+ YEARS (1 of 1 - PCV) 08/22/18 97 ZOSTER VACCINE (1 of 2) 1996 OSTEOPOROSIS SCREENING 08/23/2011 RSV VACCINE (60+ or ) (1 - 1-dose 75+ series) 2021 INFLUENZA VACCINE (#1) [address] [place] [address] MEDICARE PART A AND B [employer] ACCESS/TRUE [facility] PPO Care Teams Teacher'S Aide Relationship Specialty Start Date End Date Jess Bird MD [address] [address] PCP - General 04/08/15
--- OUTSIDE RECORDS SUMMARY | 2024-07-13 07:11 | XMS_ITS | Clinical Summary ---
Author Organization [facility] Address [facility] [place] [address] Care Team Providers Care Wind Turbine Mechanical Engineer Name Role Phone Norm Nielson Primary Care Provider + Allergies No known active allergies Medications Cholecalciferol (VITAMIN D3) 50 MCG (2000 UT) Cap Take 2,000 Units by mouth daily. Active Probiotic Product (PROBIOTIC DAILY) Cap Take 1 tablet by mouth daily. Active levothyroxine 25 MCG tablet Take 25 mcg by mouth daily. 03/17/2019 Active amlodipine 5 MG tablet Take 5 tablets by mouth daily. 03/30/2019 Active lisinopril 40 MG tablet Take 40 mg by mouth daily. 4 02/12/2019 Active aspirin 325 MG tablet Take 325 mg by mouth daily. 03/15/2015 Active fish oil 1000 MG Cap capsule Take 1,000 mg by mouth daily. Active Active Problems Problem Noted Date Diagnosed Date History of cervical cancer 04/01/2019 Overview (04/01/2019): Overview: mirco invasive cervical cancer Graves disease 04/01/2019 Vitamin D deficiency 04/01/2019 Abnormal mammogram 12/25/2013 Hypothyroidism 09/05/2013 Overview (04/01/2019): Overview: HYPOTHYROIDISM NOS Last Assessment & Plan: Will check TSH and free T4 Will [...] 7 tabs have been taken. Send rx Hypertension Immunizations Name Administration Dates Next Due Fluzone High Dose - >Age 65 (Prefilled Syringe) 01/17/2017,01/04/2016,02/02/2015,2013 Influenza Adult (Generic) 12/31/2018,02/05/2018, 01/31/2015 Pneumococcal (Pneumovax 23) 07/18/2016 Pneumococcal (Prevnar 13) 06/30/2015 Shingrix 01/23/2019,11/21/2018 Zoster (Zostavax) [address]339 Unt/0.65Ml 04/22/2011 Family History Medical History Relation Comments Heart Disease Father Diabetes Mother Relation Status Comments Father Mother Social History Tobacco Use Types Packs/Day Years Used Date Smoking Tobacco: Never Smokeless Tobacco: Never Alcohol Use Standard Drinks/Week Comments Yes 0 (1 standard drink = 0.6 oz pur e alcohol) AUDIT-C Answer Date Recorded Frequency of Alcohol Consumption Monthly or less 04/01/2019 Average Number of Drinks 1 or 2 019 Frequency of Binge Drinking Never 03/22 PHQ-2 Answer Date Recorded PHQ-2 Score 0 04/01/2019 Comments Unknown Sex and Gender Information Value Date Recorded Sex Assigned at Not on file Legal Sex Female 1:15 PM COUPON COLLECTION CLERK Gender Identity Not on file Sexual Orientation Not on file Occupation Industry Job Start Date Job End Date Not on file Not on file Not on file Not on file Last Filed Vital Signs Vital Sign Reading Time Taken Comments Blood Pressure 168/82 04/01/2019 8:04 AM COUPON COLLECTION CLERK Pulse 73 04/01/2019 8:04 AM COUPON COLLECTION CLERK Temperature 37.1 C (98.8 F) 04/01/2019 8:04 AM COUPON COLLECTION CLERK Respiratory Rate 16 04/01/2019 8:04 AM COUPON COLLECTION CLERK Oxygen Saturation 97% 04/01/2019 8:04 AM COUPON COLLECTION CLERK Inhaled Oxygen Concentration - - Weight 55.8 kg (123 lb 2 oz) 04/01/2019 8:04 AM COUPON COLLECTION CLERK Height 163.8 cm (5' 4.5 ) 04/01/2019 8:04 AM COUPON COLLECTION CLERK Body Mass Index 20.81 04/01/2019 8:04 AM COUPON COLLECTION CLERK Plan of Treatment Health Maintenance Due Date Last Done Comments Hepatitis C 1963 DTaP, Tdap and Td Vaccines (1 - Tdap) 1965 Annual Medicare Wellness Visit 08/23/2011 Dexa Scan (General) 08/23/2011 RSV Immunization or 60+ Years (1 - 1-dose 75+ series) 2021 COVID-19 Vaccine ( - season) 2023 Influenza Adult (#1) 2024 12/31/2018, 02/05/2018, 01/17/2017, Additional history exists Pneumococcal Vaccine: 65+ Years Completed 07/18/2016, 06/30/2015 Zoster Vaccines Completed 01/23/2019, 05/2018, 04/22/2011 Meningococcal B Vaccine Aged Out No l onger eligible based on patient's age to complete this topic Meningococcal Vaccine Aged Out No laura kevin eligible based on patient's age to complete this topic RSV Immunizations Under 20 Months Aged Out No longer eligible based on patient's age to complete this topic Insurance Care Teams Wind Turbine Mechanical Engineer Relationship Specialty Start Date End Date Norm Nielson DO [address] [place] [id number] PCP - General FAMILY PRACTICE 03/10/19
== END 2024-07-13 07:09 | disposition home or self-care (01) ==
PROVIDERS: Visit Provider Nurse Practitioner
DX: R74.8 Abnormal levels of other serum enzymes (principal); R53.83 Other fatigue; E05.00 Thyrotoxicosis with diffuse goiter without thyrotoxic crisis or storm
CPT/HCPCS: 76705

== ENCOUNTER 2024-07-22 07:31 | Outpatient (CLI) | payer MEDICARE, SELFPAY ==
--- OUTSIDE RECORDS SUMMARY | 2024-07-22 07:35 | XMS_ITS | Continuity of Care Document ---
Author Organization [facility] Address [address] [place] [address] Phone Care Team Providers Care Quality Measurement Specialist Name Role Phone Doisy, Edward Unavailable Unavailable Advance Directives Directive Yes / No Effective Date File Name No Information Encounters Encounter Description Practice Location Reason(s) For Visit Diagnoses Date Provider Providers Copied on Encounter [facility], [address], [place], [place], [id number], [place] tel:[phone] [facility] No Information [address] Edward. [address] , [address], [place], [address], [place]. tel:[phone] Family History Family Member Type Diagnosis Age At Onset No Information Payers Payer name Insurance type Covered constitution party ID Authoriza tion(s) No Information Social History [...]
--- OUTSIDE RECORDS SUMMARY | 2024-07-22 07:35 | XMS_ITS | Clinical Summary ---
Author Organization [facility] Address [address] [facility] [place] [address] Care Team Providers Care Director Of Curriculum And Instruction Name Role Phone Jess Bird MD Primary Care Provider Source Comments [facility] Affiliates and Associated Physician Practices is amultiple site organization consisting of ambulatory clinics and hospital sitesin [place], [place], [place] and [place]. This disclosure is being madepursuant to the Care Everywhere program and may not contain all information available regarding this patient. Last updated 18.[facility] [employer] Social History Tobacco Use Types Packs/Day Years [...] age to complete this topic Care Teams Director Of Curriculum And Instruction Relationship Specialty Start Date End Date Jess Bird MD [address] [place] [phone] PCP - General 08/17/20
--- OUTSIDE RECORDS SUMMARY | 2024-07-22 07:35 | XMS_ITS | Clinical Summary ---
Author Organization [facility] [place] Address [address] [place] [address] Phone Care Team Providers Care Pick Up And Delivery Driver Name Role Phone Jess Bird MD Primary Care Provider [phone] Allergies No known active allergies Medications estradiol [...] Provider: Dorene Handy MD [address] [facility] [address] [place] [address] Other: Problem Noted Date Diagnosed Date Abnormal [...] 2021 INFLUENZA VACCINE (#1) [address] [place] [address] MEDICARE PART A AND B [employer] ACCESS/TRUE [employer] PPO Care Teams Pick Up And Delivery Driver Relationship Specialty Start Date End Date Jess Bird MD [address] [address] PCP - General 04/08/15
--- OUTSIDE RECORDS SUMMARY | 2024-07-22 07:35 | XMS_ITS | Encounter Summary ---
Author Organization [facility] Address [address] [place] [address] Care Team Providers Care Hand Spray Operator Name Role Phone Devora Olguin MD Primary Care Provider Encounter Details Date Type Department Care Team (Late st Contact Info) Description 07/12/2024 Results Follow-Up [facility] Medical [facility] Cardiology [address] [facility] [address], [place] [phone] [place] [address] [place] [address] [address] [place], [place] [id number] Social History Tobacco Use Types Packs/Day Years [...] on file Legal Sex Female 10:53 AM DROP HAMMER 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
--- OUTSIDE RECORDS SUMMARY | 2024-07-22 07:35 | XMS_ITS | Data Portability ---
Author Organization [place] - [facility] jigl, Main Office Address [address] [place] [address] Assessment No assessment recorded. Plan of Treatment Reminders Order Date Submit Date Provider Last Modified By Organization Details Last Modified Time Details Appointments None recorded. Lab noninvasive colorectal cancer DNA + occult blood screening, QL, stool 2023 024 [email or web address] [employer] (Cologuard Orders Only), [address], [address], [place], [address], 4 08:56:17 CBC w/ auto diff 2022 [...] 2023 024 BETINA [facility], [facility] [address], [place] [address], [place], [place], [id number], 10:55:07 Patient TargetsNo targets recorded. Patient Instructions Encounter Date Encounter Id Patient Instructions Last Modified By Organization Details Last Modified Time 08/21/2022 [id number] dementia rating scale-2* [email or web address] Not available 08/21/2022 [...] treatment plan Not available 09/18/2022 18:12:53 08/28/2023 [id number] dementia rating scale-2* Not available 08/28/2023 13:40:05 Personalized Hea lth [...] /MS is recom jaye d: order code 54900 (mitul ents >2yrs ). See Note 1 Note 1 For addit ional infor stephanie lizama e refer to http: //myriam michelle.Que stDia gnost ics.c om/fa q/FAQ 199 (This link is being provi ded for infor matio nal/ educa jun l purpo ses only. ) Not Available [employer] [address], [address], 01/11/2022 07:20:38 01/11/20 22 01/11/2022 VITAM IN [...] pg/mL will have sympt oms. Not Available [employer] [address], [address], 01/11/2022 07:20:37 01/11/20 22 01/11/2022 VITAM IN B12/F OLATE , SERUM PANEL folate, serum 13.5 NG/mL normal Refer ence Range Low: <3.4 Borde rline : 3.4-5 .4 Guera l: >5.4 Not Available [employer] [address], [address], 01/11/2022 07:20:37 01/11/20 22 01/11/2022 CBC (INCL UDES DIFF/ PLT) white blood cell count 5.3 thous and/u L 3.8-10 .8 normal Not Available [facility] [address], [address], 01/11/2022 07:20:37 01/11/2001/11/2022 CBC (INCL UDES DIFF/ PLT) red blood cell count 3.96 eddi on/uL 3.80-5 .10 normal Not Available [employer] [address], [address], 01/11/2022 07:20:37 01/11/20 22 01/11/2022 CBC (INCL UDES DIFF/ PLT) hemoglobin 11.9 g/dL 11.7-1 5.5 normal Not Available [address], [address], 01/11/2022 07:20:37 01/11/20 22 01/11/2022 CBC (INCL UDES DIFF/ PLT) hematocrit 37.0 % 35.0-4 5.0 normal Not Available [address], [address], 01/11/2022 07:20:37 01/11/2001/11/2022 CBC (INCL UDES DIFF/ PLT) MCV 93.4 fL 80.0-1 00.0 normal Not Available [address], [address], 01/11/2022 07:20:37 01/11/20 22 01/11/2022 CBC (INCL UDES DIFF/ PLT) MCH 30.1 pg 27.0-3 3.0 normal Not Available [address], [address], 01/11/2022 07:20:37 01/11/20 22 01/11/2022 CBC (INCL UDES DIFF/ PLT) MCHC 32.2 g/dL 32.0-3 6.0 normal Not Available [address], [address], 01/11/2022 07:20:37 01/11/2001/11/2022 CBC (INCL UDES DIFF/ PLT) RDW 11.8 % 11.0-1 5.0 normal Not Available [address], [address], 01/11/2022 07:20:37 01/11/20 22 01/11/2022 CBC (INCL UDES DIFF/ PLT) platelet count 176 thous and/u L 140-40 0 normal Not Available [address], [address], 01/11/2022 07:20:37 01/11/20 22 01/11/2022 CBC (INCL UDES DIFF/ PLT) MPV 9.8 fL 7.5-12 .5 normal Not Available [address], [address], 01/11/2022 07:20:37 01/11/20 22 01/11/2022 CBC (INCL UDES DIFF/ PLT) absolute neutrophils 3535 cells /uL 1500-7 800 normal Not Available [address], [address], 01/11/2022 07:20:37 01/11/20 22 01/11/2022 CBC (INCL UDES DIFF/ PLT) absolute lymphocytes 843 cells /uL 850-39 00 low Not Available [address], [address], 01/11/2022 07:20:37 01/11/20 22 01/11/2022 CBC (INCL UDES DIFF/ PLT) absolute monocytes 604 cells /uL 200-95 0 normal Not Available [address], [address], 01/11/2022 07:20:37 01/11/20 22 01/11/2022 CBC (INCL UDES DIFF/ PLT) absolute eosinophils 270 cells /uL 15-500 normal Not Available [address], [address], 01/11/2022 07:20:37 01/11/20 22 01/11/2022 CBC (INCL UDES DIFF/ PLT) absolute basophils 48 cells /uL 0-200 normal Not Available [address], [address], 01/11/2022 07:20:37 01/11/20 22 01/11/2022 CBC (INCL UDES DIFF/ PLT) neutrophils 66.7 % normal Not Available [address], [address], 01/11/2022 07:20:37 01/11/20 22 01/11/2022 CBC (INCL UDES DIFF/ PLT) lymphocytes 15.9 % normal Not Available [address], [address], 01/11/2022 07:20:37 01/11/20 22 01/11/2022 CBC (INCL UDES DIFF/ PLT) monocytes 11.4 % normal Not Available [address], [address], 01/11/2022 07:20:37 01/11/20 22 01/11/2022 CBC (INCL UDES DIFF/ PLT) eosinophils 5.1 % normal Not Available [address], [address], 01/11/2022 07:20:37 01/11/20 22 01/11/2022 CBC (INCL UDES DIFF/ PLT) basophils 0.9 % normal Not Available [address], [address], 01/11/2022 07:20:37 01/11/20 22 01/11/2022 BASIC METAB OLIC PANEL creatinine 0.82 mg/dL 0.60-1 .00 normal Not Available [facility] [address], [address], 01/11/2022 07:20:36 01/11/20 22 01/11/2022 BASIC METAB OLIC PANEL glucose 84 mg/dL 65-99 normal Fasti ng refer ence inter miryam Not Available [address], [address], 01/11/2022 07:20:36 01/11/20 22 01/11/2022 BASIC METAB OLIC PANEL urea nitrogen (BUN) 20 mg/dL 7-25 normal Not Available [address], [address], 01/11/2022 07:20:36 01/11/20 22 01/11/2022 BASIC METAB [...] kdoqi /gfr% 5Fcal culat or Not Available [place] [address] [place], [address], 01/11/2022 07:20:36 01/11/20 22 01/11/2022 BASIC METAB OLIC PANEL BUN/creatini ne ratio not applic able (calc ) 6-22 Not Available [place] [address] [place], [address], 01/11/2022 07:20:36 01/11/20 22 01/11/2022 BASIC METAB OLIC PANEL sodium 143 mmol/ L 135-14 6 normal Not Available [address], [address], 01/11/2022 07:20:36 01/11/20 22 01/11/2022 BASIC METAB OLIC PANEL potassium 4.3 mmol/ L 3.5-5. 3 normal Not Available [place] [address] [place], [address], 01/11/2022 07:20:36 01/11/20 22 01/11/2022 BASIC METAB OLIC PANEL chloride 109 mmol/ L 98-110 normal Not Available [place] [address] [place], [address], 01/11/2022 07:20:36 01/11/20 22 01/11/2022 BASIC METAB OLIC PANEL carbon dioxide 28 mmol/ L 20-32 normal Not Available [address], [address], 01/11/2022 07:20:36 01/11/20 22 01/11/2022 BASIC METAB OLIC PANEL calcium 9.3 mg/dL 8.6-10 .4 normal Not Available [address], [address], 01/11/2022 07:20:36 01/11/20 22 01/11/2022 TSH+F REE T4 TSH 3.15 mIU/L 0.40-4 .50 normal Not Available [address], [address], 01/11/2022 07:20:35 01/11/20 22 01/11/2022 TSH+F REE T4 T4, free 1.2 NG/dL 0.8-1. 8 normal Not Available [address], [address], 01/11/2022 07:20:35 03/21/20 22 03/22/2022 VITAM IN B12 vitamin B12 948 pg/mL 200-11 00 normal Not Available [address], [address], 03/22/2022 18:34:17 03/21/20 22 03/22/2022 FOLAT E, SERUM folate, serum 20.7 NG/mL normal Refer ence Range Low: <3.4 Borde rline : 3.4-5 .4 Guera l: >5.4 Not Available [address], [address], 03/22/2022 18:34:17 06/28/19 23 06/28/2022 FOLAT E, SERUM folate, serum 21.3 NG/mL normal Refer ence Range Low: <3.4 Borde rline : 3.4-5 .4 Guera l: >5.4 Not Available [address], [address], 06/28/2022 03:09:16 06/28/19 23 06/28/2022 VITAM IN B12 vitamin B12 1071 pg/mL 200-11 00 normal Not Available [address], [address], 06/28/2022 03:09:17 03/11/20 23 03/12/2023 LIPID PANEL , STAND DELLA cholesterol, total 150 mg/dL <200 normal Not Available [address], [address], 03/12/2023 05:04:38 03/11/20 23 03/12/2023 LIPID PANEL , STAND DELLA HDL cholesterol 64 mg/dL > or = 50 normal Not Available [address], [address], 03/12/2023 05:04:38 03/11/20 23 03/12/2023 LIPID PANEL , STAND DELLA triglyceride s 84 mg/dL <150 normal Not Available [address], [address], 03/12/2023 05:04:38 03/11/20 23 03/12/2023 LIPID PANEL [...] 310(1 9): 2061- 2068 (http ://ed ucati on.[employer] raynaBitInstant. Rexter/f aq/FA Q164) Not Available [address], [address], 03/12/2023 05:04:38 03/11/20 23 03/12/2023 LIPID PANEL , STAND DELLA chol/HDLC ratio 2.3 (calc ) <5.0 normal Not Available [address], [address], 03/12/2023 05:04:38 03/11/20 23 03/12/2023 LIPID PANEL , STAND DELLA non HDL cholesterol 86 mg/dL _(gabriella c) <130 normal For patie nts with diabe kathia plus 1 major ASCVD risk facto r, treat ing to a non-H DL-C goal of <100 mg/dL (LDL- C of <70 mg/dL ) is consi dered a thera pewilmer c salmao n. Not Available [address], [address], 03/12/2023 05:04:38 03/11/20 23 03/12/2023 BASIC METAB OLIC PANEL glucose 93 mg/dL 65-99 normal Fasti ng refer ence inter miryam Not Available [place] [address] [place], [address], 03/12/2023 05:04:39 03/11/20 23 03/12/2023 BASIC METAB OLIC PANEL urea nitrogen (BUN) 19 mg/dL 7-25 normal Not Available [employer] [address], [address], 03/12/2023 05:04:39 03/11/20 23 03/12/2023 BASIC METAB OLIC PANEL creatinine 0.80 mg/dL 0.60-1 .00 normal Not Available [address], [address], 03/12/2023 05:04:39 03/11/20 23 03/12/2023 BASIC METAB OLIC PANEL eGFR 76 mL/mi n/1.7 3m2 > or = 60 normal Not Available [address], [address], 03/12/2023 05:04:39 03/11/20 23 03/12/2023 BASIC METAB OLIC PANEL BUN/creatini ne ratio SEE NOTE: (calc ) 6-22 Not Repor thiago: BUN and Creat inine are withi n refer ence range . Not Available [address], [address], 03/12/2023 05:04:39 03/11/20 23 03/12/2023 BASIC METAB OLIC PANEL sodium 141 mmol/ L 135-14 6 normal Not Available [address], [address], 03/12/2023 05:04:39 03/11/20 23 03/12/2023 BASIC METAB OLIC PANEL potassium 4.3 mmol/ L 3.5-5. 3 normal Not Available [address], [address], 03/12/2023 05:04:39 03/11/20 23 03/12/2023 BASIC METAB OLIC PANEL chloride 108 mmol/ L 98-110 normal Not Available [address] [place], [address], 03/12/2023 05:04:39 03/11/20 23 03/12/2023 BASIC METAB OLIC PANEL carbon dioxide 27 mmol/ L 20-32 normal Not Available [address], [address], 03/12/2023 05:04:39 03/11/20 23 03/12/2023 BASIC METAB OLIC PANEL calcium 8.9 mg/dL 8.6-10 .4 normal Not Available [address], [address], 03/12/2023 05:04:39 03/11/20 23 03/12/2023 HEPAT IC FUNCT ION PANEL protein, total 6.0 g/dL 6.1-8. 1 low Not Available [address], [address], 03/12/2023 05:04:40 03/11/20 23 03/12/2023 HEPAT IC FUNCT ION PANEL albumin 3.8 g/dL 3.6-5. 1 normal Not Available [address], [address], 03/12/2023 05:04:40 03/11/20 23 03/12/2023 HEPAT IC FUNCT ION PANEL globulin 2.2 g/dL_ (calc ) 1.9-3. 7 normal Not Available [address], [address], 03/12/2023 05:04:40 03/11/20 23 03/12/2023 HEPAT IC FUNCT ION PANEL albumin/glob ulin ratio 1.7 (calc ) 1.0-2. 5 normal Not Available [address], [address], 03/12/2023 05:04:40 03/11/20 23 03/12/2023 HEPAT IC FUNCT ION PANEL bilirubin, total 0.5 mg/dL 0.2-1. 2 normal Not Available [address], [address], 03/12/2023 05:04:40 03/11/20 23 03/12/2023 HEPAT IC FUNCT ION PANEL bilirubin, direct 0.1 mg/dL < or = 0.2 normal Not Available [address], [address], 03/12/2023 05:04:40 03/11/20 23 03/12/2023 HEPAT IC FUNCT ION PANEL bilirubin, indirect 0.4 mg/dL _(gabriella c) 0.2-1. 2 normal Not Available [facility] [employer] [address], [address], 03/12/2023 05:04:40 03/11/20 23 03/12/2023 HEPAT IC FUNCT ION PANEL alkaline phosphatase 189 U/L 37-153 high Not Available [facility] [employer] [address], [address], 03/12/2023 05:04:40 03/11/20 23 03/12/2023 HEPAT IC FUNCT ION PANEL AST 34 U/L 10-35 normal Not Available [address], [address], 03/12/2023 05:04:40 03/11/20 23 03/12/2023 HEPAT IC FUNCT ION PANEL ALT 30 U/L 6-29 high Not Available [employer] [address], [address], 03/12/2023 05:04:40 03/11/20 23 03/12/2023 CBC (INCL UDES DIFF/ PLT) white blood cell count 4.1 thous and/u L 3.8-10 .8 normal Not Available [employer] [address], [address], 03/12/2023 05:04:41 03/11/20 23 03/12/2023 CBC (INCL UDES DIFF/ PLT) red blood cell count 3.76 eddi on/uL 3.80-5 .10 low Not Available [employer] [address], [address], 03/12/2023 05:04:41 03/11/20 23 03/12/2023 CBC (INCL UDES DIFF/ PLT) hemoglobin 11.8 g/dL 11.7-1 5.5 normal Not Available [address], [address], 03/12/2023 05:04:41 03/11/20 23 03/12/2023 CBC (INCL UDES DIFF/ PLT) hematocrit 35.5 % 35.0-4 5.0 normal Not Available [address], [address], 03/12/2023 05:04:41 03/11/20 23 03/12/2023 CBC (INCL UDES DIFF/ PLT) MCV 94.4 fL 80.0-1 00.0 normal Not Available [address], [address], 03/12/2023 05:04:41 03/11/20 23 03/12/2023 CBC (INCL UDES DIFF/ PLT) MCH 31.4 pg 27.0-3 3.0 normal Not Available [address], [address], 03/12/2023 05:04:41 03/11/20 23 03/12/2023 CBC (INCL UDES DIFF/ PLT) MCHC 33.2 g/dL 32.0-3 6.0 normal Not Available [address], [address], 03/12/2023 05:04:41 03/11/20 23 03/12/2023 CBC (INCL UDES DIFF/ PLT) RDW 11.8 % 11.0-1 5.0 normal Not Available [address], [address], 03/12/2023 05:04:41 03/11/20 23 03/12/2023 CBC (INCL UDES DIFF/ PLT) platelet count 168 thous and/u L 140-40 0 normal Not Available [address], [address], 03/12/2023 05:04:41 03/11/20 23 03/12/2023 CBC (INCL UDES DIFF/ PLT) MPV 10.1 fL 7.5-12 .5 normal Not Available [address], [address], 03/12/2023 05:04:41 03/11/20 23 03/12/2023 CBC (INCL UDES DIFF/ PLT) absolute neutrophils 2169 cells /uL 1500-7 800 normal Not Available [address], [address], 03/12/2023 05:04:41 03/11/20 23 03/12/2023 CBC (INCL UDES DIFF/ PLT) absolute lymphocytes 1111 cells /uL 850-39 00 normal Not Available [address], [address], 03/12/2023 05:04:41 03/11/20 23 03/12/2023 CBC (INCL UDES DIFF/ PLT) absolute monocytes 574 cells /uL 200-95 0 normal Not Available [address], [address], 03/12/2023 05:04:41 03/11/20 23 03/12/2023 CBC (INCL UDES DIFF/ PLT) absolute eosinophils 197 cells /uL 15-500 normal Not Available [address], [address], 03/12/2023 05:04:41 03/11/20 23 03/12/2023 CBC (INCL UDES DIFF/ PLT) absolute basophils 49 cells /uL 0-200 normal Not Available [address], [address], 03/12/2023 05:04:41 03/11/20 23 03/12/2023 CBC (INCL UDES DIFF/ PLT) neutrophils 52.9 % normal Not Available [address], [address], 03/12/2023 05:04:41 03/11/20 23 03/12/2023 CBC (INCL UDES DIFF/ PLT) lymphocytes 27.1 % normal Not Available [address], [address], 03/12/2023 05:04:41 03/11/20 23 03/12/2023 CBC (INCL UDES DIFF/ PLT) monocytes 14.0 % normal Not Available [address], [address], 03/12/2023 05:04:41 03/11/20 23 03/12/2023 CBC (INCL UDES DIFF/ PLT) eosinophils 4.8 % normal Not Available [facility] [address], [address], 03/12/2023 05:04:41 03/11/20 23 03/12/2023 CBC (INCL UDES DIFF/ PLT) basophils 1.2 % normal Not Available [address], [address], 03/12/2023 05:04:41 03/11/20 23 03/12/2023 T4, FREE T4, free 1.0 NG/dL 0.8-1. 8 normal Not Available [address], [address], 03/12/2023 05:04:42 03/11/20 23 03/12/2023 TSH TSH 5.12 mIU/L 0.40-4 .50 high Not Available [address], [address], 03/12/2023 05:04:43 07/10/19 24 07/11/2023 T4, FREE T4, free 1.2 NG/dL 0.8-1. 8 normal Not Available [address], [address], 07/11/2023 06:01:16 07/10/19 24 07/11/2023 TSH TSH 2.42 mIU/L 0.40-4 .50 normal Not Available Owned it [facility] [address] [place], [address], 07/11/2023 06:01:17 09/10/19 24 09/10/2023 COLOG UARD [...] of 10,00 0 indiv idual s at [facility] risk for color ectal cance [...] asymp tomat ic indiv idual s at [facility] risk for color ectal cance [...] 112:1 016-1 030. TEST DESCR IPTIO N: Alvord site algor ithmi c jonathon sis of [...] years or older , who are at [facility] for color ectal cance r (CRC) . Colog uard has been appro maycol for use by the U.[place]. FDA. The perfo rmanc e of Colog uard was estab lishe d in a cross secti onal study of [facility] adult s aged 50-84 . Colog [...] at www.c robbin kangd.c om. Not Available [employer] (Cologuard Orders Only) [address], [place], [address], 09/23/2023 20:53:06 01/17/20 22 01/16/2022 US, doppl er, venou s No observ ation record ed. [id number], [address], 06/20/2022 01:33:19 05/22/19 23 05/22/2022 MAMMO , teresa gputa, digit al, bilat eral No observ ation record ed. [id number] [place], [address], 06/20/2022 01:33:19 06/01/19 23 06/01/2022 XR, cervi gabriella spine No observ ation record ed. [id number], [place], [address], 06/20/2022 01:33:19 06/01/19 23 06/01/2022 CT, cervi gabriella spine , w/o contr ast No observ ation record ed. [id number], [place], [address], 06/20/2022 01:33:19 08/21/19 23 08/20/2022 DEXA No observ ation record ed. [address], [address], 08/21/2022 08:08:57 07/16/19 24 07/16/2023 MAMMO , scree candy, bilat eral No observ ation record ed. [address] [facility], [place], [address], 08/28/2023 10:37:50 Result Notes None recorded. Problems Name Problem SNOMED Code Status Onset Date Resolution Date Notes Provider Name and Address Organization Details Recorded Time Acute sinusitis 65323930 Active Not Available [employer] 4 09:14:42 Pain in throat 379363056 Active Not Available [facility] 4 09:14:42 Cerebrovas cular accident 108334953 Completed Not Available [facility] 3 01:11:19 Gastroesop hageal reflux disease 365011598 Active Not Available [facility] 4 09:14:42 Transient cerebral ischemia 570443379 Active 5 Not Available [facility] 4 09:14:42 Sinusitis 47845450 Active Not Available [facility] 4 09:14:42 Primary malignant neoplasm of uterine cervix 107512315 Active s/p hyst Not Available [facility] 4 09:14:42 Hypertensi ve disorder 99655715 Active Not Available [facility] 4 09:14:42 Upper respirator y infection 86741071 Active Not Available [facility] 4 09:14:42 Nasal congestion 89928846 Active Not Available [facility] 4 09:14:42 Posterior rhinorrhea 81563306 Active Not Available [facility] 4 09:14:42 Fatigue 72682715 Active Not Available [facility] 4 09:14:42 Seizure 84141264 Active 2021 Not Available [facility] 4 09:14:42 Degenerati on of cervical interverte bral disc 18294312 Active 2022 Not Available [facility] 4 09:14:42 Essential hypertensi on 67893296 Active 2022 Not Available [facility] 4 09:14:42 Hypothyroi dism 28790279 Active 2022 Not Available [facility] 4 09:14:42 Hyperlipid emia 45599946 Active 2022 Not Available [facility] 4 09:14:42 Edema of lower extremity 412110668 Active 2022 Not Available [facility] 4 09:14:42 Problem Notes None recorded. Procedures Surgical History Date Name Laterality Status Provider Name and Address Organization Details Recorded Time 4 Medicare Wellness CPT Code, subsequent completed Zulma Liu RN [facility] [employer] [facility] 08/28/2023 10:26:50 3 Medicare Wellness CPT Code, subsequent completed DONNIE Clark Rosa OR [employer] [facility] 08/21/2022 10:28:05 3 Medicare Wellness CPT Code, Initial completed [facility] [employer] [facility] 08/21/2022 10:28:07 Imaging Results Imaging Date Name Status LastModified by Organiz ation Details LastModified Time 06/01/2022 XR, cervical spine completed [id number] [address] [place] [address] [place] [address], [address], 06/20/2022 01:33:19 05/22/2022 MAMMO, screening, digital, bilateral completed [id number] [address] [place] [address], [place], [address], 06/20/2022 01:33:19 06/01/2022 CT, cervical spine, w/o contrast completed [id number] [address] [place] [address], [place], [address], 06/20/2022 01:33:19 01/16/2022 US, doppler, venous completed [id number] [address] [place] [address], [place], [address], 06/20/2022 01:33:19 08/20/2022 DEXA completed [address], [address], 08/21/2022 08:08:57 07/16/2023 MAMMO, screening, bilateral completed [address], [address], 08/28/2023 10:37:50 Procedure Notes None recorded. Medical Equipment None Reported. Allergies Allergen ID Allergen Name Allergen Category Reaction Reaction Severity Criticality Documentation Date Start Date Code Code System Note Provider Name and Address Organization Details Recorded Time 2702 Augmentin medicatio n Not available Not available Not available 06/20/2022 50233 2 RxNorm c-dif f Not Available [facility] 01:32:21 Medications Name Sig Start Date Stop [...] e 50 mcg/actua tion nasal spray,jere pension Nebo 1 spray every day by intranas al [...] Not Available Not Available No t Available [employer] [place] 1.5 billion cell capsule Take 1 capsule [...] Not Available No t Available Fluad Quad 5507-5497 (65yr up)(PF) 60 mcg (15 mcg x [...] % 98 % 74 /min 97.9 [degF] 97288.0 5 g 152 mm[Hg] 88 mm[Hg] Not Available [facility] 3 01:07:08 Date Recorded Body mass index (BMI) Body height Oxygen saturation Oxygen saturation in Arterial blood by Pulse oximetry Heart rate Body temperature Body weight Systolic blood pressure Diastolic blood pressure Provider Name and Address Organization Details Last Updated DateTime 2 21.6 kg/m2 162.56 cm 98 % 98 % 81 /min 97.7 [degF] 81701.6 4 g 130 mm[Hg] 80 mm[Hg] Not Available [facility] 3 01:07:09 Date Recorded Body height Body mass index (BMI) Body weight Body temperature Heart rate Oxygen saturation Oxygen saturation in Arterial blood by Pulse oximetry Systolic blood pressure Diastolic blood pressure Provider Name and Address Organization Details Last Updated DateTime 3 162.56 cm 21.1 kg/m2 52582.8 6 g 97.3 [degF] 72 /min 97 % 97 % 100 mm[Hg] 71 mm[Hg] Jacquie Brewer MA [place] [facility] [employer] 3 10:30:51 Date Recorded Body height Body mass index (BMI) Body weight Body temperature Heart rate Provider Name and Address Organization Details Last Updated DateTime 02/18/2023 162.56 cm 21.3 kg/m2 48256.45 g 97.6 [degF] 76 /min Zulma Liu RN [facility] [employer] [facility] 3 16:19:12 Date Recorded Systolic blood pressure Diastolic blood pressure Provider Name and Address Organization Details Last Updated DateTime 02/18/2023 138 mm[Hg] 82 mm[Hg] Elizabeth Manuel MD [address] [facility], [facility] [address], [place], [address], [facility] [employer] [facility] 02/18/2023 16:45:14 Date Recorded Body height Body mass index (BMI) Body weight Body temperature Heart rate Oxygen saturation Oxygen saturation in Arterial blood by Pulse oximetry Systolic blood pressure Diastolic blood pressure Provider Name and Address Organization Details Last Updated DateTime 162.56 cm 21.1 kg/m2 77085.8 6 g 98 [degF] 90 /min 96 % 96 % 136 mm[Hg] 78 mm[Hg] Zulma Liu RN [facility] [employer] [facility] 10:29:13 Social History Question Answer Notes LastModified by Organizat ion Details LastModified Time Tobacco Smoking Status Never Smoker Not Available [facility] 06/20/2022 00:53:50 What Is Your Level Of Alcohol Consumption? None [id number] Information not available 06/20/2022 What Is Your Level Of Caffeine Consumption? Moderate [id number] Information not available 06/20/2022 How Much Tobacco Do You Chew? None [id number] Information not available 06/20/2022 What Type Of Diet Are You Following? REGULAR [id number] Information not available 06/20/2022 Do You Or Have You Ever Used E-cigarettes Or Vape? Never Used Electronic Cigarettes [id number] Information not available 06/20/2022 What Is Your Occupation? Retired [id number] Information not available 06/20/2022 What Was The Date Of Your Most Recent Tobacco Screening? 08/28/2023 Information not available 08/28/2023 Do You Or Have You Ever Used Smokeless Tobacco? Never Used Smokeless Tobacco [id number] Information not available 06/20/2022 How Much Tobacco Do You Smoke? No [id number] Information not available 06/20/2022 Do You Use Any Illicit Or Recreational Drugs? No [email or web address] Information not available 08/21/2022 Do You Or Have You Ever Used Any Other Forms Of Tobacco Or Nicotine? No [email or web address] Information not available 08/21/2022 Sex: Unknown Functional Status Question Answer Note LastModified by Organizat ion Details LastModified Time What is your exercise level? Moderate [id number] Information not available 06/20/2022 Mental Status [...] MUMPS N FEMALE PROBLEMS / INFECTIONS N BOWEL PROBLEMS N DEPRESSION (INCLUDING POST ) N STROKE/TIA N THYROID DISEASE N ULCERS [...] INSOMNIA N HIGH CHOLESTEROL / HYPERLIPIDEMIA N EYE PROBLEMS N HYPERTHYROIDISM N EATING DISORDER N EDEMA N CHRONIC PAIN SYNDROME N CONSTIPATION N CAROTID BLOCKAGE N BACK / NECK PROBLEMS N HAVE YOU BEEN HOSPITALIZED OR SEEN IN [facility] IN THE PAST YEAR ? N [...] DISORDER N ALZHEIMER'S DISEASE N PAIN N DEMENTIA N HERPES N SEIZURES/EPILEPSY N HEADACHES/MIGRAINES N VASCULAR DISEASE N PACEMAKER N DIZZINESS N HEART DISEASE/HEART PROBLEMS N KIDNEY DISEASE N SCARLET FEVER N MULTIPLE SCLEROSIS N DEVELOPMENTAL OR BEHAVIORAL DISORDERS N MENTAL DISORDER/ILLNESS N CANCER: SPECIFY N CARDIAC ARRHYTHMIA N PNEUMONIA N ATRIAL FIBRILLATION N Gall Stones N PULMONARY EMBOLISM N AUTOIMMUNE DISEASE N [...] Zohra Fernandez RN null, [place] - S jigl 06/21/2023 16:04:52 COVID-19, mRNA, LNP-S, bivalent, PF, 30 mcg/0.3 mL dose 2 completed Not Available [facility] 05/31/2023 06:23:31 pneumococcal polysaccharide PPV23 7 completed Not Available [facility] 05/31/2023 06:23:31 Pneumococcal conjugate PCV 13 6 completed Not Available [facility] 05/31/2023 06:23:31 Influenza, split virus, trivalent, preservative 5 completed Not Available [facility] 05/31/2023 06:23:31 Influenza, split virus, trivalent, preservative 4 completed Not Available [facility] 05/31/2023 06:23:31 zoster live 2 completed Not Available [facility] 05/31/2023 06:23:31 Influenza, high-dose, quadrivalent, PF 2 completed Not Available [facility] 05/31/2023 06:23:31 Past Encounters Encounter ID Performer Location Encounter Start Date Encounter Closed Date Diagnosis/Indication Diagnosis SNOMED-CT Code Diagnosis ICD10 Code Diagnosis Note [id number] [facility] [place] [address] [place] [address] 06/23/2020 00:00:00 07/13/2020 18:06:58 [id number] [facility] [place] [address] [place] [address] 08/10/2020 00:00:00 08/10/2020 13:21:51 [id number] [facility] [place] [address] [place] [address] 08/24/2020 00:00:00 08/24/2020 11:51:52 [id number] [facility] [place] [address] [place] [address] 10/05/2020 00:00:00 10/18/2020 15:20:58 [id number] [facility] [place] [address] [place] [address] 01/26/2021 00:00:00 02/17/2021 09:25:47 [id number] [facility] [place] [address] [place] [address] 07/12/2021 00:00:00 07/18/2021 21:44:27 [id number] [facility] [place] [address] [place] [address] 01/10/2022 00:00:00 01/10/2022 10:17:33 [id number] [facility] [place] [address] [place] [address] 01/15/2022 00:00:00 01/15/2022 16:00:14 [id number] [facility] [place] [address] [place] [address] 01/24/2022 00:00:00 02/12/2022 21:20:55 [id number] [facility] [address] [facility] [address] [place] [address] 03/29/2022 00:00:00 04/19/2022 18:57:15 [id number] Elizabeth Manuel MD [facility] Primary Care [facility] [address] [facility] [address] [place] [address] 08/21/2022 10:20:59 08/21/2022 11:11:05 Degeneration of cervical intervertebral disc 87952124 M50.30 seeing neurosurge ry after failing PT, meds, home traction Adult heal th examination 018370221 Z00.00 Sees sewer and drain technician Dr. Handy for paps and mammograms DEXA done with sewer and drain technician 2022 Cologuard normal 06-01-2020 , repeat 2023 hold g21ifsut labs in December Screening for disorder 180845356 Z13.9 [id number] Elizabeth Manuel MD [facility] Primary Care [address] [place] [address] 02/18/2023 16:09:59 02/18/2023 16:50:22 Essential hypertension 06141167 I10 stable Hypothyroidism 81306458 E03.9 stable Hyperlipidemia 20695984 E78.5 Edema of l ower extremity 259527212 R60.0 likely a combo of htn, amlodipine and dependent edemareass urance givencompr ession stockings, elevation [id number] Elizabeth Manuel MD [facility] Primary Care [address] [place] [address] 08/28/2023 10:23:42 08/28/2023 10:58:23 Adult health examination 194831408 Z00.00 Sees sewer and drain technician Dr. Handy for paps and mammograms DEXA done with sewer and drain technician ologu della normal 06-01-2020 , repeat ordered 2023Shingl es vaccine 12/08, 02/07Prevn ar 13 2016Pneumo vax 23 2017RSV 2024Covid boosters per cdc guidelineF valerie vaccine yearly Screening for disorder 868333864 Z13.9 Screening for malignant neoplasm of colon 128588529 Z12.11 Essential hypertension 94606064 I10 stable Hyperlipidemia 33458165 E78.5 stable Health Concerns Section Related Observation LastModified by Organization Detai ls LastModified Time None Recorded Concern Status LastModified by Organization Details LastModified Time None Recorded Advance Directives Directive None Recorded Payers Encounter Date Sequence Insurance Name Policy Number Policy Waldron Covered Member ID Waldron Member ID Guarantor Name 08/21/2022 1 [facility] (MEDICARE REPLACEMENT/A DVANTAGE - PPO) [id number] Óscar S Pasha [id number] Óscar S Pasha 02/18/2023 1 [facility] (MEDICARE REPLACEMENT/A DVANTAGE - PPO) [id number] Óscar S Pasha [id number] Óscar S Pasha 08/28/2023 1 [facility] (MEDICARE REPLACEMENT/A DVANTAGE - PPO) [id number] Óscar S Pasha [id number] Óscar S Pasha Notes Date Note Type Note Provider Name and Address Organization Details Recorded Time 08/21/2022 text/html here for shar s exam. She is dealing with neck pain. Has done pt, home traction, injections will meet with Dr. Gray to discuss spinal surgery Elizabeth Manuel MD [address], [place], [address], [employer] 09/18/2022 18:13:07 02/18/2023 text/html here for shar [...] Elizabeth Manuel MD [address], [place], [address], [employer] 02/19/2023 09:46:46 08/28/2023 text/html here for shar s exam. No chest pain or sob, no syncopal episodes Elizabeth Manuel MD [address], [place], [address], [employer] 09/08/2023 12:50:30 OBGyn Episode No OBEpisode recorded.
--- OUTSIDE RECORDS SUMMARY | 2024-07-22 07:35 | XMS_ITS | Referral Summary ---
Author Organization [address] Address [address] [place] [address] Care Team Providers Care Membership Manager Name Role Phone Devora Olguin MD Primary Care Provider [phone] Encounters Date Type Department Care Team Description 07/12/2024 Results Follow-Up [facility] Medical Group Cardiology [address] [place], [place] [address] [address] iCaran George MD 07/01/2024 2:00 PM CDT Ancillary Procedure [facility] Medical [facility] Cardiology [address] [place] [address] [place] [phone] FLORES (dyspnea on exertion); Essential hypertension 05/27/2024 11:15 AM VINEGAR MAKER Office Visit [facility] Cardiology [address] [place] [address] [place] [phone] Ciaran George MD FLORES (dyspnea on exertion) [...] results. Assessment & Plan (03/11/2018 9:44 AM VINEGAR MAKER): Will check TSH and free T4 Will [...] rx Assessment & Plan (03/05/2017 9:39 AM VINEGAR MAKER): Check TSH, free T4 Adjust dose of [...] on file Legal Sex Female 10:53 AM VINEGAR MAKER Gender Identity Not on file Sexual Orientation Not on file Last Filed Vital Signs Vital Sign Reading Time Taken Comments Blood Pressure 134/70 05/27/2024 11:19 AM VINEGAR MAKER Pulse 100 05/27/2024 11:19 AM VINEGAR MAKER Temperature 36.6 C (97.8 F) 12/12/2020 2:00 PM CDT Respiratory Rate 12 10/01/2019 9:46 AM CDT Oxygen Saturation 98% 05/27/2024 11:19 AM VINEGAR MAKER Inhaled Oxygen Concentration - - Weight 56.2 kg (124 lb) 05/27/2024 11:19 AM VINEGAR MAKER Height 162.6 cm (5' 4 ) 05/27/2024 11:19 AM VINEGAR MAKER Body Mass Index 21.28 05/27/2024 11:19 AM VINEGAR MAKER Plan of Treatment Not on file Procedures [...] PM CDT Narrative 07/01/2024 2:44 PM CDT [facility] Medical Group Cardiology [address] [facility] [address], [place] [address] [address] [facility] [address], [place] [address] P:[phone] P:[phone] Echocardiographic Report Patient Name: ÓSCAR PAK S : 1945 Study Date: 07/01/2024 1:55:56 PM Gender: F Tech: Location: [facility] Provider: CIARAN GEORGE Height(Cm): 163 BSA: [...] FINDINGS: Interpretation Site: Exam was interpreted at [facility]. Left Ventricle: Normal left ventricular size. Mild [...] tamponade. Electronically Signed By: Ciaran George MD, [facility] 07/01/2024 2:43:17 PM CDT Procedure Note Ciaran George MD - 07/01/2024 [facility] Medical Group Cardiology [address] [facility] [address], [place] [address] [address] [facility] [address], [place], [place] [address] P:[phone] P:[phone] Echocardiographic Report Patient Name: ÓSCAR PAK S : 1945 Study Date: 07/01/2024 1:55:56 PM Gender: F Tech: Location: [place] Ref Provider: CIARAN GEORGE Height(Cm): 163 BSA: [...] FINDINGS: Interpretation Site: Exam was interpreted at [facility]. Left Ventricle: Normal left ventricular size. Mild [...] tamponade. Electronically Signed By: Ciaran George MD, [facility] 07/01/2024 2:43:17 PM CDT Ciaran George MD CV ECHO PROCEDURES Final Result from Last 3 Months Insurance [facility] UHC MEDICARE ADVANTAGE [place] [phone] [facility] MEDICARE ADVANTAGE Care Teams Membership Manager Relationship Specialty Start Date End Date Devora Olguin MD [address] [place] [address] PCP - General Family Medicine 05/27/24
--- OUTSIDE RECORDS SUMMARY | 2024-07-22 07:35 | XMS_ITS | Clinical Summary ---
Author Organization [facility] Address [facility] [place] [address] Care Team Providers Care Instantizer Operator Name Role Phone Norm Nielson Primary Care [...] (Prevnar 13) 06/30/2015 Shingrix 01/23/2019,11/21/2018 Zoster (Zostavax) 26155 Unt/0.65Ml 04/22/2011 Family History Medical History Relation [...] on file Legal Sex Female 1:15 PM CHIEF CHEMIST Gender Identity Not on file Sexual Orientation Not on file Occupation Industry Job Start Date Job End Date Not on file Not on file Not on file Not on file Last Filed Vital Signs Vital Sign Reading Time Taken Comments Blood Pressure 168/82 04/01/2019 8:04 AM CHIEF CHEMIST Pulse 73 04/01/2019 8:04 AM CHIEF CHEMIST Temperature 37.1 C (98.8 F) 04/01/2019 8:04 AM CHIEF CHEMIST Respiratory Rate 16 04/01/2019 8:04 AM CHIEF CHEMIST Oxygen Saturation 97% 04/01/2019 8:04 AM CHIEF CHEMIST Inhaled Oxygen Concentration - - Weight 55.8 kg (123 lb 2 oz) 04/01/2019 8:04 AM CHIEF CHEMIST Height 163.8 cm (5' 4.5 ) 04/01/2019 8:04 AM CHIEF CHEMIST Body Mass Index 20.81 04/01/2019 8:04 AM CHIEF CHEMIST Plan of Treatment Health Maintenance Due Date Last Done Comments Hepatitis C 1963 DTaP, Tdap and Td Vaccines ( 1 - Tdap) 1964 Annual Medicare Wellness Visit 08/23/2011 Dexa Scan (General) 08/23/2011 RSV Immunization or 60+ Years (1 - 1-dose 75+ series) 2021 COVID-19 Vaccine (1 - 2023-2 5 season) 2023 Pneumococcal Vaccine: 65+ Years Completed 07/18/2016, 06/30/2015 Zoster Vaccines Completed 01/23/2019, 11/21/2018, 04/22/2011 Meningococcal B Vaccine Aged Out No l onger eligible based on patient's age to complete this topic Meningococcal Vaccine Aged Out No laura kevin eligible based on patient's age to complete this topic RSV Immunizations Under 20 Months Aged Out No longer eligible b ased on patient's age to complete this topic Insurance Care Teams Instantizer Operator Relationship Specialty Start Date End Date Norm Nielson DO [address] [place] [id number] PCP - General FAMILY PRACTICE 03/10/19
--- OUTSIDE RECORDS SUMMARY | 2024-07-22 07:35 | XMS_ITS | Clinical Summary ---
Author Organization [address] Address [address] [place] [address] Care Team Providers Care Office Automation Clerk Name Role Phone Devora Olguin MD Primary Care Provider Allergies No known active allergies Medications lisinopril [...] results. Assessment & Plan (03/11/2018 9:44 AM RELATIONSHIP BANKER): Will check TSH and free T4 Will [...] rx Assessment & Plan (03/05/2017 9:39 AM RELATIONSHIP BANKER): Check TSH, free T4 Adjust dose of Levothyroxine accordingly . 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 Encounters Date Type Department Care Team Description 07/12/2024 Results Follow-Up [facility] Medical Group Cardiology [address] [facility] [address] [place] [address] Ciaran George MD 07/01/2024 2:00 PM CDT Ancillary Procedure [facility] Cardiology [address] [facility] [address] [place] [phone] FLORES (dyspnea on exertion); Essential hypertension 05/27/2024 11:15 AM RELATIONSHIP BANKER Office Visit [facility] Cardiology [address] [place] [address] [address] [place] [phone] Ciaran George MD FLORES (dyspnea on exertion) [...] Fortino Alive Father Tanisha (Age 73) Mother Heiyd (Age 89) Other Sister Simona Alive Social [...] on file Legal Sex Female 10:53 AM RELATIONSHIP BANKER Gender Identity Not on file Sexual Orientation Not on file Obstetrics History Last Filed Vital Signs Vital Sign Reading Time Taken Comments Blood Pressure 134/70 05/27/2024 11:19 AM RELATIONSHIP BANKER Pulse 100 05/27/2024 11:19 AM RELATIONSHIP BANKER Temperature 36.6 C (97.8 F) 12/12/2020 2:00 PM CDT Respiratory Rate 12 10/01/2019 9:46 AM CDT Oxygen Saturation 98% 05/27/2024 11:19 AM RELATIONSHIP BANKER Inhaled Oxygen Concentration - - Weight 56.2 kg (124 lb) 05/27/2024 11:19 AM RELATIONSHIP BANKER Height 162.6 cm (5' 4 ) 05/27/2024 11:19 AM RELATIONSHIP BANKER Body Mass Index 21.28 05/27/2024 11:19 AM RELATIONSHIP BANKER Plan of Treatment Health Maintenance Due Date Last Done Comments Fall Risk Assessment 1945 Hepatitis C Screening 1945 Osteoporosis Screening-Bone Density Scan 1945 DTaP/Tdap/Td Vaccine (1 - Tdap) 1957 Hepatitis B Screening 1963 Well Visit 65+ 08/23/2011 Depression Screening 09/30/2020 10/01/2019, 03/05/20 17 Influenza Vaccine (Season Ended) 2024 12/31/2018, 02/05/2018, 01/17/2017, Additional history exists Pneumococcal vaccine [...] PM CDT Narrative 07/01/2024 2:44 PM CDT [facility] Medical Group Cardiology [address], [place] [address] [address] [facility] [address], [place] [address] P:[phone] P:[phone] Echocardiographic Report Patient Name: ÓSCAR PAK S : 1945 Study Date: 07/01/2024 1:55:56 PM Gender: F Tech: Location: [facility] Provider: CIARAN GEORGE Height(Cm): 163 BSA: 1.6 [...] FINDINGS: Interpretation Site: Exam was interpreted at [facility]. Left Ventricle: Normal left ventricular size. Mild [...] tamponade. Electronically Signed By: Ciaran George MD, [facility] 07/01/2024 2:43:17 PM CDT Procedure Note Ciaran George MD - 07/01/2024 [facility] Medical Group Cardiology [address] [facility] [address], [place] [address] [address] [facility] [address], [place], [place] [address] P:[phone] P:[phone] Echocardiographic Report Patient Name: ÓSCAR PAK S : 1945 Study Date: 07/01/2024 1:55:56 PM Gender: F Tech: Location: [facility] Provider: CIARAN GEORGE Height(Cm): 163 BSA: 1.6 [...] FINDINGS: Interpretation Site: Exam was interpreted at [facility]. Left Ventricle: Normal left ventricular size. Mild [...] tamponade. Electronically Signed By: Ciaran George MD, [facility] 07/01/2024 2:43:17 PM CDT Ciaran George MD CV ECHO PROCEDURES Final Result from Last [address] [place] [id number] [facility] MEDICARE ADVANTAGE [facility] MEDICARE ADVANTAGE [facility] MEDICARE ADVANTAGE Care Teams Office Automation Clerk Relationship Specialty Start Date End Date Devora Olguin MD [address] [place] [address] PCP - General Family Medicine 05/27/24
[2024-07-22 08:27] LABS: Immunoglobulin G 906 mg/dL (700-1600)
[2024-07-22 08:39] LABS: INR 0.9; Prothrombin Time 12.7 Seconds (11.1-14.7)
[2024-07-22 08:45] LABS: Iron 95 ug/dL (37-170)
[2024-07-22 08:54] LABS: Percent Iron Saturation 26 % (20-50)
[2024-07-23 04:13] LABS: GGT 541 U/L (3-65)
[2024-07-23 17:39] LABS: Alpha-1-Antitrypsin, QN 158 mg/dL (83-199); Ceruloplasmin 28 mg/dL (14-48)
[2024-07-25 07:49] LABS: Immunoglobulin A 230 mg/dL (70-320); TTG IGA AB <1.0 U/mL
[2024-07-27 00:44] LABS: Mitochondrial (M2) Ab (IgG) <20.0 U
[2024-07-27 11:38] LABS: Anti Nuclear Antibody Pattern Nuclear, Centromere; Anti Nuclear Antibody Titer > OR = 1:1280 titer
[2024-07-27 22:04] LABS: LKM 1 Antibody <=20.0 U (<=20.0)
[2024-07-28 02:58] LABS: Actin Antibody (IgG) <20 U (<20)
== END 2024-07-22 07:32 | disposition home or self-care (01) ==
PROVIDERS: Visit Provider Nurse Practitioner
DX: R74.8 Abnormal levels of other serum enzymes (principal); R53.83 Other fatigue; E05.00 Thyrotoxicosis with diffuse goiter without thyrotoxic crisis or storm; K74.60 Unspecified cirrhosis of liver
CPT/HCPCS: 36415; 81596; 82103; 82390; 82728; 82784; 82977; 83516; 83520; 83540; 83550; 84443; 85610; 86038; 86039; 86376

== ENCOUNTER 2024-08-12 14:04 | Outpatient (CLI) | payer MEDICARE, SELFPAY ==
--- NOTE | ~2024-08-12 | MM_ITS ---
EXAMINATION: MM screening jaqueline BI w canelo HISTORY: Screening TECHNIQUE: Craniocaudal and mediolateral oblique 3-D tomosynthesis images were obtained and synthetic 2-D images were generated. CAD analysis was submitted and interpreted. COMPARISON: Comparison to multiple prior studies sequentially, with oldest reviewed study dated 02/20. BREAST PARENCHYMAL COMPOSITION: Dense: The breasts are extremely dense, which lowers the sensitivity of mammography. FINDINGS: There is no evidence of suspicious mass, calcification, or architectural distortion to sugg est malignancy in either breast. There has been no suspicious interval change. IMPRESSION: 1. No mammographic evidence of malignancy. 2. Recommend routine screening mammography in one year. BI-RADS Category 1: Negative Reviewed, dictated and finalized at location A.
--- OUTSIDE RECORDS SUMMARY | 2024-08-12 16:04 | XMS_ITS | Clinical Summary ---
Author Organization [facility] Address [address] [facility] [place] [address] Care Team Providers Care Wellness Assistant Name Role Phone Jess Bird MD Primary Care Provider [phone] Source Comments [facility],non-[facility]rain medical center Affiliates and Associated Physician Practices is amultiple site organization consisting of ambulatory clinics and hospital sitesin [place], [place], [place] and [place]. This disclosure is being madepursuant to the Care Everywhere program and may not contain all information available regarding this patient. Last updated 18.[facility] Social History Tobacco Use Types Packs/Day Years Used Date Smoking Tobacco: Never Assessed Comments Unknown Sex and Gender Information Value Date Recorded Sex Assigned at Not on file Legal Sex Female 12:04 PM POWDER LINE REPAIRER Gender Identity Not on file Sexual Orientation [...] VACCINE (1 - 2023-2 5 season) 2023 DEPRESSION SCREENING 04/22/2024 INFLUENZA VACCINE (Season Ended) 2024 HEPATITIS B VACCINE Aged Out No [...] patient's age to complete this topic [place] [address] [place] [id number] [facility] MANAGED MEDICARE ADV Care Teams Wellness Assistant Relationship Specialty Start Date End Date Jess Bird MD [address] [place] [phone] [facility] - General 08/17/20
--- OUTSIDE RECORDS SUMMARY | 2024-08-12 16:04 | XMS_ITS | Referral Summary ---
Author Organization [address] Address [address] [place] [address] Care Team Providers Care Administrator Name Role Phone Devora Olguin MD Primary Care Provider [phone] Encounters Date Type Department Care Team Description 07/12/2024 Results Follow-Up [facility] Medical Group Cardiology [address] [place], [place] [address] [address] Ciaran George MD 07/01/2024 2:00 PM CDT Ancillary Procedure [facility] Medical [facility] Cardiology [address] [place] [address] [place] [phone] FLORES (dyspnea on exertion); Essential hypertension 05/27/2024 11:15 AM VE TEACHER Office Visit [facility] Cardiology [address] [place] [address] [place] [phone] Ciaran George MD FLORES (dyspnea on exertion) [...] results. Assessment & Plan (03/11/2018 9:44 AM VE TEACHER): Will check TSH and free T4 Will [...] rx Assessment & Plan (03/05/2017 9:39 AM VE TEACHER): Check TSH, free T4 Adjust dose of [...] on file Legal Sex Female 10:53 AM VE TEACHER Gender Identity Not on file Sexual Orientation Not on file Last Filed Vital Signs Vital Sign Reading Time Taken Comments Blood Pressure 134/70 05/27/2024 11:19 AM VE TEACHER Pulse 100 05/27/2024 11:19 AM VE TEACHER Temperature 36.6 C (97.8 F) 12/12/2020 2:00 PM CDT Respiratory Rate 12 10/01/2019 9:46 AM CDT Oxygen Saturation 98% 05/27/2024 11:19 AM VE TEACHER Inhaled Oxygen Concentration - - Weight 56.2 kg (124 lb) 05/27/2024 11:19 AM VE TEACHER Height 162.6 cm (5' 4 ) 05/27/2024 11:19 AM VE TEACHER Body Mass Index 21.28 05/27/2024 11:19 AM VE TEACHER Plan of Treatment Not on file Procedures [...] PM CDT Narrative 07/01/2024 2:44 PM CDT [facility] Medical Group Cardiology [address] [facility] [address], [place] [address] [facility] [address], [place] [address] P:[phone] P:[phone] Echocardiographic Report Patient Name: ÓSCAR PAK S : 1945 Study Date: 07/01/2024 1:55:56 PM Gender: F Tech: Location: [facility] Provider: CIARAN GEORGE Height(Cm): 163 BSA: 1.6 [...] FINDINGS: Interpretation Site: Exam was interpreted at [facility]. Left Ventricle: Normal left ventricular size. [...] tamponade. Electronically Signed By: Ciaran George MD, [facility] 07/01/2024 2:43:17 PM CDT Procedure Note Ciaran George MD - 07/01/2024 [facility] Medical Group Cardiology [address] [facility] [address], [place] [address] [facility] [address], [place], [place] [address] P:[phone] P:[phone] Echocardiographic Report Patient Name: ÓSCAR PAK S : 1945 Study Date: 07/01/2024 1:55:56 PM Gender: F Tech: Location: [place] Ref Provider: CIARAN GEORGE Height(Cm): 163 BSA: [...] FINDINGS: Interpretation Site: Exam was interpreted at [facility]. Left Ventricle: Normal left ventricular size. [...] tamponade. Electronically Signed By: Ciaran George MD, [facility] 07/01/2024 2:43:17 PM CDT Ciaran George MD CV ECHO PROCEDURES Final Result from Last 3 Months Insurance [facility] UHC MEDICARE ADVANTAGE [place] [address] [facility] MEDICARE ADVANTAGE Care Teams Administrator Relationship Specialty Start Date End Date Devora Olguin MD [address] [place] [address] PCP - General Family Medicine 05/27/24
--- OUTSIDE RECORDS SUMMARY | 2024-08-12 16:04 | XMS_ITS | Continuity of Care Document ---
Author Organization [facility] Address [address] [place] [address] Phone Care Team Providers Care Barrel Drum Cutter Name Role Phone Doisy, Edward Unavailable Unavailable Advance Directives Directive Yes / No Effective Date File Name No Information Encounters Encounter Description Practice Location Reason(s) For Visit Diagnoses Date Provider Providers Copied on Encounter [facility], [address], [place], [place], [address], [place] tel:[phone] [facility] No Information [address] Edward. [address], [place], [address], [place]. tel:[phone] Family History Family Member Type Diagnosis Age At Onset No Information Payers Payer name Insurance type Covered alliance party ID Authoriza tion(s) No Information Social [...]
--- OUTSIDE RECORDS SUMMARY | 2024-08-12 16:04 | XMS_ITS | Clinical Summary ---
Author Organization [address] Address [address] [place] [phone] Care Team Providers Care Crop Quantitative Geneticist Name Role Phone Devora Olguin MD Primary Care Provider [phone] Allergies No known active allergies Medications lisinopril [...] results. Assessment & Plan (03/11/2018 9:44 AM RN ASSESSMENT): Will check TSH and free T4 Will [...] rx Assessment & Plan (03/05/2017 9:39 AM RN ASSESSMENT): Check TSH, free T4 Adjust dose of Levothyroxine accordingly . 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 Encounters Date Type Department Care Team Description 07/12/2024 Results Follow-Up [facility] Cardiology [address] [facility] [address] [place] [phone] Ciaran George MD 07/01/2024 2:00 PM CDT Ancillary Procedure [facility] [address] [facility] [address] [place] [phone] FLORES (dyspnea on exertion); Essential hypertension 05/27/2024 11:15 AM RN ASSESSMENT Office Visit [facility] [address] [place] [address] [address] [place] [phone] Ciaran George MD FLORES (dyspnea on exertion) [...] on file Legal Sex Female 10:53 AM RN ASSESSMENT Gender Identity Not on file Sexual Orientation Not on file Obstetrics History Last Filed Vital Signs Vital Sign Reading Time Taken Comments Blood Pressure 134/70 05/27/2024 11:19 AM RN ASSESSMENT Pulse 100 05/27/2024 11:19 AM RN ASSESSMENT Temperature 36.6 C (97.8 F) 12/12/2020 2:00 PM CDT Respiratory Rate 12 10/01/2019 9:46 AM CDT Oxygen Saturation 98% 05/27/2024 11:19 AM RN ASSESSMENT Inhaled Oxygen Concentration - - Weight 56.2 kg (124 lb) 05/27/2024 11:19 AM RN ASSESSMENT Height 162.6 cm (5' 4 ) 05/27/2024 11:19 AM RN ASSESSMENT Body Mass Index 21.28 05/27/2024 11:19 AM RN ASSESSMENT Plan of Treatment Health Maintenance Due Date [...] PM CDT Narrative 07/01/2024 2:44 PM CDT [facility] [address] [address] [address] [facility] [address], [place] [address] P:[phone] P:[phone] Echocardiographic Report Patient Name: ÓSCAR PAK S : 1945 Study Date: 07/01/2024 1:55:56 PM Gender: F Tech: Location: [facility] Provider: CIARAN GEORGE Height(Cm): 163 BSA: [...] Site: Exam was interpreted at [facility]. Left Ventricle: Normal left ventricular size. [...] tamponade. Electronically Signed By: Ciaran George MD, [facility] 07/01/2024 2:43:17 PM CDT Procedure Note Ciaran George MD - 07/01/2024 [facility] [address] [facility] [address] [address] [address] [facility] [address], [place] [address] P:[phone] P:[phone] Echocardiographic Report Patient Name: ÓSCAR PAK S : 1945 Study Date: 07/01/2024 1:55:56 PM Gender: F Tech: Location: [facility] Provider: CIARAN GEORGE Height(Cm): 163 BSA: [...] Site: Exam was interpreted at [facility]. Left Ventricle: Normal left ventricular size. [...] tamponade. Electronically Signed By: Ciaran George MD, [facility] 07/01/2024 2:43:17 PM CDT Ciaran George MD CV ECHO PROCEDURES Final Result from Last [address] [place] [address] [facility] MEDICARE [facility] Address[facility] [address] [place] [address] [facility] MEDICARE ADVANTAGE [facility] MEDICARE ADVANTAGE Care Teams Crop Quantitative Geneticist Relationship Specialty Start Date End Date Devora Olguin MD [address] [place] [address] PCP - General Family Medicine 05/27/24
--- OUTSIDE RECORDS SUMMARY | 2024-08-12 16:04 | XMS_ITS | Encounter Summary ---
Author Organization [facility] Healthcare Address [address] [place] [address] Care Team Providers Care Instrument And Controls Technician Name Role Phone Devora Olguin MD Primary Care Provider [phone] Encounter Details Date Type Department Care Team (Late st Contact Info) Description 07/12/2024 Results Follow-Up [facility] Cardiology [address] [facility] [address], [place] [phone] [place] [address] [place] [address] [address] [place], [place] [id number] Social History Tobacco Use Types Packs/Day Years [...] on file Legal Sex Female 10:53 AM HUMAN RESOURCES ADMINISTRATOR Gender Identity Not on file Sexual Orientation Not on file documented as of this encounter Plan of Treatment Not on file documented as of this encounter Visit Diagnoses Not on filedocumented in this encounter Care Teams Instrument And Controls Technician Relationship Specialty Start Date End Date Devora Olguin [place] [place] [address] PCP - General Family Medicine 05/27/24 documented as of this encounter
--- OUTSIDE RECORDS SUMMARY | 2024-08-12 16:04 | XMS_ITS | Clinical Summary ---
Author Organization [facility] [place] Address [address] [place] [address] Phone Care Team Providers Care Comb Setter Name Role Phone Jess Bird MD Primary Care Provider [phone] Allergies No known active allergies Medications estradiol [...] Provider: Dorene Handy MD [address] [facility] [address] [place] [address] Other: Problem Noted Date Diagnosed Date Abnormal [...] 2021 INFLUENZA VACCINE (#1) [address] [place] [address] MEDICARE PART A AND B [employer] ([employer]) PPO Care Teams Comb Setter Relationship Specialty Start Date End Date Jess Bird MD [address] [address] PCP - General 04/08/15
--- OUTSIDE RECORDS SUMMARY | 2024-08-12 16:04 | XMS_ITS | Clinical Summary ---
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 Gender Identity Not on file Sexual Orientation Not on file Occupation Industry Job Start Date Job End Date Not on file Not on file Not on file Not on file Last Filed Vital Signs Vital Sign Reading Time Taken Comments Blood Pressure 168/82 04/01/2019 8:04 AM ORGANIC SEARCH LEAD Pulse 73 04/01/2019 8:04 AM ORGANIC SEARCH LEAD Temperature 37.1 C (98.8 F) 04/01/2019 8:04 AM ORGANIC SEARCH LEAD Respiratory Rate 16 04/01/2019 8:04 AM ORGANIC SEARCH LEAD Oxygen Saturation 97% 04/01/2019 8:04 AM ORGANIC SEARCH LEAD Inhaled Oxygen Concentration - - Weight 55.8 kg (123 lb 2 oz) 04/01/2019 8:04 AM ORGANIC SEARCH LEAD Height 163.8 cm (5' 4.5 ) 04/01/2019 8:04 AM ORGANIC SEARCH LEAD Body Mass Index 20.81 04/01/2019 8:04 AM ORGANIC SEARCH LEAD Plan of Treatment Health Maintenance Due Date Last Done Comments Hepatitis C 1963 DTaP, Tdap and Td Vaccines ( 1 - Tdap) 1964 Annual Medicare Wellness Visit 08/23/2011 Dexa Scan (General) 08/23/2011 RSV Immunization or 60+ Years (1 - 1-dose 75+ series) 2021 COVID-19 Vaccine (1 - 2023-2 5 season) 2023 Pneumococcal Vaccine: 50+ Years Completed 07/18/2016, 06/30/2015 Zoster Vaccines Completed [...] to complete this topic Insurance Care Teams Open Hearth Furnace Operator Helper Relationship Specialty Start Date End Date Norm Nielson DO [address] [place] [id number] PCP - General FAMILY PRACTICE 03/10/19
== END 2024-08-12 14:05 | disposition home or self-care (01) ==
LOC: ANHIMG 14:06
PROVIDERS: PCP Family Medicine; Visit Provider Obstetrics & Gynecology Gynecology
DX: Z12.31 Encounter for screening mammogram for malignant neoplasm of breast (principal)
CPT/HCPCS: 77063; 77067

== ENCOUNTER 2024-12-18 08:14 | Outpatient (CLI) | payer MEDICARE, SELFPAY ==
--- NOTE | ~2024-12-18 | DEXA_ITS ---
Bone Density Report Name: JCARLOS WHITE Age: 79 Sex: Female Ethnicity: White Date of : 1945 Indication: osteopenia; hyperparathyroidism; height loss; seizure disorder; hysterectomy; Referring Provider: CATALINA LOPEZ Study: Bone densitometry was performed. Exam Date: December 18, 2024 Accession number: [id number] Bone Density: Region BMD T-score Z-score Classification AP Spine(L1-L4) 0.949 -0.9 1.7 Normal Femoral Neck (Left) 0.550 -2.7 -0.5 Osteoporosis Total Hip (Left) 0.740 -1.7 0.3 Osteopenia Femoral Neck (Right) 0.497 -3.2 -0.9 Osteoporosis Total Hip (Right) 0.639 -2.5 -0.5 Osteoporosis Total Hip Mean 0.690 -2.1 -0.1 Osteopenia World Health Organization criteria for BMD impression classify patients as: Normal (T-score at or above -1.0), Osteopenia (T-score between -1.0 and -2.5), or Osteoporosis (T-score at or below -2.5). 10-year Fracture Risk: FRAX not reported because: Some T-score for Spine Total or Hip Total or Femoral Neck at or below -2.5 Previous Exams: -- Region Exam Age BMD T-score BMD Change BMD Change Date g/cm2 vs Baseline vs Previous -- AP Spine (L1-L4) 12/18/2024 79 0.949 -0.9 -5.9%* -3.4%* 06/29/2020 74 0.983 -0.6 -2.5%* -2.9%* 03/05/2018 72 1.012 -0.3 0.3% -1.3% 01/18/2016 70 1.025 -0.2 1.6% 1.6% 07/29/2009 63 1.008 -0.4 Total Hip(Left) 12/18/2024 79 0.740 -1.7 -11.3%* -13.4%* 06/29/2020 74 0.855 -0.7 2.4% -1.6% 03/05/2018 72 0.869 -0.6 4.0%* -1.8% 01/18/2016 70 0.885 -0.5 6.0%* 6.0%* 07/29/2009 63 0.835 -0.9 Total Hip(Right) 12/18/2024 79 0.639 -2.5 -13.7%* -14.7%* 06/29/2020 74 0.749 -1.6 1.2% -2.8% 03/05/2018 72 0.770 -1.4 4.1%* -2.6% 01/18/2016 70 0.791 -1.2 6.8%* 6.8%* 07/29/2009 63 0.740 -1.7 -- *Denotes significance at 95% confidence level, LSC for AP Spine = 0.022 g/cm2, LSC for Total Hip = 0.027 g/cm2 Clinical Information Provided by Patient: Has used the following medications: Vitamin D Has the following medical conditions: Any Seizure Disorders, Hyperparathyroidism, Hysterectomy Patient maximum height was 65 Menopause Age: 51 Onset of menses at age 13 Number of children 3 Impression: The patient has osteoporosis, based on the Right Femoral Neck T-score. The BMD for the AP Spine (L1-L4) decreased, changing by -3.4% since the last DXA exam. The BMD for the Total Hip(Left) decreased, changing by -13.4% since the last DXA exam. The BMD for the Total Hip(Right) decreased, changing by -14.7% since the last DXA exam. Discussion: INCREASED RISK OF FRACTURE. BONE DENSITY IS UNDESIRABLY LOW AT ONE OR MORE SKELETAL SITES, CONSISTENT WITH POSTMENOPAUSAL OSTEOPOROSIS. This patient's lowest T-score meets the World Health Organization's (WHO) criteria for osteoporosis at one or more sites (T-score -2.5 or below). In untreated patients, the risk of osteoporotic fracture increases approximately two-fold for each 1.0 SD decrease in T-score. Low bone density is not the only risk factor for fracture; also consider factors such as patient's age, frailty or poor health, risk of falling, risk of injury, previous osteoporotic fracture, family history of osteoporosis, cigarette smoking, low body weight, etc. Not everyone with low bone mineral density has osteoporosis; osteomalacia and other metabolic bone disorders should also be considered. Patients who have osteoporosis should be evaluated for specific diseases and conditions (secondary causes) that may cause or contribute to bone loss. The [place] Association of Clinical Endocrinologists (AACE) and National Osteoporosis Foundation (NOF) recommend pharmacologic intervention for all postmenopausal women whose T-score is in this range. The patient should follow a healthful lifestyle (good nutrition with adequate calcium and vitamin D, and appropriate weight-bearing exercise). Follow-Up: Consider a repeat BMD and Vertebral Fracture Assessment (VFA) exam in 2 years or sooner if medically necessary, to reassess this patient's status. Reported by: JACOB on 12/18/2024 9:08:00 AM. Reviewed, dictated and finalized at location A.
== END 2024-12-18 08:15 | disposition home or self-care (01) ==
LOC: MICIMG 08:14
PROVIDERS: PCP Family Medicine; Visit Provider Obstetrics & Gynecology Gynecology
DX: Z78.0 Asymptomatic menopausal state (principal); M81.0 Age-related osteoporosis without current pathological fracture; M85.89 Other specified disorders of bone density and structure, multiple sites
CPT/HCPCS: 77080